=== PATIENT | female | born 1940 | race Caucasian/White ===

== ENCOUNTER 2022-04-18 04:24 | Inpatient (IN) | payer MEDICARE, SELFPAY ==
[2022-04-18] VITALS (8 sets, daily range): BP systolic 121–171; BP diastolic 78–117; PULSE 99–150; RESP 16–40; TEMP 36.8–37.1; O2SAT 91–98; BMI 26.2
--- NOTE | ~2022-04-18 | XR_ITS ---
EXAMINATION: XR CHEST CLINICAL INFORMATION: Cough COMPARISON: None TECHNIQUE: Frontal view of the chest was obtained. FINDINGS: Cardiac leads overlie the chest. Bronchial wall thickening. Small left pleural effusion with basilar opacity. No pneumothorax. The cardiomediastinal silhouette is normal in size, with a calcified aorta. Degenerative changes at the glenohumeral joints. XR/XR chest 1V IMPRESSION: Small left pleural effusion. Bronchial wall thickening could be associated with a small airways process or fluid overload.
--- NOTE | ~2022-04-18 | XR_ITS ---
EXAMINATION: XR CHEST CLINICAL INFORMATION: Shortness of breath COMPARISON: 04/22/2022 TECHNIQUE: Frontal view of the chest was obtained. FINDINGS: Lung volumes are symmetric. Redemonstrated small left pleural effusion with adjacent basilar opacity favored to at least partially be due to atelectasis. Redemonstrated trace right pleural effusion. Upper lungs are well-aerated. No evidence of pneumothorax or overt pulmonary edema. Cardiac silhouette is mildly enlarged for technique. There is atherosclerotic calcification along the aorta. No acute osseous findings are seen. XR/XR chest 1V IMPRESSION: Small left pleural effusion with adjacent basilar opacity favored to at least partially be due to atelectasis. Trace right pleural effusion.
--- NOTE | ~2022-04-18 | XR_ITS ---
EXAMINATION: XR PELVIS CLINICAL INFORMATION: Fall. COMPARISON: None TECHNIQUE: AP view of the pelvis. FINDINGS: No fracture of pelvis or hips. There is joint narrowing marginal bone spurs of degenerative joint disease of hips bilateral. The sacroiliac joints and symphysis pubis are normal. XR/XR pelvis 1-2V IMPRESSION: No acute abnormality.
--- NOTE | ~2022-04-18 | CT_ITS ---
EXAMINATION: CT CHEST WITHOUT CONTRAST CLINICAL INFORMATION: Hypoxia. History of Covid infection. COMPARISON: Previous chest x-ray 04/18/2022 TECHNIQUE: Multidetector volumetric CT imaging of the chest was done. Axial MIP volume rendering provided. Sagittal and coronal reformatted images were obtained. This CT examination was performed using dose optimization techniques as appropriate, variously including the following: *Automated exposure control *Adjustment of mA and/or kV according to patient size (this includes techniques or standardized protocols for targeted exams where dose is matched to indication/reason for exam; i.e. extremities or head) *Use of iterative reconstruction technique DLP: 195 mGy-cm FINDINGS: LUNGS: There are patchy bilateral infiltrates, greatest at the left lung base in the lingula and left lower lobe. No definite evidence of pulmonary edema is seen. MEDIASTINUM: The heart is very enlarged. There is coronary artery calcification. There is a very small pericardial effusion. There are no enlarged hilar or mediastinal lymph nodes. The thoracic aorta is upper normal in size. There is a 1.5 x 2.8 cm left thyroid nodule. PLEURA: There are large left and small right pleural effusions. AXILLA: No lymphadenopathy. No chest wall mass. Diffuse subcutaneous edema. UPPER ABDOMEN: 3 cm cyst in the left kidney. OSSEOUS STRUCTURES: Question old versus compression fracture and the left superior endplate of the L1 vertebral body. CT/CT chest wo con IMPRESSION: Very enlarged heart. Large left and small right pleural effusions. Bilateral infiltrates greatest at the left lung base in the lingula and left lower lobe. No evidence of pulmonary edema. Left thyroid nodule. Follow-up thyroid ultrasound recommended. Fleischner guidelines were followed.
--- NOTE | ~2022-04-18 | CT_ITS ---
EXAMINATION: CT ANGIOGRAM OF THE CHEST WITH AND WITHOUT CONTRAST (CT PULMONARY ANGIOGRAM FOR PE) CLINICAL INFORMATION: Reason for Exam to eval for PE COMPARISON: None TECHNIQUE: Prior to contrast administration, noncontrast localization images were obtained. Subsequently, multidetector volumetric imaging was performed from the thoracic inlet to below the diaphragms following the administration of 80 mL Omnipaque 350 intravenous contrast. No contrast reaction reported Sagittal, coronal, and MIP oblique sagittal reformatted images were obtained on the CT workstation, uploaded to PACS, and reviewed. This CT examination was performed using dose optimization techniques as appropriate, variously including the following: *Automated exposure control *Adjustment of mA and/or kV according to patient size (this includes techniques or standardized protocols for targeted exams where dose is matched to indication/reason for exam; i.e. extremities or head) *Use of iterative reconstruction technique Total exam dose-length product 133 mGy-cm FINDINGS: QUALITY OF STUDY/CONTRAST BOLUS: Satisfactory. PULMONARY ARTERIES: No central or segmental pulmonary emboli. THORACIC AORTA: There is no evidence of aneurysm. LUNG: There is compressive atelectasis left lung base. PLEURA: There is a small to moderate left pleural effusion with mild loculated fluid in the left major fissure. There is a small right pleural effusion seen. MEDIASTINUM: The heart size enlarged. There is no pericardial effusion. Central trachea and the bronchi widely patent. The thyroid lobes are symmetrical and normal. No evidence of septal bowing or right heart strain. CHEST WALL/AXILLA: No axillary or internal mammary lymphadenopathy. OSSEOUS STRUCTURES: No lytic or sclerotic process seen. UPPER ABDOMEN: Visualized liver, spleen appears unremarkable. No reflux of contrast into the hepatic veins to suggest elevated right heart pressures. CT/CT angio chest PE protocol IMPRESSION: No evidence of PE. No evidence of aortic dissection. Small to moderate left and small right pleural effusion with dependent bibasilar compressive atelectasis. VTE: negative
--- NOTE | ~2022-04-18 | CT_ITS ---
EXAMINATION: NONCONTRAST HEAD CT NONCONTRAST CERVICAL SPINE CT INDICATION INFORMATION: Fall COMPARISON: None TECHNIQUE: Separate noncontrast CT examinations of the head and cervical spine were performed. Coronal and sagittal images were created for each examination at the technologist workstation. This CT examination was performed using dose optimization techniques as appropriate, variously including the following: *Automated exposure control *Adjustment of mA and/or kV according to patient size (this includes techniques or standardized protocols for targeted exams where dose is matched to indication/reason for exam; i.e. extremities or head) *Use of iterative reconstruction technique DLP: 1118 mGy-cm FINDINGS: Head: There is no evidence of acute intracranial hemorrhage or territorial infarction. No abnormal mass effect or midline shift is seen. Boothe to white matter differentiation is well preserved. No extra-axial fluid collections are identified. No hydrocephalus. Proportional prominence of the ventricles and sulcal spaces is consistent with moderate volume loss. Confluent periventricular and deep white matter hypoattenuation is consistent with severe small vessel ischemic changes. No acute osseous or soft tissue abnormality. The mastoid air cells and visualized portions of the paranasal sinuses are well aerated. Cervical spine: There is anatomic alignment of the vertebral bodies and posterior elements. The atlantoaxial and atlantooccipital articulations are intact. Vertebral body heights are maintained. There is multilevel intervertebral disc space narrowing with endplate osteophyte formation and facet arthropathy. No evidence of acute fracture. No prevertebral soft tissue swelling. Visualized portions of the lung apices are unremarkable. The left lobe of the thyroid gland is enlarged. CT/CT cervical spine wo con IMPRESSION: 1. No acute intracranial finding. 2. No acute fracture or malalignment of the cervical spine. Mild degenerative change.
--- NOTE | ~2022-04-18 | CT_ITS ---
EXAMINATION: CT HEAD WITHOUT CONTRAST CLINICAL INFORMATION: Unwitnessed fall, on Eliquis, rule out intracranial abnormality. COMPARISON: 04/18/[address] scan[address] TECHNIQUE: Contiguous axial imaging was performed from the skull base to vertex without intravenous administration of contrast. Coronal and sagittal reformatted images were obtained. This CT examination was performed using dose optimization techniques as appropriate, variously including the following: *Automated exposure control *Adjustment of mA and/or kV according to patient size (this includes techniques or standardized protocols for targeted exams where dose is matched to indication/reason for exam; i.e. extremities or head) *Use of iterative reconstruction technique DLP: 666 mGy-cm FINDINGS: There is no evidence of acute intracranial hemorrhage or territorial infarction. Mild to moderate periventricular microvascular changes are seen. Left basal ganglia lacunar infarct versus perivascular space without significant change. No abnormal mass effect or midline shift is seen. Boothe to white matter differentiation is well preserved. No extra-axial fluid collections are identified. The ventricles are normal in size. There is no abnormal attenuation within the brain parenchyma. The osseous structures and soft tissues are normal. The mastoid air cells and visualized portions of the paranasal sinuses are well aerated. CT/CT head/brain wo con IMPRESSION: No acute intracranial pathology.
--- NOTE | 2022-04-18 04:28 | ECG_ITS ---
Test Reason : fall,weakness Blood Pressure : / mmHG Vent. Rate : 141 BPM Atrial Rate : 000 BPM P-R Int : 000 ms QRS Dur : 154 ms QT Int : 356 ms P-R-T Axes : 000 042 -28 degrees QTc Int : 545 ms Atrial fibrillation with rapid ventricular response Right bundle branch block Abnormal ECG No previous ECGs available Referred By: Gayle Delvalle Electronically Signed By:Manny Mitchell
--- NOTE | 2022-04-18 04:39 | ED.GENADULT ---
HPI - General Adult General Chief complaint: Dyspnea Stated complaint: heart palp,sob,on ground for hours s/p fall,no inj Time Seen by Provider: 04/18/22 04:27 Source: patient Mode of arrival: EMS History of Present Illness HPI narrative: 81-year-old female with possible COVID exposure, has not been to a physician since she gave to her daughter. She is not on any prescription medications but reports she has been having shortness of breath with lower extremity swelling as well as a racing heart for approximately 1 month. She reports that she fell and states that she went backwards striking her head. In addition, patient reports that she has the suspected COVID-19 exposure. Related Data Home Medications Medication Instructions Recorded Confirmed No Known Home Meds 04/18/22 04/18/22 Allergies Allergy/AdvReac Type Severity Reaction Status Date / Time No Known Allergies Allergy Verified 04/18/22 06:55 Review of Systems Review of Systems: Pertinent positives and negatives as stated in HPI 10 point review of systems is otherwise negative. [facility] Past Medical History Source: nursing notes reviewed Social History Social History Smoked in Last 30 Days: No Use of substances other than those prescribed or required for medical reasons: No Advance Directives: No Physical Exam ED Vital Signs: Vital Signs - 24 hr 04/18/22 04:27 04/18/22 06:07 Temperature 98.7 F Pulse Rate 145 H 130 H Respiratory Rate 40 H 30 H Blood Pressure 171/117 H 159/113 H Pulse Oximetry 91 L 94 Oxygen Delivery Method Nasal Cannula Nasal Cannula Oxygen Flow Rate 3 BMI result Body Mass Index 26.2 VITAL SIGNS: Reviewed. GENERAL: Well developed, well nourished, in no acute distress. HEAD: Normocephalic/atraumatic, EYES: PERRLA, EOMI EARS: Ext canals without abnormality NOSE: Nares patent bilateral OROPHARYNX: no oral lesions noted, posterior pharynx clear and non-erythematous without noted tonsillar enlargement/erythema/exudates NECK: C-collar is in place, no adenopathy, no midline cervical spine tenderness LUNGS: Normal breath sounds, no obvious wheeze/rhonchi/rales, but tachypnea is present. SpO2 <91> on 3 L nasal cannula CARDIOVASCULAR: Regular rate and rhythm without noted murmurs, no JVD bilateral 2+ pitting edema ABDOMEN: Soft, non-tender, non-distended with bowel sounds. MUSCULOSKELETAL: No tenderness, deformities, or effusions noted on gross inspection. EXTREMITIES: No cyanosis, clubbing or edema. SKIN: Inspection of the skin reveals no rashes NEUROLOGIC: Alert and oriented x 4. Strength and sensation to light touch were grossly intact x 4. Course Course Course Narrative: 81-year-old female with history and clinical presentation most consistent with atrial fibrillation/RVR with CHF exacerbation and associated hypoxia and suspect possibility of COVID-19. On review of all investigations findings consistent with CHF exacerbation likely secondary to atrial fibrillation with RVR and subsequent hypoxia that may be associated with patient's positive COVID-19 results. Patient did receive a total of 10 mg of Lopressor as well as 40 mg of Lasix (she is naive). Patient's elevated heart rate and hypoxia and not secondary to bacterial infection. I discussed the case with Dr. Wayne who accepts admission and understands we will repeat the troponin although initial elevation is felt to be demand in nature. Reevaluation(s) Reevaluation #1: Troponin-225.2, however this in the context no reported chest pain as well as tachycardia. Time: 05:36 Medical Decision Making Lab Data Result diagrams: 04/18/22 05:05 04/18/22 05:05 Labs: Lab Results 04/18/22 04/18/22 04/18/22 Range/Units 05:05 05:05 05:05 WBC 12.7 H (4.8-10.8) X10*3/uL RBC 5.44 (4.20-5.50) X10*6/uL Hgb 15.2 (12.0-16.0) g/dl Hct 46.7 (37.0-47.0) % MCV 85.8 (80.0-98.0) fL MCH 27.9 (27.0-33.0) pg MCHC 32.5 (31.0-35.0) g/dl RDW 17.1 H (11.0-16.0) % Plt Count 200 (160-400) X10*3/uL MPV 10.9 (9.4-12.3) fL Immature Gran % (Auto) 0.4 (0.0-0.4) % Neut % (Auto) 84.9 H (45-73) % Lymph % (Auto) 2.9 L (20-40) % [place] % (Auto) 11.6 H (2-11) % Eos % (Auto) 0.0 (0-4) % Baso % (Auto) 0.2 (0-2) % Lymph # (Auto) 0.4 L (1.2-4.9) X10*3/uL [place] # (Auto) 1.5 H (0.1-1.2) X10*3/uL Eos # (Auto) 0.0 (0.0-0.4) X10*3/uL Baso # (Auto) 0.0 (0.0-0.2) X10*3/uL Abs Immat Gran (auto) 0.05 H (0.00-0.03) X10*3/uL Absolute Neuts (auto) 10.8 H (2.0-8.3) x10*3/uL Absolute Nucleated RBC 0.000 (0.0-0.012) X10*3/uL Nucleated RBC % (auto) 0.0 (0.0-0.2) /100WBC PT 14.8 H (10.0-13.1) SEC INR 1.3 H (0.9-1.1) Sodium 139 (135-145) mmol/L Potassium 4.3 (3.3-5.1) mmol/L Chloride 107 (96-108) mmol/L Carbon Dioxide 19 L (22-29) mmol/L Anion Gap 17 (12-20) BUN 16 (9-16) mg/dL Creatinine 1.21 (0.5-1.4) mg/dL Estim Creat Clear Calc 36.1 Estimated GFR 42 Random Glucose 135 H (60-115) mg/dL Calcium 8.5 (8.4-10.2) mg/dL Total Bilirubin 1.1 H (0.0-1.0) mg/dL AST 22 (5-31) U/L ALT 11 (0-31) U/L Alkaline Phosphatase 77 (39-117) U/L Total Creatine Kinase 150 H (26-140) U/L Troponin I High Sens (<3.5-17.0) ng/L B-Natriuretic Peptide (<100) pg/mL Total Protein 5.5 L (6.5-8.0) g/dL Albumin 3.3 L (3.5-5.0) g/dL Urine Color Urine Appearance Urine pH (5.0-8.0) Ur Specific [place] (1.005-1.025) Urine Protein (NEG-TRACE) MG/DL Urine Glucose (UA) (NEG) MG/DL Urine Ketones (NEG) MG/DL Urine Blood (NEG) Urine Nitrite (NEG) Ur Leukocyte Esterase (NEG) Urine RBC (0) /HPF Urine WBC (0-4) /HPF Ur Squamous Epith Cells /LPF Urine Bacteria /LPF Urine Mucus /LPF COVID-19 ([facility]) (Negative) COVID-19 Clin Com 04/18/22 04/18/22 04/18/22 Range/Units 05:05 05:05 05:18 WBC (4.8-10.8) X10*3/uL RBC (4.20-5.50) X10*6/uL Hgb (12.0-16.0) g/dl Hct (37.0-47.0) % MCV (80.0-98.0) fL MCH (27.0-33.0) pg MCHC (31.0-35.0) g/dl RDW (11.0-16.0) % Plt Count (160-400) X10*3/uL MPV (9.4-12.3) fL Immature Gran % (Auto) (0.0-0.4) % Neut % (Auto) (45-73) % Lymph % (Auto) (20-40) % [place] % (Auto) (2-11) % Eos % (Auto) (0-4) % Baso % (Auto) (0-2) % Lymph # (Auto) (1.2-4.9) X10*3/uL [place] # (Auto) (0.1-1.2) X10*3/uL Eos # (Auto) (0.0-0.4) X10*3/uL Baso # (Auto) (0.0-0.2) X10*3/uL Abs Immat Gran (auto) (0.00-0.03) X10*3/uL Absolute Neuts (auto) (2.0-8.3) x10*3/uL Absolute Nucleated RBC (0.0-0.012) X10*3/uL Nucleated RBC % (auto) (0.0-0.2) /100WBC PT (10.0-13.1) SEC INR (0.9-1.1) Sodium (135-145) mmol/L Potassium (3.3-5.1) mmol/L Chloride (96-108) mmol/L Carbon Dioxide (22-29) mmol/L Anion Gap (12-20) BUN (9-16) mg/dL Creatinine (0.5-1.4) mg/dL Estim Creat Clear Calc Estimated GFR Random Glucose (60-115) mg/dL Calcium (8.4-10.2) mg/dL Total Bilirubin (0.0-1.0) mg/dL AST (5-31) U/L ALT (0-31) U/L Alkaline Phosphatase (39-117) U/L Total Creatine Kinase (26-140) U/L Troponin I High Sens 225.2 H* (<3.5-17.0) ng/L B-Natriuretic Peptide 1417 H (<100) pg/mL Total Protein (6.5-8.0) g/dL Albumin (3.5-5.0) g/dL Urine Color DK YELLOW Urine Appearance HAZY Urine pH 6.0 (5.0-8.0) Ur Specific [place] >= 1.030 H (1.005-1.025) Urine Protein 2+ H (NEG-TRACE) MG/DL Urine Glucose (UA) NEG (NEG) MG/DL Urine Ketones 15 (NEG) MG/DL Urine Blood 2+ H (NEG) Urine Nitrite POS H (NEG) Ur Leukocyte Esterase NEG (NEG) Urine RBC 1-4 (0) /HPF Urine WBC 5-9 H (0-4) /HPF Ur Squamous Epith Cells TRACE /LPF Urine Bacteria 1+ /LPF Urine Mucus 1+ /LPF COVID-19 ([facility]) Positive A (Negative) COVID-19 Clin Com See Note ECG Data Attestation: I personally reviewed and interpreted this ECG as follows: Prior ECG tracings: not available for review Interpretation: Atrial fibrillation with RVR, right bundle branch block, no EKG for comparison, no STEMI, HR-141. Critical Care Time Critical Care Time Critical Care Time: Yes Total Critical Care Time: 30 Attestation: I personally attest to this time spent taking care of the patient. Discharge Plan Discharge Clinical Impression: Atrial fibrillation with RVR, CHF exacerbation, Hypoxia, Lab test positive for detection of COVID-19 virus Patient Disposition: Admitted As Inpatient
[2022-04-18] MEDS: Furosemide 40 MG/4 ML VIAL IVPUSH ×2 (04:40→18:07)
[2022-04-18] MEDS: Metoprolol Tartrate 5 MG/5 ML VIAL IVPUSH ×3 (04:40→07:20)
[2022-04-18 05:09] LABS: MANUAL DIFF FLAG NO
[2022-04-18 05:10] LABS: Basophils Percent Auto 0.2 % (0-2); Hematocrit 46.7 % (37.0-47.0); Hemoglobin 15.2 g/dl (12.0-16.0); Imm Gran Abs Auto 0.05 X10*3/uL (0.00-0.03); Imm Gran Pct Auto 0.4 % (0.0-0.4); Lymphocytes Absolute Auto 0.4 X10*3/uL (1.2-4.9); Lymphocytes Percent Auto 2.9 % (20-40); Mean Corpuscular HGB Conc 32.5 g/dl (31.0-35.0); Mean Corpuscular Hemoglobin 27.9 pg (27.0-33.0); Mean Corpuscular Volume 85.8 fL (80.0-98.0); Mean Platelet Volume 10.9 fL (9.4-12.3); Monocytes Absolute Auto 1.5 X10*3/uL (0.1-1.2); Monocytes Percent Auto 11.6 % (2-11); Neutrophils Absolute Auto 10.8 x10*3/uL (2.0-8.3); Neutrophils Percent Auto 84.9 % (45-73); Platelet Count 200 X10*3/uL (160-400); Red Blood Count 5.44 X10*6/uL (4.20-5.50); Red Cell Distribution Width 17.1 % (11.0-16.0); White Blood Count 12.7 X10*3/uL (4.8-10.8)
[2022-04-18 05:11] LABS: Appearance Urine HAZY; Color Urine DK YELLOW; Glucose Urine UA NEG (NEG); Leukocyte Esterase Urine NEG (NEG); Nitrite Urine POS (NEG); Specific Gravity - Urine >= 1.030 (1.005-1.025); UACC Culture Trigger YES; Urine Blood 2+ (NEG); Urine Ketones 15 MG/DL (NEG); Urine Protein 2+ MG/DL (NEG-TRACE)
[2022-04-18 05:16] LABS: INTERNATIONAL NORM RATIO 1.3 (0.9-1.1); Prothrombin Time 14.8 SEC (10.0-13.1)
[2022-04-18 05:18] LABS: Bacteria Urine 1+ /LPF; Mucus Urine 1+ /LPF; Squamous Epithelial Cell Urine TRACE /LPF
[2022-04-18 05:29] LABS: Alanine Aminotransferase 11 U/L (0-31); Albumin Level 3.3 g/dL (3.5-5.0); Alkaline Phosphatase 77 U/L (39-117); Anion Gap 17 (12-20); Aspartate Amino Transferase 22 U/L (5-31); Bilirubin Total 1.1 mg/dL (0.0-1.0); Blood Urea Nitrogen 16 mg/dL (9-16); Calcium 8.5 mg/dL (8.4-10.2); Carbon Dioxide 19 mmol/L (22-29); Chloride 107 mmol/L (96-108); Creatinine Clr Calc Pharmacy 36.1; Estimated Glomerular Filt Rate 42; Glucose Random 135 mg/dL (60-115); Potassium 4.3 mmol/L (3.3-5.1); Sodium 139 mmol/L (135-145); Total Protein 5.5 g/dL (6.5-8.0)
[2022-04-18 05:30] LABS: COVID-19 Test Positive (Negative)
[2022-04-18 05:34] LABS: B Type Natriuretic Peptide 1417 pg/mL (<100); Troponin-I High Sensitivity 225.2 ng/L (<3.5-17.0)
[2022-04-18 08:03] LABS: Troponin-I High Sensitivity 251.7 ng/L (<3.5-17.0)
[2022-04-18 08:42] LABS: D Dimer High Sensitivity 561 NG/ML
--- NOTE | 2022-04-18 08:47 | PHA.MEDREC ---
Pharmacy Consult ? Medication Reconciliation Pharmacy has completed the medication reconciliation. Pt states she only takes OTC medications.
[2022-04-18 08:48] LABS: C Reactive Protein 4.46 mg/dL (< or = 0.50); Lactate Dehydrogenase 243 U/L (122-220)
--- NOTE | 2022-04-18 09:05 | PM.IMHP ---
History of Present Illness Date of Service: 04/18/22 Chief Complaint: Fall This is an 81 year old female who denies any significant PMH (although she has not seen a medical provider in > 45 years) who presents to [facility] after sustained a mechanical fall. The patient reports she was ambulating when her socks which are loose caused her slip and fall. She denies any loss of consciousness. She denies any current injury or pain. Upon further questioning about her cardic status, she reports the issues started about 1 month ago. She reports palpitations with exertion began first. SHe reports that slowly over the next weeks, she began feeling short of breath and fatigued with less and less exertion. She reports she noted LE edema as well. She is unsure if she has gained weight. She reports that she felt chills the last few days and on the day prior to admission, a non-productive cough started. She is unaware of any sick contacts. She denies recent travel. She reports she lives alone in a 1 story house. Upon arrival to the ED, the patient was noted to be in rapid a. fib. She has signs and symptoms of fluid overload. Her BNP is elevated and CXR showing pleural effusions. She is also found to be covid positive. She has 3 doses of IV metoprolol, IV lasix. Her HR has improved, but still in the 110s. She has put out 1.3L of urine after lasix but still remains tachypenic with low normal saturations on 3L (90-92). Her covid testing is positive. The patient is unsure if she has received the COVID-19 vaccine. She will now be admitted for further work up and treatment. Review of Systems Review of Systems: negative except HPI PMFSH Cognitive capacity: Denies any known prior medical history Pertinent family history: Heart disease and breast Ca in her mother Surgical History (Updated 04/18/22 @ 09:12 by Lion Quintanilla MD) No pertinent past surgical history Social History (Updated 04/18/22 @ 09:12 by Lion Quintanilla MD) Alcohol intake: never Patient Tobacco Use Status: Never used Tobacco Smoked in Last 30 Days: No Use of substances other than those prescribed or required for medical reasons: No Advance Directives: No Meds Allergies Allergy/AdvReac Type Severity Reaction Status Date / Time No Known Allergies Allergy Verified 04/18/22 06:55 Active Medications: Current Medications Acetaminophen (Acetaminophen 325 Mg Tablet) 650 mg PO Q6H PRN PRN Reason: Pain, Mild (Pain Scale 1-3) Dexamethasone Sodium Phosphate (Dexamethasone Sod Phosphate 4 Mg/Ml Vial) 6 mg IVPUSH DAILY [facility] Stop: 04/27/22 09:01 Furosemide (Furosemide 40 Mg/4 Ml Vial) 40 mg IVPUSH BID@0900,1800 [facility]; Protocol Metoprolol Tartrate (Metoprolol Tartrate 25 Mg Tablet) 25 mg PO Q6H [facility]; Protocol Ondansetron HCl (Ondansetron Hcl 4 Mg/2 Ml Vial) 4 mg IVPUSH Q8H PRN PRN Reason: Nausea and Vomiting Pharmacy Consult (Consult Rx Perform Med Rec) 1 each MISCELLANE ONCE PRN PRN Reason: Consult order Sodium Chloride (0.9 % Sodium Chloride Flush 3 Ml Syringe) 3 ml IVFLUSH QSHIFT [facility] Home Medications Medication Instructions Recorded Confirmed Last Taken Type aspirin 81 mg tablet,delayed 81 mg PO DAILY 04/18/22 04/18/22 Unknown History release vitamin A-vitamin C-vit E-min 1 tab PO DAILY 04/18/22 04/18/22 Unknown History tablet Physical Exam Vital Signs and Narrative: Vital Signs: Last Vital Signs Temp 98.6 F 04/18/22 07:12 Pulse 106 H 04/18/22 07:54 Resp 35 H 04/18/22 07:54 BP 147/94 H 04/18/22 07:54 Pulse Ox 95 04/18/22 07:54 O2 Del Method 04/18/22 07:54 O2 Flow Rate 3 04/18/22 07:54 Oxygen Flow Rate 2 04/18/22 04:27 BMI result Body Mass Index 26.2 Const: Other: Constitutional - Awake and Alert, in mild respiratory distress with rates in the mid to upper 20s Eyes - PERRLA, EOMI Cardiovascular - S1S2, IRR (rates in the 110s on tele); +JVD; 2+ b/l pitting edema in the LE Respiratory - Diminised sounds as the bases Gastrointestinal - NT / ND; +BS; No rebound or guarding - No CVA tenderness Extremities - no calf tenderness bilaterally, Musculoskeletal - Normal inspection, normal ROM Skin - Warm/Dry Neurological - Alert & oriented x3, No focal deficit Psychological - Appropriate affect Results Labs CBC and Chem 7: 0708/22 05:05 04/18/22 05:05 Labs: Laboratory Results - last 24 hr 04/18/22 04/18/22 04/18/22 05:05 05:05 05:05 MCV 85.8 MCH 27.9 MCHC 32.5 RDW 17.1 H Plt Count 200 MPV 10.9 Immature Gran % (Auto) 0.4 Neut % (Auto) 84.9 H Lymph % (Auto) 2.9 L [place] % (Auto) 11.6 H Eos % (Auto) 0.0 Baso % (Auto) 0.2 Lymph # (Auto) 0.4 L [place] # (Auto) 1.5 H Eos # (Auto) 0.0 Baso # (Auto) 0.0 Abs Immat Gran (auto) 0.05 H Absolute Neuts (auto) 10.8 H Absolute Nucleated RBC 0.000 Nucleated RBC % (auto) 0.0 PT 14.8 H INR 1.3 H D-Dimer High Sensitivty Anion Gap 17 Estim Creat Clear Calc 36.1 Estimated GFR 42 Random Glucose 135 H Calcium 8.5 Total Bilirubin 1.1 H AST 22 ALT 11 Alkaline Phosphatase 77 Lactate Dehydrogenase 243 H Total Creatine Kinase 150 H Troponin I High Sens C-Reactive Protein 4.46 H B-Natriuretic Peptide Total Protein 5.5 L Albumin 3.3 L Urine Color Urine Appearance Urine pH Ur Specific [place] Urine Protein Urine Glucose (UA) Urine Ketones Urine Blood Urine Nitrite Ur Leukocyte Esterase Urine RBC Urine WBC Ur Squamous Epith Cells Urine Bacteria Urine Mucus COVID-19 ([facility]) COVID-19 Clin Com 04/18/22 04/18/22 04/18/22 05:05 05:05 05:05 MCV MCH MCHC RDW Plt Count MPV Immature Gran % (Auto) Neut % (Auto) Lymph % (Auto) [place] % (Auto) Eos % (Auto) Baso % (Auto) Lymph # (Auto) [place] # (Auto) Eos # (Auto) Baso # (Auto) Abs Immat Gran (auto) Absolute Neuts (auto) Absolute Nucleated RBC Nucleated RBC % (auto) PT INR D-Dimer High Sensitivty 561 Anion Gap Estim Creat Clear Calc Estimated GFR Random Glucose Calcium Total Bilirubin AST ALT Alkaline Phosphatase Lactate Dehydrogenase Total Creatine Kinase Troponin I High Sens 225.2 H* C-Reactive Protein B-Natriuretic Peptide 1417 H Total Protein Albumin Urine Color DK YELLOW Urine Appearance HAZY Urine pH 6.0 Ur Specific [place] >= 1.030 H Urine Protein 2+ H Urine Glucose (UA) NEG Urine Ketones 15 Urine Blood 2+ H Urine Nitrite POS H Ur Leukocyte Esterase NEG Urine RBC 1-4 Urine WBC 5-9 H Ur Squamous Epith Cells TRACE Urine Bacteria 1+ Urine Mucus 1+ COVID-19 ([facility]) COVID-19 Clin Com 04/18/22 04/18/22 05:18 07:31 MCV MCH MCHC RDW Plt Count MPV Immature Gran % (Auto) Neut % (Auto) Lymph % (Auto) [place] % (Auto) Eos % (Auto) Baso % (Auto) Lymph # (Auto) [place] # (Auto) Eos # (Auto) Baso # (Auto) Abs Immat Gran (auto) Absolute Neuts (auto) Absolute Nucleated RBC Nucleated RBC % (auto) PT INR D-Dimer High Sensitivty Anion Gap Estim Creat Clear Calc Estimated GFR Random Glucose Calcium Total Bilirubin AST ALT Alkaline Phosphatase Lactate Dehydrogenase Total Creatine Kinase Troponin I High Sens 251.7 H* C-Reactive Protein B-Natriuretic Peptide Total Protein Albumin Urine Color Urine Appearance Urine pH Ur Specific [place] Urine Protein Urine Glucose (UA) Urine Ketones Urine Blood Urine Nitrite Ur Leukocyte Esterase Urine RBC Urine WBC Ur Squamous Epith Cells Urine Bacteria Urine Mucus COVID-19 ([facility]) Positive A COVID-19 Clin Com See Note Imaging Radiologist's Impressions: Impressions Cervical Spine CT 04/18/22 05:45 IMPRESSION: 1. No acute intracranial finding. 2. No acute fracture or malalignment of the cervical spine. Mild degenerative change. Head CT 04/18/22 05:45 IMPRESSION: 1. No acute intracranial finding. 2. No acute fracture or malalignment of the cervical spine. Mild degenerative change. Chest X-Ray 04/18/22 06:45 IMPRESSION: Small left pleural effusion. Bronchial wall thickening could be associated with a small airways process or fluid overload. Assessment and Plan (1) CHF exacerbation: Status: Acute Plan This is an 81 year old female who has not seen a medical provider for >45 years who presented to [facility] after a mechanical fall. She is found to be in acute CHF with rapid a. fib rvr + COVID19 positive. She will be admitted for further work up. 1. Acute (new-onset) CHF 1a. Acute respiratory failure with hypoxia Patient is clinically in CHF. Hher BNP, CXR are also consistent with the same. Patient has increased WOB and tahcypnea with 3L O2 required to keep saturation above 90% Has put on 1.3L with IV lasix 40mg; start 40mg BID (next dose to be started later today). 2d Echo and cardiology consult 2. A. Fib with RVR (new-onset) pt endorses symptoms x 1 month rates did improve with IV push metoprolol; will try to avoid cardizem if possible (until echo done); use PO metoprolol 25mg q6 hours for now CHADSVASC score at least 5 (Age, Sex, CHF, HTN); HAS-BLED score 2 (Age, HTN); Discussed risk vs benefits of OAC and patient is agreeable on starting Eliquis. 3. COVID-19 Check inflammatory biomakers IV decadron isoloation per procotol 4. Elevated HS trop-I Flat and likely from demand ischemia (A. fib/CHF/COVID) Full COde DVT pptx -- to start Eliquis Endorses her daughter, Tammie, as health care proxy. In light of the patients new onset a. fib with rvr, acute chf and covid19+, I anticipate a medically necessary, inpatient hospitalization, which is likely to span at least 2 midnights for treatment and monitoring of the above mentioned conditions. This cannot be completed in a less acute setting. Quality Stroke Does the patient have a stroke diagnosis?: No VTE Prior VTE?: No VTE Risk Level:: Medical - moderate - high VTE Device Contraindication: Treatment Not Indicated VTE Drug Contraindication: N/A - Med Ordered
[2022-04-18 09:10] LABS: Ferritin 134 ng/mL (10-250)
--- NOTE | 2022-04-18 10:34 | PM.CNCAR ---
History of Present Illness History of Present Illness Date of Service: 04/18/22 Requesting physician: Lion Quintanilla Chief complaint: A fib, CHF, COVID Narrative: [age] year female presenting for shortness of breath and palpitations and diagnosed with COVID-19 infection. She has been experiencing palpitations and shortness of breath for few months. She said when she ambulates her heart starts racing. She was noted to be in AFib on admission and started on Eliquis and metoprolol 25 mg q.6. She has lower extremity edema as well as shortness of breath ongoing for 1-2 months. Denying any chest pain. Being treated for COVID-19 infection. [facility] Surgical History Surgical History (Updated 04/18/22 @ 09:12 by Lion Quintanilla MD) No pertinent past surgical history Social History Social History (Updated 04/18/22 @ 09:12 by Lion Quintanilla MD) Alcohol intake: never Patient Tobacco Use Status: Never used Tobacco Smoked in Last 30 Days: No Use of substances other than those prescribed or required for medical reasons: No Advance Directives: No Meds Allergies Allergy/AdvReac Type Severity Reaction Status Date / Time No Known Allergies Allergy Verified 04/18/22 06:55 Active Medications: Current Medications Acetaminophen (Acetaminophen 325 Mg Tablet) 650 mg PO Q6H PRN PRN Reason: Pain, Mild (Pain Scale 1-3) Apixaban (Apixaban 5 Mg Tablet) 5 mg PO BID [facility] Dexamethasone Sodium Phosphate (Dexamethasone Sod Phosphate 4 Mg/Ml Vial) 6 mg IVPUSH DAILY [facility] Stop: 04/27/22 09:01 Furosemide (Furosemide 40 Mg/4 Ml Vial) 40 mg IVPUSH BID@0900,1800 [facility]; Protocol Metoprolol Tartrate (Metoprolol Tartrate 25 Mg Tablet) 25 mg PO Q6H [facility]; Protocol Ondansetron HCl (Ondansetron Hcl 4 Mg/2 Ml Vial) 4 mg IVPUSH Q8H PRN PRN Reason: Nausea and Vomiting Pharmacy Consult (Consult Rx Perform Med Rec) 1 each MISCELLANE ONCE PRN PRN Reason: Consult order Sodium Chloride (0.9 % Sodium Chloride Flush 3 Ml Syringe) 3 ml IVFLUSH QSHIFT [facility] Home Medications Medication Instructions Recorded Confirmed Last Taken Type aspirin 81 mg tablet,delayed 81 mg PO DAILY 04/18/22 04/18/22 Unknown History release vitamin A-vitamin C-vit E-min 1 tab PO DAILY 04/18/22 04/18/22 Unknown History tablet Physical Exam Vital Signs: Vital Signs: Last Vital Signs Temp 98.6 F 04/18/22 07:12 Pulse 106 H 04/18/22 07:54 Resp 35 H 04/18/22 07:54 BP 147/94 H 04/18/22 07:54 Pulse Ox 95 04/18/22 07:54 O2 Del Method 04/18/22 07:54 O2 Flow Rate 3 04/18/22 07:54 Oxygen Flow Rate 2 04/18/22 04:27 BMI result Body Mass Index 26.2 GENERAL APPEARANCE: in no acute distress, pleasant. NECK: no carotid bruit, mild jugular venous distention. SKIN: no suspicious lesions, warm and dry. HEART: no murmurs, irregularly irregular rhythm LUNGS: clear to auscultation bilaterally. ABDOMEN: soft, nontender. EXTREMITIES: 2 to 3+ edema to the knees. PERIPHERAL PULSES: equal. NEUROLOGIC: No gross deficits, AAO X 3 Objective Labs and Meds Result diagrams: 04/18/22 05:05 04/18/22 05:05 Lab results: Laboratory Results - last 24 hr 04/18/22 04/18/22 04/18/22 05:05 05:05 05:05 WBC 12.7 H RBC 5.44 Hgb 15.2 Hct 46.7 MCV 85.8 MCH 27.9 MCHC 32.5 RDW 17.1 H Plt Count 200 MPV 10.9 Immature Gran % (Auto) 0.4 Neut % (Auto) 84.9 H Lymph % (Auto) 2.9 L Sutton % (Auto) 11.6 H Eos % (Auto) 0.0 Baso % (Auto) 0.2 Lymph # (Auto) 0.4 L Sutton # (Auto) 1.5 H Eos # (Auto) 0.0 Baso # (Auto) 0.0 Abs Immat Gran (auto) 0.05 H Absolute Neuts (auto) 10.8 H Absolute Nucleated RBC 0.000 Nucleated RBC % (auto) 0.0 PT 14.8 H INR 1.3 H D-Dimer High Sensitivty Sodium 139 Potassium 4.3 Chloride 107 Carbon Dioxide 19 L Anion Gap 17 BUN 16 Creatinine 1.21 Estim Creat Clear Calc 36.1 Estimated GFR 42 Random Glucose 135 H Calcium 8.5 Ferritin 134 Total Bilirubin 1.1 H AST 22 ALT 11 Alkaline Phosphatase 77 Lactate Dehydrogenase 243 H Total Creatine Kinase 150 H Troponin I High Sens C-Reactive Protein 4.46 H B-Natriuretic Peptide Total Protein 5.5 L Albumin 3.3 L Procalcitonin Urine Color Urine Appearance Urine pH Ur Specific [place] Urine Protein Urine Glucose (UA) Urine Ketones Urine Blood Urine Nitrite Ur Leukocyte Esterase Urine RBC Urine WBC Ur Squamous Epith Cells Urine Bacteria Urine Mucus COVID-19 ([facility]) COVID-19 Clin Com 04/18/22 04/18/22 04/18/22 05:05 05:05 05:05 WBC RBC Hgb Hct MCV MCH MCHC RDW Plt Count MPV Immature Gran % (Auto) Neut % (Auto) Lymph % (Auto) Sutton % (Auto) Eos % (Auto) Baso % (Auto) Lymph # (Auto) Sutton # (Auto) Eos # (Auto) Baso # (Auto) Abs Immat Gran (auto) Absolute Neuts (auto) Absolute Nucleated RBC Nucleated RBC % (auto) PT INR D-Dimer High Sensitivty 561 Sodium Potassium Chloride Carbon Dioxide Anion Gap BUN Creatinine Estim Creat Clear Calc Estimated GFR Random Glucose Calcium Ferritin Total Bilirubin AST ALT Alkaline Phosphatase Lactate Dehydrogenase Total Creatine Kinase Troponin I High Sens 225.2 H* C-Reactive Protein B-Natriuretic Peptide 1417 H Total Protein Albumin Procalcitonin Urine Color DK YELLOW Urine Appearance HAZY Urine pH 6.0 Ur Specific [place] >= 1.030 H Urine Protein 2+ H Urine Glucose (UA) NEG Urine Ketones 15 Urine Blood 2+ H Urine Nitrite POS H Ur Leukocyte Esterase NEG Urine RBC 1-4 Urine WBC 5-9 H Ur Squamous Epith Cells TRACE Urine Bacteria 1+ Urine Mucus 1+ COVID-19 ([facility]) COVID-19 Clin Com 04/18/22 04/18/22 04/18/22 05:05 05:18 07:31 WBC RBC Hgb Hct MCV MCH MCHC RDW Plt Count MPV Immature Gran % (Auto) Neut % (Auto) Lymph % (Auto) Sutton % (Auto) Eos % (Auto) Baso % (Auto) Lymph # (Auto) Sutton # (Auto) Eos # (Auto) Baso # (Auto) Abs Immat Gran (auto) Absolute Neuts (auto) Absolute Nucleated RBC Nucleated RBC % (auto) PT INR D-Dimer High Sensitivty Sodium Potassium Chloride Carbon Dioxide Anion Gap BUN Creatinine Estim Creat Clear Calc Estimated GFR Random Glucose Calcium Ferritin Total Bilirubin AST ALT Alkaline Phosphatase Lactate Dehydrogenase Total Creatine Kinase Troponin I High Sens 251.7 H* C-Reactive Protein B-Natriuretic Peptide Total Protein Albumin Procalcitonin 0.30 Urine Color Urine Appearance Urine pH Ur Specific [place] Urine Protein Urine Glucose (UA) Urine Ketones Urine Blood Urine Nitrite Ur Leukocyte Esterase Urine RBC Urine WBC Ur Squamous Epith Cells Urine Bacteria Urine Mucus COVID-19 ([facility]) Positive A COVID-19 Clin Com See Note Imaging Radiologist's impression: Impressions Cervical Spine CT 04/18/22 05:45 IMPRESSION: 1. No acute intracranial finding. 2. No acute fracture or malalignment of the cervical spine. Mild degenerative change. Head CT 04/18/22 05:45 IMPRESSION: 1. No acute intracranial finding. 2. No acute fracture or malalignment of the cervical spine. Mild degenerative change. Chest X-Ray 04/18/22 06:45 IMPRESSION: Small left pleural effusion. Bronchial wall thickening could be associated with a small airways process or fluid overload. Assessment and Plan (1) Atrial fibrillation with RVR: Status: Acute (2) CHF exacerbation: Status: Acute Plan Pleasant 81-year-old female who is presenting for COVID-19 infection. She has AFib with RVR and evidence of congestive heart failure. Agree with IV diuretics. Agree with Eliquis and metoprolol for now. If heart rate is not controlled with metoprolol then I will consider digoxin loading. Recommend echocardiogram to assess for any LV dysfunction or RV strain. If any RV dysfunction is noted then she will require CT pulmonary angiogram to rule out PE. We will follow along with you. Thank you for allowing me to participate in the care of your patient. Please feel free to contact me if you have any questions. Procedures Date of Service Date of Service: 04/18/22
--- NOTE | 2022-04-18 11:00 | CA_ITS ---
Transthoracic Echocardiogram Patient (Last, First, Middle): Shanti Shipley, Gender: Female Date of : 1940 Age: 81 Procedure Date: 04/18/2022 Procedure Type: Transthoracic Echocardiogram Location: [facility] [place] Height: 167.64 cm Weight: 75.75 kg BSA: 1.85 m2 Heart Rate: 104 bpm BP: 147 / 94 mmHg Dehydrogenation Supervisor: SB Referring MD: Lion Quintanilla MD Production Supervisor Off Shift: Manny Mitchell MD Symptoms: new onset a. fib and chf Study Quality: Adequate ECG Rhythm: Afib w RVR Conclusions: - There is mildly increased left ventricular wall thickness. The left ventricular systolic function is severely decreased. The visually estimated ejection fraction is between 10-15%. - Normal right ventricular cavity size. There is severely decreased right ventricular systolic function. - The left atrium is moderately dilated. RA is dilated. - There is mild to moderate tricuspid valve regurgitation. Significantly elevated right atrial pressure. Mild pulmonary hypertension is present. - There is mild dilatation of the ascending aorta measuring 3.50 cm. - There is a moderate pleural effusion. Findings Left Ventricle There is mildly increased left ventricular wall thickness. The left ventricular systolic function is severely decreased. The visually estimated ejection fraction is between 10-15%. There is severe global hypokinesis. Diastolic function is indeterminate on the basis of available data. Left ventricle is dilated. Right Ventricle Normal right ventricular cavity size. There is severely decreased right ventricular systolic function. Atria The left atrium is moderately dilated. RA is dilated. Aortic Valve There is a normal trileaflet aortic valve. There is mild calcification of the aortic valve. There is no aortic valve stenosis. There is trace (trivial) aortic valve regurgitation. Mitral Valve There is severe mitral annular calcification. There is trace mitral valve regurgitation. There is no mitral valve stenosis. Pulmonic Valve Normal pulmonic valve structure and function. There is trace pulmonic valve regurgitation. Tricuspid Valve Normal tricuspid valve structure and function. There is mild to moderate tricuspid valve regurgitation. Significantly elevated right atrial pressure. Mild pulmonary hypertension is present. Great Vessels There is mild dilatation of the ascending aorta measuring 3.50 cm. The visualized portions of the pulmonary artery and branches are normal. Venous The inferior vena cava is dilated and collapses less than 50% with inspiration. Pericardium/Pleural There is no evidence of pericardial effusion. There is a moderate pleural effusion. Prior Study Comparison No prior study available for comparison. Measurements 2D Linear Measurements IVSd: 1.11 0.6-0.9/0.6-1.0 cm LVIDd: 6.01 3.9-5.3/4.2-5.9 cm LVIDd Index: 3.25 2.4-3.2/2.2-3.1 cm/m2 LVIDs: 5.59 2.0-3.6 cm LVPWd: 0.90 0.7-1.1 cm LA Diam: 3.90 2.7-3.8/3.0-4.0 cm LAIDs Index: 2.11 1.5-2.3 cm/m2 LV Mass: 311.52 67-162/88-224 g LV Mass Index: 168.39 43-95/49-115 g/m2 LVOT Diam: 2.20 3.0+(-)1.3 cm 2D Systolic Function EF 4C: 28.70 >55% EF 2C: 10.70 >55% EF BiP: 18.20 >55% Aortic Valve AoV Pk Stepan: 1.08 AoV Mn Stepan: 0.80 AoV VTI: 0.14 AoV Pk Grad: 5.00 Aov Mn Grad: 3.00 MARLENE Cont.VTI: 2.25 LVOT LVOT Pk Stepan: 0.60 LVOT Mn Stepan: 0.42 LVOT VTI: 0.08 LVOT Pk Grad: 1.00 LVOT Mn Grad: 1.00 LVOT Diam: 2.20 LVOT Area: 3.80 Right Ventricle TAPSE (mm): 7.70 TVS' Stepan: 6.60 Tricuspid Valve TR Pk Stepan: 2.51 TR Pk Grad: 25.00 RA Press: 15.00 RVSP: 40.00 Great Vessels Aorta Sinus of Valsalva: 3.10 2.0-3.5 cm Ao Asc: 3.50 2.1-3.4 cm Pulmonary Valve PV Pk Stepan: 0.55 Peak PV Grad: 1.00 Updated in Other Vendor System with Status of Final Manny Mitchell MD electronically signed on 04/19/2022 9:41:47 AM with status of Final
[2022-04-18] MEDS: Apixaban 5 MG TABLET PO ×2 (11:46→20:36)
[2022-04-18] MEDS: dexAMETHasone sod phosphate 4 MG/ML VIAL 6 MG IVPUSH (11:46)
[2022-04-18] MEDS: Metoprolol Tartrate 25 MG TABLET PO ×3 (11:49→20:32)
--- NOTE | 2022-04-18 15:30 | PC.NURSE ---
THIS NEEDLE SETTER ASSUMED CARE OF THIS PT AT 1400. PT A+O, NO C/O PAIN, VSS. PT IN PRIVATE ROOM D/T + COVID.
[2022-04-18] MEDS: 0.9 % Sodium Chloride Flush 3 ML SYRINGE IVFLUSH (16:32)
--- NOTE | 2022-04-18 16:38 | PC.NURSE ---
CARE GIVEN AND PATIENT REPOSITION ,PATIENT NOW WATCHING TELEVISION .
[2022-04-19] MEDS: 0.9 % Sodium Chloride Flush 3 ML SYRINGE IVFLUSH (00:43)
--- NOTE | 2022-04-19 02:46 | PC.NURSE ---
RESTING COMF.MONITOR AFIB,HR 90'S.NO SOB.LUNGS CLEAR/DIM.O2 ON 3L.DENIES PAIN.EDEMA/REDNESS TO LOWER EXT.
[2022-04-19 04:15] VITALS: BP 124/84; PULSE 100; RESP 17; TEMP 36.8; O2SAT 94
[2022-04-19] MEDS: Metoprolol Tartrate 25 MG TABLET PO (05:38)
[2022-04-19 07:30] LABS: Hematocrit 47.4 % (37.0-47.0); Hemoglobin 15.5 g/dl (12.0-16.0); Mean Corpuscular HGB Conc 32.7 g/dl (31.0-35.0); Mean Corpuscular Hemoglobin 28.2 pg (27.0-33.0); Mean Corpuscular Volume 86.3 fL (80.0-98.0); Mean Platelet Volume 11.8 fL (9.4-12.3); Platelet Count 203 X10*3/uL (160-400); Red Blood Count 5.49 X10*6/uL (4.20-5.50); Red Cell Distribution Width 16.9 % (11.0-16.0); White Blood Count 9.6 X10*3/uL (4.8-10.8)
[2022-04-19 07:37] LABS: Anion Gap 14 (12-20); Blood Urea Nitrogen 20 mg/dL (9-16); Calcium 8.1 mg/dL (8.4-10.2); Carbon Dioxide 25 mmol/L (22-29); Chloride 103 mmol/L (96-108); Creatinine Clr Calc Pharmacy 37.1; Estimated Glomerular Filt Rate 44; Glucose Random 118 mg/dL (60-115); Potassium 4.3 mmol/L (3.3-5.1); Sodium 138 mmol/L (135-145)
[2022-04-19 08:22] VITALS: BP 124/82; PULSE 97; RESP 20; O2SAT 94
--- NOTE | 2022-04-19 10:50 | P.PNIM_ITS ---
Subjective Subjective Date of Service: 04/19/22 Interval History: seen and examined this AM feels sob still denies chest pain Review of Systems negative except HPI Physical Exam Vital Signs: Vital Signs: Last Vital Signs Temp 98.3 F 04/19/22 04:15 Pulse 97 04/19/22 08:22 Resp 20 04/19/22 08:22 BP 124/82 04/19/22 08:22 Pulse Ox 94 04/19/22 08:22 O2 Del Method 04/19/22 08:22 O2 Flow Rate 2 04/19/22 04:15 Oxygen Flow Rate 2 04/18/22 04:27 BMI result Body Mass Index 26.2 Const: Other: Constitutional - Awake and Alert, in mild respiratory distress with rates in the mid to upper 20s Eyes -? PERRLA, EOMI Cardiovascular -? S1S2, IRR (rates in the 110s on tele); +JVD; 2+ b/l pitting edema in the LE Respiratory - Diminised sounds as the bases Gastrointestinal -? NT / ND; +BS; No rebound or guarding - No CVA tenderness Extremities - no calf tenderness bilaterally, Musculoskeletal - Normal inspection, normal ROM Skin - Warm/Dry Neurological -? Alert & oriented x3, No focal deficit Psychological - Appropriate affect Objective Data Active Medications Acetaminophen (Acetaminophen 325 Mg Tablet) 650 mg PO Q6H PRN PRN Reason: Pain, Mild (Pain Scale 1-3) Apixaban (Apixaban 5 Mg Tablet) 5 mg PO BID [facility] Last Admin: 04/18/22 20:36 Dose: 5 mg Documented By: ISABEL Dexamethasone Sodium Phosphate (Dexamethasone Sod Phosphate 4 Mg/Ml Vial) 6 mg IVPUSH DAILY [facility] Stop: 04/27/22 09:01 Last Admin: 04/18/22 11:46 Dose: 6 mg Documented By: PABLITOOPEB Digoxin (Digoxin 0.5 Mg/2 Ml Ampul) 0.25 mg IVPUSH Q6H [facility] Stop: 04/19/22 15:46 Digoxin (Digoxin 0.125 Mg Tablet) 0.125 mg PO Q2D [facility] Furosemide (Furosemide 40 Mg/4 Ml Vial) 40 mg IVPUSH BID@0900,1800 [facility]; Protocol Last Admin: 04/18/22 18:07 Dose: 40 mg Documented By: MILA Ondansetron HCl (Ondansetron Hcl 4 Mg/2 Ml Vial) 4 mg IVPUSH Q8H PRN PRN Reason: Nausea and Vomiting Pharmacy Consult (Consult Rx Perform Med Rec) 1 each MISCELLANE ONCE PRN PRN Reason: Consult order Sacubitril/Valsartan (Sacubitril/Valsartan 1 Tab Tablet) 1 tab PO BID [facility]; Protocol Sodium Chloride (0.9 % Sodium Chloride Flush 3 Ml Syringe) 3 ml IVFLUSH QSHIFT [facility] Last Admin: 04/19/22 08:02 Dose: Not Given Documented By: JONATHAN Non-Admin Reason: assessed Labs CBC & Chem 7: 04/19/22 05:54 04/19/22 05:54 Labs: Laboratory Results - last 24 hr 04/19/22 04/19/22 05:54 05:54 MCV 86.3 MCH 28.2 MCHC 32.7 RDW 16.9 H Plt Count 203 MPV 11.8 Absolute Nucleated RBC 0.000 Nucleated RBC % (auto) 0.0 Anion Gap 14 Estim Creat Clear Calc 37.1 Estimated GFR 44 Random Glucose 118 H Calcium 8.1 L Assessment and Plan (1) CHF exacerbation: Status: Acute (2) Atrial fibrillation with RVR: Status: Acute Plan This is an 81 year old female who has not seen a medical provider for >45 years who presented to [facility] [place] after a mechanical fall. She is found to be in acute CHF with rapid a. fib rvr + COVID19 positive. She will be admitted for further work up. 1. Acute (new-onset) HFrEF (both RV and LV systolic function) 1a. Acute respiratory failure with hypoxia Continue IV lasix; i/o; daily weights; low Na diet cardiology on board wean O2 as tolerated possibly tachcardia mediated 2. A. Fib with RVR (new-onset) metoprolol discontinued (per cardiology) digoxin / dig loading 3. COVID-19 decadron oxygen trend biomakers intermittently -- not terribly elevated upon admission 4. Elevated HS trop-I Flat and likely from demand ischemia (A. fib/CHF/COVID) Full COde DVT pptx -- to start Hyun Endorses her daughter, Tammie, as health care proxy. Requires continued hospitalization secondary to on going CHF/respiratory failure requiring IV diuretics / continuous oxygen. Quality Stroke Does the patient have a stroke diagnosis?: No VTE Prior VTE?: No VTE Risk Level:: Medical - moderate - high VTE Device Contraindication: Treatment Not Indicated VTE Drug Contraindication: N/A - Med Ordered
[2022-04-19] MEDS: dexAMETHasone sod phosphate 4 MG/ML VIAL 6 MG IVPUSH (11:42)
[2022-04-19] MEDS: Apixaban 5 MG TABLET PO ×2 (11:43→21:14)
[2022-04-19] MEDS: Sacubitril/Valsartan 24/26 1 TAB TABLET PO ×2 (11:43→21:14)
[2022-04-19] MEDS: Furosemide 40 MG/4 ML VIAL IVPUSH ×2 (11:43→18:46)
--- NOTE | 2022-04-19 12:05 | P.PNCA_ITS ---
Subjective Subjective Date of Service: 04/19/22 Interval history: Still short of breath. Edema little better but still quite edematous. Echocardiography reviewed which showed severe biventricular dysfunction. Physical Exam Vital Signs: Last Vital Signs Temp 98.3 F 04/19/22 04:15 Pulse 97 04/19/22 08:22 Resp 20 04/19/22 08:22 BP 124/82 04/19/22 08:22 Pulse Ox 94 04/19/22 08:22 O2 Del Method 04/19/22 08:22 O2 Flow Rate 2 04/19/22 04:15 Oxygen Flow Rate 2 04/18/22 04:27 BMI result Body Mass Index 26.2 GENERAL APPEARANCE: in no acute distress, pleasant. NECK: no carotid bruit, mild jugular venous distention. SKIN: no suspicious lesions, warm and dry. HEART: no murmurs, irregularly irregular rhythm LUNGS: clear to auscultation bilaterally. ABDOMEN: soft, nontender. EXTREMITIES: 2 to 3+ edema to the knees. PERIPHERAL PULSES: equal. NEUROLOGIC: No gross deficits, AAO X 3 Objective Labs and Meds Result diagrams: 04/19/22 05:54 04/19/22 05:54 Lab results: Laboratory Results - last 24 hr 04/19/22 04/19/22 05:54 05:54 WBC 9.6 RBC 5.49 Hgb 15.5 Hct 47.4 H MCV 86.3 MCH 28.2 MCHC 32.7 RDW 16.9 H Plt Count 203 MPV 11.8 Absolute Nucleated RBC 0.000 Nucleated RBC % (auto) 0.0 Sodium 138 Potassium 4.3 Chloride 103 Carbon Dioxide 25 Anion Gap 14 BUN 20 H Creatinine 1.18 Estim Creat Clear Calc 37.1 Estimated GFR 44 Random Glucose 118 H Calcium 8.1 L Progress Note: A&P Assessment and plan (1) Atrial fibrillation with RVR: Status: Acute (2) CHF exacerbation: Status: Acute Plan 81-year-old female with new diagnosis of atrial fibrillation and cardiomyopathy with EF 10-15% and severe RV dysfunction. She also has COVID-19 infection is being treated for that. High sensitive troponin level is 225 in 251. With sign ificant degree of LV dysfunction I do not think that this is myocarditis due to COVID-19 because I would have expected significantly elevated troponin levels in that situation. Stop the beta-graciela. Would start a digoxin load. Continue IV diuretics. Adding Entresto. Once euvolemic then will add beta-graciela. As she improves she will need a SHANAE cardioversion because the likely etiology for cardiomyopathy is atrial fibrillation. Monitor electrolytes closely. Thank you for allowing me to participate in the care of your patient. Please feel free to contact me if you have any questions. Time Spent With Patient Time: Total time spent is greater than 50% in coordination of care (as documented) at patient's floor/unit and/or counseling patient: Progress Note: Quality Stroke Does the patient have a stroke diagnosis?: No Procedures Date of Service Date of Service: 04/19/22
[2022-04-19] MEDS: Digoxin 0.5 MG/2 ML AMPUL 0.25 MG IVPUSH ×2 (12:36→16:00)
[2022-04-19 13:35] VITALS: BP 126/85; PULSE 96; RESP 16; O2SAT 96
--- NOTE | 2022-04-19 18:10 | PC.NURSE ---
covid precautions maintained. pt's daughter updated throughout the day, informed MD to update pt, per md will call pt's daughter tomorrow. pt requested cough drops, md informed, cough syrup ordered. call goyal within reach, safety and fall precautions maintianed. pt able to repo self. arriaga in place. pt bathed this shift.
[2022-04-19 18:24] VITALS: BP 115/68; PULSE 101; RESP 17; TEMP 36.5; O2SAT 91
[2022-04-19 21:15] VITALS: BP 130/83; PULSE 89; RESP 23; O2SAT 95
[2022-04-20] VITALS (7 sets, daily range): BP systolic 119–140; BP diastolic 73–85; PULSE 73–91; RESP 17–25; TEMP 36.1–37.1; O2SAT 93–95
--- NOTE | 2022-04-20 02:15 | PC.NURSE ---
Patient had 3 beats of non-sustained v tach on tele monitor. Patient awake and alert, no pain noted. Vitals rechecked and stable. Dr Greenfield notified. Will monitor closely.
--- NOTE | 2022-04-20 07:26 | PC.NURSE ---
Assumed care of this pt. at 0700. Report from Megan Galan RN
[2022-04-20 08:44] LABS: Hematocrit 47.5 % (37.0-47.0); Hemoglobin 15.7 g/dl (12.0-16.0); Mean Corpuscular HGB Conc 33.1 g/dl (31.0-35.0); Mean Corpuscular Hemoglobin 28.2 pg (27.0-33.0); Mean Corpuscular Volume 85.4 fL (80.0-98.0); Mean Platelet Volume 11.1 fL (9.4-12.3); Platelet Count 202 X10*3/uL (160-400); Red Blood Count 5.56 X10*6/uL (4.20-5.50); Red Cell Distribution Width 15.9 % (11.0-16.0); White Blood Count 8.1 X10*3/uL (4.8-10.8)
[2022-04-20 09:21] LABS: Procalcitonin 0.36 ng/mL
[2022-04-20 09:22] LABS: Anion Gap 10 (12-20); Blood Urea Nitrogen 24 mg/dL (9-16); C Reactive Protein 3.51 mg/dL (< or = 0.50); Calcium 7.6 mg/dL (8.4-10.2); Carbon Dioxide 33 mmol/L (22-29); Chloride 101 mmol/L (96-108); Creatinine Clr Calc Pharmacy 35.3; Estimated Glomerular Filt Rate 41; Glucose Random 103 mg/dL (60-115); Lactate Dehydrogenase 196 U/L (122-220); Potassium 4.1 mmol/L (3.3-5.1); Sodium 140 mmol/L (135-145)
[2022-04-20 09:23] LABS: Ferritin 128 ng/mL (10-250)
[2022-04-20] MEDS: dexAMETHasone sod phosphate 4 MG/ML VIAL 6 MG IVPUSH (09:32)
[2022-04-20] MEDS: Furosemide 40 MG/4 ML VIAL IVPUSH ×2 (09:32→17:38)
[2022-04-20] MEDS: Sacubitril/Valsartan 24/26 1 TAB TABLET PO ×2 (09:32→22:17)
[2022-04-20] MEDS: 0.9 % Sodium Chloride Flush 3 ML SYRINGE IVFLUSH ×3 (09:32→22:17)
[2022-04-20] MEDS: Apixaban 5 MG TABLET PO ×2 (09:32→22:17)
--- NOTE | 2022-04-20 09:38 | PC.NURSE ---
Pt weaned from 4- 3L O2. tolerating well at this time. O2 sats 95%.
--- NOTE | 2022-04-20 10:16 | HO.PM.IMPN ---
Subjective Subjective Date of Service: 04/20/22 Interval History: seen and examined this AM breathing unchanged denies cp or palp Review of Systems negative except HPI Physical Exam Vital Signs: Vital Signs: Last Vital Signs Temp 97.7 F 04/19/22 18:24 Pulse 86 04/20/22 09:31 Resp 22 H 04/20/22 09:31 BP 131/76 04/20/22 09:31 Pulse Ox 94 04/20/22 09:31 O2 Del Method 04/20/22 09:31 O2 Flow Rate 3 04/20/22 09:31 Oxygen Flow Rate 2 04/18/22 04:27 BMI result Body Mass Index 26.2 Const: Other: Constitutional - Awake and Alert, in mild respiratory distress with rates in the mid to upper 20s Eyes -? PERRLA, EOMI Cardiovascular -? S1S2, IRR (rates in the 110s on tele); +JVD; 2+ b/l pitting edema in the LE Respiratory - Diminised sounds as the bases Gastrointestinal -? NT / ND; +BS; No rebound or guarding - No CVA tenderness Extremities - no calf tenderness bilaterally, Musculoskeletal - Normal inspection, normal ROM Skin - Warm/Dry Neurological -? Alert & oriented x3, No focal deficit Psychological - Appropriate affect Objective Data Active Medications Acetaminophen (Acetaminophen 325 Mg Tablet) 650 mg PO Q6H PRN PRN Reason: Pain, Mild (Pain Scale 1-3) Apixaban (Apixaban 5 Mg Tablet) 5 mg PO BID [facility] Last Admin: 04/20/22 09:32 Dose: 5 mg Documented By: BRODIE Dexamethasone Sodium Phosphate (Dexamethasone Sod Phosphate 4 Mg/Ml Vial) 6 mg IVPUSH DAILY [facility] Stop: 04/27/22 09:01 Last Admin: 04/20/22 09:32 Dose: 6 mg Documented By: BRODIE Digoxin (Digoxin 0.125 Mg Tablet) 0.125 mg PO Q2D [facility] Furosemide (Furosemide 40 Mg/4 Ml Vial) 40 mg IVPUSH BID@0900,1800 [facility]; Protocol Last Admin: 04/20/22 09:32 Dose: 40 mg Documented By: BRODIE Guaifenesin (Guaifenesin 100 Mg/5 Ml Liquid) 5 ml PO Q6H PRN PRN Reason: Cough Ondansetron HCl (Ondansetron Hcl 4 Mg/2 Ml Vial) 4 mg IVPUSH Q8H PRN PRN Reason: Nausea and Vomiting Pharmacy Consult (Consult Rx Perform Med Rec) 1 each MISCELLANE ONCE PRN PRN Reason: Consult order Sacubitril/Valsartan (Sacubitril/Valsartan 1 Tab Tablet) 1 tab PO BID [facility]; Protocol Last Admin: 04/20/22 09:32 Dose: 1 tab Documented By: BRODIE Sodium Chloride (0.9 % Sodium Chloride Flush 3 Ml Syringe) 3 ml IVFLUSH QSHIFT [facility] Last Admin: 04/20/22 09:32 Dose: 3 ml Documented By: BRODIE Labs CBC & Chem 7: 04/20/22 08:27 04/20/22 08:27 Labs: Laboratory Results - last 24 hr 04/20/22 04/20/22 04/20/22 08:27 08:27 08:27 MCV 85.4 MCH 28.2 MCHC 33.1 RDW 15.9 Plt Count 202 MPV 11.1 Absolute Nucleated RBC 0.000 Nucleated RBC % (auto) 0.0 Anion Gap 10 L Estim Creat Clear Calc 35.3 Estimated GFR 41 Random Glucose 103 Calcium 7.6 L D Ferritin 128 Lactate Dehydrogenase 196 C-Reactive Protein 3.51 H Procalcitonin 04/20/22 08:27 MCV MCH MCHC RDW Plt Count MPV Absolute Nucleated RBC Nucleated RBC % (auto) Anion Gap Estim Creat Clear Calc Estimated GFR Random Glucose Calcium Ferritin Lactate Dehydrogenase C-Reactive Protein Procalcitonin 0.36 Microbiology Microbiology Results: Microbiology 04/18/22 00:00 Urine Culture - Preliminary Urine Catheterized - Francisco Catheter Culture in progress. Assessment and Plan (1) Atrial fibrillation with RVR: Status: Acute Plan This is an 81 year old female who has not seen a medical provider for >45 years who presented to [facility] [place] after a mechanical fall. She is found to be in acute CHF with rapid a. fib rvr + COVID19 positive. She will be admitted for further work up. 1. Acute (new-onset) HFrEF (both RV and LV systolic function) 1a. Acute respiratory failure with hypoxia still requiring 3L neg 5.6L balance but still significantly fluid overloaded Continue IV lasix; i/o; daily weights; low Na diet cardiology on board wean O2 as tolerated possibly tachcardia mediated - may need SHANAE cardioversion 2. A. Fib with RVR (new-onset) rates better controlled metoprolol discontinued (per cardiology) dig q2d 3. COVID-19 decadron oxygen trend biomakers intermittently -- not terribly elevated upon admission 4. Elevated HS trop-I Flat and likely from demand ischemia (A. fib/CHF/COVID) Full COde DVT pptx -- to start Hyun Endorses her daughter, Tammie, as health care proxy. D/W daughter Tammie @ Requires continued hospitalization secondary to on going CHF/respiratory failure requiring IV diuretics / continuous oxygen. Quality Stroke Does the patient have a stroke diagnosis?: No VTE Prior VTE?: No VTE Risk Level:: Medical - moderate - high VTE Device Contraindication: Treatment Not Indicated VTE Drug Contraindication: N/A - Med Ordered
[2022-04-20] MEDS: Acetaminophen 325 MG TABLET 650 MG PO (22:19)
[2022-04-21] VITALS (7 sets, daily range): BP systolic 104–145; BP diastolic 73–83; PULSE 56–90; RESP 15–20; TEMP 36.1–37.1; O2SAT 91–94
[2022-04-21] MEDS: Furosemide 40 MG/4 ML VIAL IVPUSH ×2 (08:14→16:57)
[2022-04-21] MEDS: dexAMETHasone sod phosphate 4 MG/ML VIAL 6 MG IVPUSH (08:14)
[2022-04-21] MEDS: Sacubitril/Valsartan 24/26 1 TAB TABLET PO (08:14)
[2022-04-21] MEDS: Apixaban 5 MG TABLET PO ×2 (08:15→21:22)
[2022-04-21] MEDS: 0.9 % Sodium Chloride Flush 3 ML SYRINGE IVFLUSH ×3 (08:15→21:23)
[2022-04-21] MEDS: Acetaminophen 325 MG TABLET 650 MG PO ×2 (08:15→21:30)
[2022-04-21 08:57] LABS: Hematocrit 53.4 % (37.0-47.0); Hemoglobin 17.4 g/dl (12.0-16.0); Mean Corpuscular HGB Conc 32.6 g/dl (31.0-35.0); Mean Corpuscular Hemoglobin 27.9 pg (27.0-33.0); Mean Corpuscular Volume 85.7 fL (80.0-98.0); Mean Platelet Volume 11.4 fL (9.4-12.3); Platelet Count 240 X10*3/uL (160-400); Red Blood Count 6.23 X10*6/uL (4.20-5.50); Red Cell Distribution Width 16.9 % (11.0-16.0)
[2022-04-21 09:17] LABS: B Type Natriuretic Peptide 412 pg/mL (<100)
[2022-04-21 09:19] LABS: Anion Gap 11 (12-20); Blood Urea Nitrogen 24 mg/dL (9-16); Calcium 7.3 mg/dL (8.4-10.2); Carbon Dioxide 35 mmol/L (22-29); Chloride 95 mmol/L (96-108); Creatinine Clr Calc Pharmacy 40.9; Estimated Glomerular Filt Rate 49; Glucose Random 97 mg/dL (60-115); Potassium 3.4 mmol/L (3.3-5.1); Sodium 138 mmol/L (135-145)
--- NOTE | 2022-04-21 09:40 | MHC.CM.PN ---
IMM 04/21/22 Female 81 DX AFIB CHF Covid+ She lives alone. She is independent with ADLs and drives. No PCP, [facility] PCP list has been provided. DP Home with new PCP. vs STR. Patient states that her dtr will provide transportation home. vaxx X 2 PFIZER. a COPY OF THE PATIENTS HCP HAS BEEN REQUESTED.
--- NOTE | 2022-04-21 10:23 | PM.PNCARD ---
Subjective Subjective Date of Service: 04/21/22 Principal diagnosis: CHF, atrial fibrillation. Interval history: Patient is feeling better. Overall negative balance of 8 L. Remains in atrial fibrillation better rate control. She denies any palpitations. She says her breathing is improved. Review of Systems Constitutional: Reports no additional constitutional complaints Cardiovascular: Denies chest pain, Reports leg edema, Denies lightheadedness, Denies Loss of Consciousness and Reports dyspnea on exertion Respiratory: Reports cough and Reports dyspnea on exertion Gastrointestinal: Reports no additional gastrointestinal complaints Genitourinary: Reports no additional female genitourinary complaints Musculoskeletal: Reports no additional musculoskeletal complaints Reports system reviewed and no additional complaints, except as documented Physical Exam Vital Signs: Last Vital Signs Temp 97.4 F 04/21/22 08:57 Pulse 56 04/21/22 08:57 Resp 17 04/21/22 08:57 BP 145/83 H 04/21/22 08:57 Pulse Ox 93 04/21/22 08:57 O2 Del Method 04/21/22 08:57 O2 Flow Rate 3 04/21/22 08:57 Oxygen Flow Rate 2 04/18/22 04:27 BMI result Body Mass Index 26.2 Const General: cooperative, comfortable, no acute distress, alert and awake Nutritional Appearance: overweight Orientation/consciousness: patient oriented x3 Neck Neck: Yes trachea midline, Yes supple and Yes no JVD ( Mild AJR) Resp Effort & Inspection: normal respiratory effort Auscultation: clear to auscultation bilaterally and diminished lung sounds Cardio Rhythm: abnormal rhythm irregularly irregular Heart sounds: S1 normal heart sound present, S2 normal heart sound present, no click, no gallops and no murmurs GI Auscultation: normal bowel sounds Skin General skin exam: no rashes or lesions noted Neuro General: patient oriented x3 and no focal motor deficits Extrem General: No clubbing, No cyanosis and Yes edema Objective Labs and Meds Result diagrams: 04/21/22 08:30 04/21/22 08:30 Lab results: Laboratory Results - last 24 hr 04/21/22 04/21/22 04/21/22 08:30 08:30 08:30 WBC 8.0 RBC 6.23 H Hgb 17.4 H Hct 53.4 H MCV 85.7 MCH 27.9 MCHC 32.6 RDW 16.9 H Plt Count 240 MPV 11.4 Absolute Nucleated RBC 0.000 Nucleated RBC % (auto) 0.0 Sodium 138 Potassium 3.4 Chloride 95 L Carbon Dioxide 35 H Anion Gap 11 L BUN 24 H Creatinine 1.07 Estim Creat Clear Calc 40.9 Estimated GFR 49 Random Glucose 97 Calcium 7.3 L B-Natriuretic Peptide 412 H Progress Note: A&P Assessment and plan (1) CHF exacerbation: Status: Acute Assessment and Plan: decompensated heart failure with severely reduced ejection fraction. Clinically improving. Continue IV diuresis for 1 more day. Please add Coreg 3.125 mg b.i.d. to her regimen for both blood pressure control as well as for rate control and for neurohormonal modulation. Up titrate Entresto therapy. Add spironolactone 12.5 mg to her regimen. Strict intake and output chart needs to be pursued. Continue to follow electrolytes as well as BMP and BNP. Out of bed to chair and consider of if COVID has improved or she can be taken out from isolation physical therapy consult. Heart failure education to be provided. (2) Atrial fibrillation with RVR: Status: Acute Assessment and Plan: Atrial fibrillation with better rate control still running slightly fast heart rate. Add carvedilol as above. Continue digoxin as planned. Continue full oral anticoagulation, currently on Eliquis 5 mg b.i.d.. Continue to monitor renal function. I do not thing at this point time there is a need for acute SHANAE guided cardioversion given that the rate is better controlled. Will continue to follow with you Time Spent With Patient Time: Total time spent is greater than 50% in coordination of care (as documented) at patient's floor/unit and/or counseling patient: Progress Note: Quality Stroke Does the patient have a stroke diagnosis?: No Procedures Date of Service Date of Service: 04/21/22
--- NOTE | 2022-04-21 10:29 | HO.PM.IMPN ---
Subjective Subjective Date of Service: 04/21/22 Interval History: seen and examined this AM breathing easier and less palp feels better today for the first time Review of Systems negative except HPI Physical Exam Vital Signs: Vital Signs: Last Vital Signs Temp 97.4 F 04/21/22 08:57 Pulse 56 04/21/22 08:57 Resp 17 04/21/22 08:57 BP 145/83 H 04/21/22 08:57 Pulse Ox 93 04/21/22 08:57 O2 Del Method 04/21/22 08:57 O2 Flow Rate 3 04/21/22 08:57 Oxygen Flow Rate 2 04/18/22 04:27 BMI result Body Mass Index 26.2 Const: Other: Constitutional - Awake and Alert, in mild respiratory distress with rates in the mid to upper 20s Eyes -? PERRLA, EOMI Cardiovascular -? S1S2, IRR (rates in the 110s on tele); +JVD; 2+ b/l pitting edema in the LE Respiratory - Diminised sounds as the bases Gastrointestinal -? NT / ND; +BS; No rebound or guarding - No CVA tenderness Extremities - no calf tenderness bilaterally, Musculoskeletal - Normal inspection, normal ROM Skin - Warm/Dry Neurological -? Alert & oriented x3, No focal deficit Psychological - Appropriate affect Objective Data Active Medications Acetaminophen (Acetaminophen 325 Mg Tablet) 650 mg PO Q6H PRN PRN Reason: Pain, Mild (Pain Scale 1-3) Last Admin: 04/21/22 08:15 Dose: 650 mg Documented By: SIERRA Apixaban (Apixaban 5 Mg Tablet) 5 mg PO BID [facility] Last Admin: 04/21/22 08:15 Dose: 5 mg Documented By: SIERRA Carvedilol (Carvedilol 3.125 Mg Tablet) 3.125 mg PO BID [facility]; Protocol Dexamethasone Sodium Phosphate (Dexamethasone Sod Phosphate 4 Mg/Ml Vial) 6 mg IVPUSH DAILY [facility] Stop: 04/27/22 09:01 Last Admin: 04/21/22 08:14 Dose: 6 mg Documented By: SIERRA Digoxin (Digoxin 0.125 Mg Tablet) 0.125 mg PO Q2D [facility] Last Admin: 04/20/22 11:01 Dose: Not Given Documented By: YANCY Non-Admin Reason: Previously Administered Furosemide (Furosemide 40 Mg/4 Ml Vial) 40 mg IVPUSH BID@0900,1800 [facility]; Protocol Last Admin: 04/21/22 08:14 Dose: 40 mg Documented By: SIERRA Guaifenesin (Guaifenesin 100 Mg/5 Ml Liquid) 5 ml PO Q6H PRN PRN Reason: Cough Ondansetron HCl (Ondansetron Hcl 4 Mg/2 Ml Vial) 4 mg IVPUSH Q8H PRN PRN Reason: Nausea and Vomiting Pharmacy Consult (Consult Rx Perform Med Rec) 1 each MISCELLANE ONCE PRN PRN Reason: Consult order Sacubitril/Valsartan (Sacubitril/Valsartan 49/51 1 Tab Tablet) 1 tab PO BID [facility]; Protocol Sodium Chloride (0.9 % Sodium Chloride Flush 3 Ml Syringe) 3 ml IVFLUSH QSHIFT [facility] Last Admin: 04/21/22 08:15 Dose: 3 ml Documented By: SIERRA Spironolactone (Spironolactone 25 Mg Tablet) 12.5 mg PO DAILY [facility]; Protocol Labs CBC & Chem 7: 04/21/22 08:30 04/21/22 08:30 Labs: Laboratory Results - last 24 hr 04/21/22 04/21/22 04/21/22 08:30 08:30 08:30 MCV 85.7 MCH 27.9 MCHC 32.6 RDW 16.9 H Plt Count 240 MPV 11.4 Absolute Nucleated RBC 0.000 Nucleated RBC % (auto) 0.0 Anion Gap 11 L Estim Creat Clear Calc 40.9 Estimated GFR 49 Random Glucose 97 Calcium 7.3 L B-Natriuretic Peptide 412 H Microbiology Microbiology Results: Microbiology 04/18/22 00:00 Urine Culture - Final Urine Catheterized - Francisco Catheter Escherichia coli Assessment and Plan (1) Atrial fibrillation with RVR: Status: Acute (2) CHF exacerbation: Status: Acute Plan This is an 81 year old female who has not seen a medical provider for >45 years who presented to [facility] [place] after a mechanical fall. She is found to be in acute CHF with rapid a. fib rvr + COVID19 positive. She will be admitted for further work up. 1. Acute (new-onset) HFrEF (both RV and LV systolic function) 1a. Acute respiratory failure with hypoxia still requiring 3L neg 8.7L balance but still significantly fluid overloaded Continue IV lasix; i/o; daily weights; low Na diet neurohormonals added/changed per cardiology recs 2. A. Fib with RVR (new-onset) rates improved continue dig, add coreg 3. COVID-19 decadron oxygen trend biomakers intermittently -- not terribly elevated upon admission 4. Elevated HS trop-I Flat and likely from demand ischemia (A. fib/CHF/COVID) 5. Weakness PT eval Full COde DVT pptx -- to start Hyun Endorses her daughter, Tammie, as health care proxy. Requires continued hospitalization secondary to on going CHF/respiratory failure requiring IV diuretics / continuous oxygen. Dispo: home with services vs STR - await PT eval Quality Stroke Does the patient have a stroke diagnosis?: No VTE Prior VTE?: No VTE Risk Level:: Medical - moderate - high VTE Device Contraindication: Treatment Not Indicated VTE Drug Contraindication: N/A - Med Ordered
[2022-04-21] MEDS: guaiFENesin 100 MG/5 ML LIQUID PO ×2 (11:45→21:30)
[2022-04-21] MEDS: Spironolactone 25 MG TABLET 12.5 MG PO (11:46)
[2022-04-21] MEDS: carvediloL 3.125 MG TABLET PO ×2 (11:46→21:22)
[2022-04-21] MEDS: Sacubitril/Valsartan 49/51 1 TAB TABLET PO (21:22)
[2022-04-22] VITALS (7 sets, daily range): BP systolic 114–144; BP diastolic 73–90; PULSE 74–83; RESP 16–20; TEMP 36.3–37.1; O2SAT 90–92
[2022-04-22 07:06] LABS: Hematocrit 51.7 % (37.0-47.0); Hemoglobin 17.2 g/dl (12.0-16.0); Mean Corpuscular HGB Conc 33.3 g/dl (31.0-35.0); Mean Corpuscular Hemoglobin 27.9 pg (27.0-33.0); Mean Corpuscular Volume 83.9 fL (80.0-98.0); Mean Platelet Volume 11.5 fL (9.4-12.3); Platelet Count 219 X10*3/uL (160-400); Red Blood Count 6.16 X10*6/uL (4.20-5.50); Red Cell Distribution Width 15.9 % (11.0-16.0); White Blood Count 6.6 X10*3/uL (4.8-10.8)
[2022-04-22 07:39] LABS: Anion Gap 11 (12-20); Blood Urea Nitrogen 24 mg/dL (9-16); Calcium 7.2 mg/dL (8.4-10.2); Carbon Dioxide 34 mmol/L (22-29); Chloride 96 mmol/L (96-108); Creatinine Clr Calc Pharmacy 48.6; Estimated Glomerular Filt Rate 60; Glucose Random 114 mg/dL (60-115); Potassium 3.2 mmol/L (3.3-5.1); Sodium 138 mmol/L (135-145)
[2022-04-22] MEDS: dexAMETHasone sod phosphate 4 MG/ML VIAL 6 MG IVPUSH (09:05)
[2022-04-22] MEDS: Spironolactone 25 MG TABLET 12.5 MG PO (09:06)
[2022-04-22] MEDS: 0.9 % Sodium Chloride Flush 3 ML SYRINGE IVFLUSH ×2 (09:06→16:41)
[2022-04-22] MEDS: Potassium Chloride ER 20 MEQ TAB.ER.PRT 60 MEQ PO (09:06)
[2022-04-22] MEDS: Apixaban 5 MG TABLET PO ×2 (09:07→20:19)
[2022-04-22] MEDS: Sacubitril/Valsartan 49/51 1 TAB TABLET PO ×2 (09:07→20:20)
[2022-04-22] MEDS: Furosemide 40 MG/4 ML VIAL IVPUSH (09:07)
[2022-04-22] MEDS: carvediloL 3.125 MG TABLET PO (09:07)
[2022-04-22] MEDS: Digoxin 0.125 MG TABLET PO (09:09)
[2022-04-22 09:27] LABS: Procalcitonin 0.14 ng/mL
[2022-04-22 10:07] LABS: C Reactive Protein 1.34 mg/dL (< or = 0.50); Lactate Dehydrogenase 210 U/L (122-220)
[2022-04-22 10:28] LABS: Ferritin 161 ng/mL (10-250)
--- NOTE | 2022-04-22 12:23 | PM.PNCARD ---
Subjective Subjective Date of Service: 04/22/22 Principal diagnosis: CHF, atrial fibrillation. Interval history: Shanti has diuresed overall L since hospitalization. Does not appear to be significantly fluid overloaded and BNP down trended nicely. However she remains hypoxic requiring high levels of oxygen still. Tolerating her medications well. No significant arrhythmia, remains in atrial fibrillation with control rate. Review of Systems Constitutional: Reports weakness Eyes: Reports no additional eye complaints Cardiovascular: Denies chest pain, Denies lightheadedness, Denies Loss of Consciousness, Denies palpitations and Reports dyspnea Respiratory: Reports dyspnea Gastrointestinal: Reports no additional gastrointestinal complaints Genitourinary: Reports no additional female genitourinary complaints Musculoskeletal: Reports no additional musculoskeletal complaints Reports system reviewed and no additional complaints, except as documented and Reports weakness Psychiatric: Reports no additional psychiatric complaints Endocrine: Reports no additional endocrine complaints and Denies palpitations Physical Exam Vital Signs: Last Vital Signs Temp 97.8 F 04/22/22 11:44 Pulse 82 04/22/22 11:44 Resp 16 04/22/22 11:44 BP 114/82 04/22/22 11:44 Pulse Ox 90 L 04/22/22 11:44 O2 Del Method 04/22/22 11:44 O2 Flow Rate 3 04/22/22 11:44 Oxygen Flow Rate 2 04/18/22 04:27 BMI result Body Mass Index 26.2 Const General: cooperative, comfortable, alert and awake Nutritional Appearance: overweight Orientation/consciousness: patient oriented x3 Neck Neck: Yes trachea midline, Yes supple and Yes no JVD Resp Effort & Inspection: normal respiratory effort Auscultation: no crackles, no rales and diminished lung sounds Cardio Jugular venous distension: no JVD Rhythm: abnormal rhythm irregularly irregular Heart sounds: S1 normal heart sound present, S2 normal heart sound present, no click and no gallops GI Auscultation: normal bowel sounds Neuro General: patient oriented x3 and no focal motor deficits Objective Labs and Meds Result diagrams: 04/22/22 06:26 04/22/22 06:26 Lab results: Laboratory Results - last 24 hr 04/22/22 04/22/22 04/22/22 06:26 06:26 06:26 WBC 6.6 RBC 6.16 H Hgb 17.2 H Hct 51.7 H MCV 83.9 MCH 27.9 MCHC 33.3 RDW 15.9 Plt Count 219 MPV 11.5 Absolute Nucleated RBC 0.000 Nucleated RBC % (auto) 0.0 Sodium 138 Potassium 3.2 L Chloride 96 Carbon Dioxide 34 H Anion Gap 11 L BUN 24 H Creatinine 0.90 Estim Creat Clear Calc 48.6 Estimated GFR 60 Random Glucose 114 Calcium 7.2 L Ferritin 161 Lactate Dehydrogenase 210 C-Reactive Protein 1.34 H Procalcitonin 0.14 Progress Note: A&P Assessment and plan (1) CHF exacerbation: Status: Acute Assessment and Plan: Admitted with heart failure with reduced ejection fraction excess ablation. Doing well and has negative balance at 10 L. Despite that appears to be hypoxic. Alternative etiology needs to be evaluated. Planning for radiographic investigation with either chest x-ray and noncontrast CT to evaluate for whether she has interstitial involvement with COVID. If she appears to have persistent fluid overload will continue IV diuresis. Please consult us at that point time. Continue heart failure management with increase Coreg to 6.25 mg b.i.d.. Continue Entresto and spironolactone. If no evidence of significant fluid overload by imaging switch to p.o. Lasix. Heart failure education needs to be provided. When Perlita will need ischemic workup. (2) Atrial fibrillation with RVR: Status: Acute Assessment and Plan: Atrial fibrillation better rate control on current digoxin and carvedilol therapy. Continue the same. Continue rate control strategy at this point time. Discussed with the daughter that given that the rate is adequately control at this point time do not need SHANAE guided cardioversion. Will continue rate control and oral anticoagulation. Will follow-up as outpatient. Will sign of the case unless there is evidence of significant fluid overload still present. Please let us know Time Spent With Patient Time: Total time spent is greater than 50% in coordination of care (as documented) at patient's floor/unit and/or counseling patient: Progress Note: Quality Stroke Does the patient have a stroke diagnosis?: No Procedures Date of Service Date of Service: 04/22/22
--- NOTE | 2022-04-22 14:10 | P.PNIM_ITS ---
Subjective Subjective Date of Service: 04/22/22 Interval History: seen and examined this AM feels better in regards to cardiopulm but still remains with o2 requirements Review of Systems negative except HPI Physical Exam Vital Signs: Vital Signs: Last Vital Signs Temp 97.8 F 04/22/22 11:44 Pulse 82 04/22/22 11:44 Resp 16 04/22/22 11:44 BP 114/82 04/22/22 11:44 Pulse Ox 90 L 04/22/22 11:44 O2 Del Method 04/22/22 11:44 O2 Flow Rate 3 04/22/22 11:44 Oxygen Flow Rate 2 04/18/22 04:27 BMI result Body Mass Index 26.2 Const: Other: Constitutional - Awake and Alert, in mild respiratory distress with rates in the mid to upper 20s Eyes -? PERRLA, EOMI Cardiovascular -? S1S2, IRR (rates in the 110s on tele); +JVD; 1+ b/l pitting edema in the LE Respiratory - Diminised sounds as the bases Gastrointestinal -? NT / ND; +BS; No rebound or guarding - No CVA tenderness Extremities - no calf tenderness bilaterally, Musculoskeletal - Normal inspection, normal ROM Skin - Warm/Dry Neurological -? Alert & oriented x3, No focal deficit Psychological - Appropriate affect Objective Data Active Medications Acetaminophen (Acetaminophen 325 Mg Tablet) 650 mg PO Q6H PRN PRN Reason: Pain, Mild (Pain Scale 1-3) Last Admin: 04/21/22 21:30 Dose: 650 mg Documented By: TIM Apixaban (Apixaban 5 Mg Tablet) 5 mg PO BID [facility] Last Admin: 04/22/22 09:07 Dose: 5 mg Documented By: PAT Carvedilol (Carvedilol 3.125 Mg Tablet) 6.25 mg PO BID [facility]; Protocol Dexamethasone Sodium Phosphate (Dexamethasone Sod Phosphate 4 Mg/Ml Vial) 6 mg IVPUSH DAILY [facility] Stop: 04/27/22 09:01 Last Admin: 04/22/22 09:05 Dose: 6 mg Documented By: PAT Digoxin (Digoxin 0.125 Mg Tablet) 0.125 mg PO Q2D [facility] Last Admin: 04/22/22 09:09 Dose: 0.125 mg Documented By: PAT Furosemide (Furosemide 40 Mg Tablet) 40 mg PO BID@0900,1800 [facility]; Protocol Guaifenesin (Guaifenesin 100 Mg/5 Ml Liquid) 5 ml PO Q6H PRN PRN Reason: Cough Last Admin: 04/21/22 21:30 Dose: 5 ml Documented By: TIM Ondansetron HCl (Ondansetron Hcl 4 Mg/2 Ml Vial) 4 mg IVPUSH Q8H PRN PRN Reason: Nausea and Vomiting Pharmacy Consult (Consult Rx Perform Med Rec) 1 each MISCELLANE ONCE PRN PRN Reason: Consult order Sacubitril/Valsartan (Sacubitril/Valsartan 49/51 1 Tab Tablet) 1 tab PO BID [facility]; Protocol Last Admin: 04/22/22 09:07 Dose: 1 tab Documented By: PAT Sodium Chloride (0.9 % Sodium Chloride Flush 3 Ml Syringe) 3 ml IVFLUSH QSHIFT [facility] Last Admin: 04/22/22 09:06 Dose: 3 ml Documented By: PAT Spironolactone (Spironolactone 25 Mg Tablet) 12.5 mg PO DAILY [facility]; Protocol Last Admin: 04/22/22 09:06 Dose: 12.5 mg Documented By: PAT Labs CBC & Chem 7: 04/22/22 06:26 04/22/22 06:26 Labs: Laboratory Results - last 24 hr 04/22/22 04/22/22 04/22/22 06:26 06:26 06:26 MCV 83.9 MCH 27.9 MCHC 33.3 RDW 15.9 Plt Count 219 MPV 11.5 Absolute Nucleated RBC 0.000 Nucleated RBC % (auto) 0.0 Anion Gap 11 L Estim Creat Clear Calc 48.6 Estimated GFR 60 Random Glucose 114 Calcium 7.2 L Ferritin 161 Lactate Dehydrogenase 210 C-Reactive Protein 1.34 H Procalcitonin 0.14 Assessment and Plan (1) Atrial fibrillation with RVR: Status: Acute (2) CHF exacerbation: Status: Acute Plan This is an 81 year old female who has not seen a medical provider for >45 years who presented to [facility] after a mechanical fall. She is found to be in acute CHF with rapid a. fib rvr + COVID19 positive. She will be admitted for further work up. 1. Acute (new-onset) HFrEF (both RV and LV systolic function) 1a. Acute respiratory failure with hypoxia continues to require O2 despite >10L of IVF plan to check CT chest to evaluate for edema vs secondary to COVID changed to oral lasix, but if imaging still shows fluid, will restart IV lasix cardiology input appreciated 2. A. Fib with RVR (new-onset) rates improved continue dig and coreg 3. COVID-19 decadron oxygen trend bio-makers intermittently -- not terribly elevated upon admission and generally down-trending 4. Elevated HS trop-I Flat and likely from demand ischemia (A. fib/CHF/COVID) 5. Weakness PT eval Full COde DVT pptx -- to start Hyun Endorses her daughter, Tammie, as health care proxy. Requires continued hospitalization secondary to on going CHF/respiratory failure requiring IV diuretics / continuous oxygen. Dispo: home with services vs STR - Quality Stroke Does the patient have a stroke diagnosis?: No VTE Prior VTE?: No VTE Risk Level:: Medical - moderate - high VTE Device Contraindication: Treatment Not Indicated VTE Drug Contraindication: N/A - Med Ordered
--- NOTE | 2022-04-22 15:08 | MHC.CM.PN ---
Per Rounds discussion, MD recommends STR. CM attempted to call pt on her cell (COVID +) but she was unavailable. CM spoke with pt's daughter, Tammie, @ [phone] and discussed MD recommendation. Tammie agrees to a SNF search with the goal for finding a [facility] SNF. Referrals have been made and CM will continue to follow.
[2022-04-22] MEDS: Furosemide 40 MG TABLET PO (18:10)
[2022-04-22] MEDS: carvediloL 3.125 MG TABLET 6.25 MG PO (20:20)
[2022-04-23] MEDS: 0.9 % Sodium Chloride Flush 3 ML SYRINGE IVFLUSH ×3 (00:29→17:02)
[2022-04-23 07:44] VITALS: BP 133/91; PULSE 83; RESP 18; TEMP 36.4; O2SAT 93
[2022-04-23] MEDS: dexAMETHasone sod phosphate 4 MG/ML VIAL 6 MG IVPUSH (09:39)
[2022-04-23] MEDS: carvediloL 3.125 MG TABLET 6.25 MG PO ×2 (09:39→20:39)
[2022-04-23] MEDS: Spironolactone 25 MG TABLET 12.5 MG PO (09:39)
[2022-04-23] MEDS: Sacubitril/Valsartan 49/51 1 TAB TABLET PO ×2 (09:39→20:40)
[2022-04-23] MEDS: Furosemide 40 MG TABLET PO ×2 (09:39→17:02)
[2022-04-23 10:34] LABS: Hematocrit 51.7 % (37.0-47.0); Mean Corpuscular HGB Conc 32.9 g/dl (31.0-35.0); Mean Corpuscular Hemoglobin 27.6 pg (27.0-33.0); Mean Corpuscular Volume 83.8 fL (80.0-98.0); Mean Platelet Volume 11.6 fL (9.4-12.3); Platelet Count 221 X10*3/uL (160-400); Red Blood Count 6.17 X10*6/uL (4.20-5.50); Red Cell Distribution Width 15.9 % (11.0-16.0); White Blood Count 9.6 X10*3/uL (4.8-10.8)
[2022-04-23] MEDS: guaiFENesin 100 MG/5 ML LIQUID PO (10:49)
[2022-04-23 10:50] LABS: Anion Gap 12 (12-20); Blood Urea Nitrogen 25 mg/dL (9-16); Calcium 6.8 mg/dL (8.4-10.2); Carbon Dioxide 32 mmol/L (22-29); Chloride 96 mmol/L (96-108); Creatinine Clr Calc Pharmacy 46.1; Estimated Glomerular Filt Rate 56; Glucose Random 135 mg/dL (60-115); Potassium 3.5 mmol/L (3.3-5.1); Sodium 136 mmol/L (135-145)
[2022-04-23 11:01] VITALS: BP 133/91; PULSE 83; O2SAT 93
[2022-04-23 11:08] LABS: Ferritin 205 ng/mL (10-250); TSH reflex Free T4 1.16 uIU/mL (0.32-4.0)
[2022-04-23 11:24] VITALS: BP 124/86; PULSE 79; RESP 20; TEMP 36.7; O2SAT 95
--- NOTE | 2022-04-23 11:46 | MHC.CM.PN ---
Female 81 Covid+ Per MD rounds patient is not ready for discharge. She has developed a pleural effusion. The plan is to hold Eliquis x 2 days. She will have a thorocentesis on Thursday. She will be covid recovered 04/28/22 . DP STR via BLS.
--- NOTE | 2022-04-23 15:16 | HO.PM.IMPN ---
Subjective Subjective Date of Service: 04/23/22 Interval History: seen and examined this AM feels the same -- slowly better, but no significant improvement Review of Systems negative except HPI Physical Exam Vital Signs: Vital Signs: Last Vital Signs Temp 98.1 F 04/23/22 11:24 Pulse 79 04/23/22 11:24 Resp 20 04/23/22 11:24 BP 124/86 04/23/22 11:24 Pulse Ox 95 04/23/22 11:24 O2 Del Method 04/23/22 11:24 O2 Flow Rate 5 04/23/22 11:24 Oxygen Flow Rate 2 04/18/22 04:27 BMI result Body Mass Index 26.2 Const: Other: Constitutional - Awake and Alert, in mild respiratory distress with rates in the mid to upper 20s Eyes -? PERRLA, EOMI Cardiovascular -? S1S2, IRR but controlled; pitting edema b/l Respiratory - Diminised sounds as the bases L >R Gastrointestinal -? NT / ND; +BS; No rebound or guarding - No CVA tenderness Extremities - no calf tenderness bilaterally, Musculoskeletal - Normal inspection, normal ROM Skin - Warm/Dry Neurological -? Alert & oriented x3, No focal deficit Psychological - Appropriate affect Objective Data Active Medications Acetaminophen (Acetaminophen 325 Mg Tablet) 650 mg PO Q6H PRN PRN Reason: Pain, Mild (Pain Scale 1-3) Last Admin: 04/21/22 21:30 Dose: 650 mg Documented By: TIM Apixaban (Apixaban 5 Mg Tablet) 5 mg PO BID [facility] Last Admin: 04/22/22 20:19 Dose: 5 mg Documented By: RADHA Carvedilol (Carvedilol 3.125 Mg Tablet) 6.25 mg PO BID [facility]; Protocol Last Admin: 04/23/22 09:39 Dose: 6.25 mg Documented By: PAT Dexamethasone Sodium Phosphate (Dexamethasone Sod Phosphate 4 Mg/Ml Vial) 6 mg IVPUSH DAILY [facility] Stop: 04/27/22 09:01 Last Admin: 04/23/22 09:39 Dose: 6 mg Documented By: PAT Digoxin (Digoxin 0.125 Mg Tablet) 0.125 mg PO Q2D [facility] Last Admin: 04/22/22 09:09 Dose: 0.125 mg Documented By: PAT Furosemide (Furosemide 40 Mg Tablet) 40 mg PO BID@0900,1800 [facility]; Protocol Last Admin: 04/23/22 09:39 Dose: 40 mg Documented By: PAT Guaifenesin (Guaifenesin 100 Mg/5 Ml Liquid) 5 ml PO Q6H PRN PRN Reason: Cough Last Admin: 04/23/22 10:49 Dose: 5 ml Documented By: PAT Ondansetron HCl (Ondansetron Hcl 4 Mg/2 Ml Vial) 4 mg IVPUSH Q8H PRN PRN Reason: Nausea and Vomiting Pharmacy Consult (Consult Rx Perform Med Rec) 1 each MISCELLANE ONCE PRN PRN Reason: Consult order Sacubitril/Valsartan (Sacubitril/Valsartan 1 Tab Tablet) 1 tab PO BID [facility]; Protocol Last Admin: 04/23/22 09:39 Dose: 1 tab Documented By: PAT Sodium Chloride (0.9 % Sodium Chloride Flush 3 Ml Syringe) 3 ml IVFLUSH QSHIFT [facility] Last Admin: 04/23/22 09:38 Dose: 3 ml Documented By: PAT Spironolactone (Spironolactone 25 Mg Tablet) 12.5 mg PO DAILY [facility]; Protocol Last Admin: 04/23/22 09:39 Dose: 12.5 mg Documented By: PAT Labs CBC & Chem 7: 04/23/22 10:26 04/23/22 10:26 Labs: Laboratory Results - last 24 hr 04/23/22 04/23/22 10:26 10:26 MCV 83.8 MCH 27.6 MCHC 32.9 RDW 15.9 Plt Count 221 MPV 11.6 Absolute Nucleated RBC 0.000 Nucleated RBC % (auto) 0.0 Anion Gap 12 Estim Creat Clear Calc 46.1 Estimated GFR 56 Random Glucose 135 H Calcium 6.8 L Ferritin 205 TSH 1.16 Assessment and Plan (1) CHF exacerbation: Status: Acute Plan This is an 81 year old female who has not seen a medical provider for >45 years who presented to [facility] after a mechanical fall. She is found to be in acute CHF with rapid a. fib rvr + COVID19 positive. She will be admitted for further work up. 1. Acute (new-onset) HFrEF (both RV and LV systolic function) 1a. Acute respiratory failure with hypoxia > neg 10L fluid balance since admission CT chest with large L effusion. Lung parenchyma does not have the typical covid pneumonia infiltrates. Will proceed with therapeutic tap of the large left effusion. d/w this with the patient and her daughter and in agreement to proceed with thoracentesis. Last Eliquis evening of 04/22; per IR RN -- plan for thora tomorrow afternoon cardiology input appreciated 2. A. Fib with RVR (new-onset) rates improved continue dig and coreg 3. COVID-19 decadron oxygen trend bio-makers intermittently -- not terribly elevated upon admission and generally down-trending 4. Elevated HS trop-I Flat and likely from demand ischemia (A. fib/CHF/COVID) 5. Weakness PT eval Full COde DVT pptx -- to start Eliquis Endorses her daughter, Tammie, as health care proxy. Requires continued hospitalization due to persistant hypoxia requiring therapeutic thoracentesis Dispo: home with services vs [facility] - Quality Stroke Does the patient have a stroke diagnosis?: No VTE Prior VTE?: No VTE Risk Level:: Medical - moderate - high VTE Device Contraindication: Treatment Not Indicated VTE Drug Contraindication: N/A - Med Ordered
[2022-04-23 15:49] VITALS: BP 122/79; PULSE 81; RESP 14; TEMP 36.6; O2SAT 95
[2022-04-23 19:03] VITALS: BP 135/81; PULSE 99; RESP 14; TEMP 36.5; O2SAT 90
[2022-04-24] MEDS: 0.9 % Sodium Chloride Flush 3 ML SYRINGE IVFLUSH ×4 (00:43→21:57)
[2022-04-24 03:23] VITALS: BP 163/71; PULSE 69; RESP 16; TEMP 36.3; O2SAT 90
[2022-04-24 07:14] LABS: C Reactive Protein 1.02 mg/dL (< or = 0.50)
[2022-04-24 08:00] VITALS: BP 127/82; PULSE 78; RESP 17; TEMP 36.2; O2SAT 92
--- NOTE | 2022-04-24 09:51 | HO.PM.IMPN ---
Subjective Subjective Date of Service: 04/24/22 Interval History: seen and examined this AM slowly improving no has short of breath with movement Review of Systems negative except HPI Physical Exam Vital Signs: Vital Signs: Last Vital Signs Temp 97.1 F 04/24/22 08:00 Pulse 78 04/24/22 08:00 Resp 17 04/24/22 08:00 BP 127/82 04/24/22 08:00 Pulse Ox 92 04/24/22 08:00 O2 Del Method 04/24/22 08:00 O2 Flow Rate 5 04/24/22 08:00 Oxygen Flow Rate 2 04/18/22 04:27 BMI result Body Mass Index 26.2 Const: Other: Constitutional - Awake and Alert, in mild respiratory distress with rates in the mid to upper 20s Eyes -? PERRLA, EOMI Cardiovascular -? S1S2, IRR but controlled; pitting edema b/l Respiratory - Diminised sounds as the bases L >R Gastrointestinal -? NT / ND; +BS; No rebound or guarding - No CVA tenderness Extremities - no calf tenderness bilaterally, Musculoskeletal - Normal inspection, normal ROM Skin - Warm/Dry Neurological -? Alert & oriented x3, No focal deficit Psychological - Appropriate affect Objective Data Active Medications Acetaminophen (Acetaminophen 325 Mg Tablet) 650 mg PO Q6H PRN PRN Reason: Pain, Mild (Pain Scale 1-3) Last Admin: 04/21/22 21:30 Dose: 650 mg Documented By: TIM Apixaban (Apixaban 5 Mg Tablet) 5 mg PO BID [facility] Last Admin: 04/22/22 20:19 Dose: 5 mg Documented By: RADHA Carvedilol (Carvedilol 3.125 Mg Tablet) 6.25 mg PO BID [facility]; Protocol Last Admin: 04/23/22 20:39 Dose: 6.25 mg Documented By: REECE Dexamethasone Sodium Phosphate (Dexamethasone Sod Phosphate 4 Mg/Ml Vial) 6 mg IVPUSH DAILY [facility] Stop: 04/27/22 09:01 Last Admin: 04/23/22 09:39 Dose: 6 mg Documented By: PAT Digoxin (Digoxin 0.125 Mg Tablet) 0.125 mg PO Q2D [facility] Last Admin: 04/22/22 09:09 Dose: 0.125 mg Documented By: PAT Furosemide (Furosemide 40 Mg Tablet) 40 mg PO BID@0900,1800 [facility]; Protocol Last Admin: 04/23/22 17:02 Dose: 40 mg Documented By: PAT Guaifenesin (Guaifenesin 100 Mg/5 Ml Liquid) 5 ml PO Q6H PRN PRN Reason: Cough Last Admin: 04/23/22 10:49 Dose: 5 ml Documented By: PAT Ondansetron HCl (Ondansetron Hcl 4 Mg/2 Ml Vial) 4 mg IVPUSH Q8H PRN PRN Reason: Nausea and Vomiting Pharmacy Consult (Consult Rx Perform Med Rec) 1 each MISCELLANE ONCE PRN PRN Reason: Consult order Sacubitril/Valsartan (Sacubitril/Valsartan 1 Tab Tablet) 1 tab PO BID [facility]; Protocol Last Admin: 04/23/22 20:40 Dose: 1 tab Documented By: REECE Sodium Chloride (0.9 % Sodium Chloride Flush 3 Ml Syringe) [facility] Last Admin: 04/24/22 00:43 Dose: 3 ml Documented By: YOLANDA Spironolactone (Spironolactone 25 Mg Tablet) 12.5 mg PO DAILY [facility]; Protocol Last Admin: 04/23/22 09:39 Dose: 12.5 mg Documented By: PAT Labs CBC & Chem 7: 04/23/22 10:26 04/23/22 10:26 Labs: Laboratory Results - last 24 hr 04/23/22 04/23/22 04/24/22 10:26 10:26 06:16 MCV 83.8 MCH 27.6 MCHC 32.9 RDW 15.9 Plt Count 221 MPV 11.6 Absolute Nucleated RBC 0.000 Nucleated RBC % (auto) 0.0 Anion Gap 12 Estim Creat Clear Calc 46.1 Estimated GFR 56 Random Glucose 135 H Calcium 6.8 L Ferritin 205 C-Reactive Protein 1.02 H TSH 1.16 Assessment and Plan (1) CHF exacerbation: Status: Acute Plan This is an 81 year old female who has not seen a medical provider for >45 years who presented to [facility] after a mechanical fall. She is found to be in acute CHF with rapid a. fib rvr + COVID19 positive. She will be admitted for further work up. 1. Acute (new-onset) HFrEF (both RV and LV systolic function) 1a. Acute respiratory failure with hypoxia 1b. Large L pleural effusion > neg 10L fluid balance since admission on IV diuretics, now transtioned to PO lasix 40mg BID Plan for therapeutic tap today -- hopefully O2 requirements improve after that 2. A. Fib with RVR (new-onset) rates improved continue dig and coreg 3. COVID-19 decadron oxygen trend bio-makers intermittently -- not terribly elevated upon admission and generally down-trending 4. Elevated HS trop-I Flat and likely from demand ischemia (A. fib/CHF/COVID) 5. Weakness PT eval Full COde DVT pptx -- to start Hyun Endorses her daughter, Tammie, as health care proxy. Requires continued hospitalization due to persistant hypoxia requiring therapeutic thoracentesis Dispo: home with services vs STR d/w daughter Tammie over the phone Quality Stroke Does the patient have a stroke diagnosis?: No VTE Prior VTE?: No VTE Risk Level:: Medical - moderate - high VTE Device Contraindication: Treatment Not Indicated VTE Drug Contraindication: N/A - Med Ordered
[2022-04-24] MEDS: Furosemide 40 MG TABLET PO ×2 (10:03→17:04)
[2022-04-24] MEDS: dexAMETHasone sod phosphate 4 MG/ML VIAL 6 MG IVPUSH (10:03)
[2022-04-24] MEDS: Spironolactone 25 MG TABLET 12.5 MG PO (10:03)
[2022-04-24] MEDS: Sacubitril/Valsartan 49/51 1 TAB TABLET PO ×2 (10:03→21:55)
[2022-04-24] MEDS: carvediloL 3.125 MG TABLET 6.25 MG PO ×2 (10:03→21:55)
[2022-04-24] MEDS: Digoxin 0.125 MG TABLET PO (10:06)
[2022-04-24] MEDS: Acetaminophen 325 MG TABLET 650 MG PO ×2 (10:12→21:55)
[2022-04-24 12:00] VITALS: BP 129/74; PULSE 72; RESP 17; TEMP 36.6; O2SAT 92
[2022-04-24 16:00] VITALS: BP 129/80; PULSE 68; RESP 17; TEMP 36.8; O2SAT 92
[2022-04-24 20:00] VITALS: BP 121/80; PULSE 71; RESP 18; TEMP 36.9; O2SAT 94
[2022-04-24] MEDS: guaiFENesin 100 MG/5 ML LIQUID PO (21:56)
[2022-04-24 22:01] VITALS: BP 157/80; PULSE 77
[2022-04-25] VITALS (9 sets, daily range): BP systolic 131–141; BP diastolic 79–87; PULSE 73–90; RESP 16–19; TEMP 36.1–36.7; O2SAT 90–96
--- NOTE | 2022-04-25 02:09 | PM.EVENT ---
Event Note Date of Service: 04/25/22 Event Note: Patient has increased O2 requirement. Will obtain chest x-ray, BNP, on will give 1 dose of IV Lasix Patient currently NPO pending thoracocentesis
[2022-04-25] MEDS: Furosemide 40 MG/4 ML VIAL IVPUSH (02:53)
[2022-04-25 02:56] LABS: B Type Natriuretic Peptide 454 pg/mL (<100)
[2022-04-25 06:58] LABS: Hematocrit 48.6 % (37.0-47.0); Hemoglobin 16.7 g/dl (12.0-16.0); Mean Corpuscular HGB Conc 34.4 g/dl (31.0-35.0); Mean Corpuscular Hemoglobin 28.4 pg (27.0-33.0); Mean Corpuscular Volume 82.5 fL (80.0-98.0); Mean Platelet Volume 11.2 fL (9.4-12.3); Platelet Count 206 X10*3/uL (160-400); Red Blood Count 5.89 X10*6/uL (4.20-5.50); Red Cell Distribution Width 15.3 % (11.0-16.0); White Blood Count 9.7 X10*3/uL (4.8-10.8)
[2022-04-25 07:26] LABS: Anion Gap 15 (12-20); Blood Urea Nitrogen 31 mg/dL (9-16); Calcium 6.9 mg/dL (8.4-10.2); Carbon Dioxide 31 mmol/L (22-29); Chloride 94 mmol/L (96-108); Creatinine Clr Calc Pharmacy 48.6; Estimated Glomerular Filt Rate 60; Glucose Random 106 mg/dL (60-115); Potassium 3.4 mmol/L (3.3-5.1); Sodium 137 mmol/L (135-145)
[2022-04-25] MEDS: carvediloL 3.125 MG TABLET 6.25 MG PO ×2 (09:49→20:55)
[2022-04-25] MEDS: Spironolactone 25 MG TABLET 12.5 MG PO (09:49)
[2022-04-25] MEDS: Furosemide 40 MG TABLET PO ×2 (09:49→17:14)
[2022-04-25] MEDS: 0.9 % Sodium Chloride Flush 3 ML SYRINGE IVFLUSH ×3 (09:49→20:56)
[2022-04-25] MEDS: dexAMETHasone sod phosphate 4 MG/ML VIAL 6 MG IVPUSH (09:50)
--- NOTE | 2022-04-25 12:04 | P.PNIM_ITS ---
Subjective Subjective Date of Service: 04/25/22 Interval History: seen and examined this AM continues to improve but her O2 requirements continue to worsen Review of Systems negative except HPI Physical Exam Vital Signs: Vital Signs: Last Vital Signs Temp 97.9 F 04/25/22 11:50 Pulse 90 04/25/22 11:50 Resp 19 04/25/22 11:50 BP 133/81 04/25/22 11:50 Pulse Ox 93 04/25/22 11:50 O2 Del Method 04/25/22 11:50 O2 Flow Rate 11 04/25/22 11:50 Oxygen Flow Rate 2 04/18/22 04:27 BMI result Body Mass Index 26.2 Const: Other: Constitutional - Awake and Alert, in mild respiratory distress with rates in the mid to upper 20s Eyes -? PERRLA, EOMI Cardiovascular -? S1S2, IRR but controlled; pitting edema b/l Respiratory - diminished Gastrointestinal -? NT / ND; +BS; No rebound or guarding - No CVA tenderness Extremities - no calf tenderness bilaterally, Musculoskeletal - Normal inspection, normal ROM Skin - Warm/Dry Neurological -? Alert & oriented x3, No focal deficit Psychological - Appropriate affect Objective Data Active Medications Acetaminophen (Acetaminophen 325 Mg Tablet) 650 mg PO Q6H PRN PRN Reason: Pain, Mild (Pain Scale 1-3) Last Admin: 04/24/22 21:55 Dose: 650 mg Documented By: WILLIS Apixaban (Apixaban 5 Mg Tablet) 5 mg PO BID [facility] Last Admin: 04/22/22 20:19 Dose: 5 mg Documented By: RADHA Baricitinib (Baricitinib 2 Mg Tablet) 4 mg PO Q24H [facility] Stop: 05/08/22 10:01 Carvedilol (Carvedilol 3.125 Mg Tablet) 6.25 mg PO BID [facility]; Protocol Last Admin: 04/25/22 09:49 Dose: 6.25 mg Documented By: ENZO Dexamethasone Sodium Phosphate (Dexamethasone Sod Phosphate 4 Mg/Ml Vial) 6 mg IVPUSH DAILY [facility] Stop: 04/27/22 09:01 Last Admin: 04/25/22 09:50 Dose: 6 mg Documented By: ENZO Digoxin (Digoxin 0.125 Mg Tablet) 0.125 mg PO Q2D [facility] Last Admin: 04/24/22 10:06 Dose: 0.125 mg Documented By: BOBO Furosemide (Furosemide 40 Mg Tablet) 40 mg PO BID@0900,1800 [facility]; Protocol Last Admin: 04/25/22 09:49 Dose: 40 mg Documented By: ENZO Guaifenesin (Guaifenesin 100 Mg/5 Ml Liquid) 5 ml PO Q6H PRN PRN Reason: Cough Last Admin: 04/24/22 21:56 Dose: 5 ml Documented By: WILLIS Ondansetron HCl (Ondansetron Hcl 4 Mg/2 Ml Vial) 4 mg IVPUSH Q8H PRN PRN Reason: Nausea and Vomiting Pharmacy Consult (Consult Rx Perform Med Rec) 1 each MISCELLANE ONCE PRN PRN Reason: Consult order Sacubitril/Valsartan (Sacubitril/Valsartan 1 Tab Tablet) 1 tab PO BID [facility]; Protocol Last Admin: 04/24/22 21:55 Dose: 1 tab Documented By: WILLIS Sodium Chloride (0.9 % Sodium Chloride Flush 3 Ml Syringe) 3 ml IVFLUSH QSHIFT [facility] Last Admin: 04/25/22 09:49 Dose: 3 ml Documented By: ENZO Spironolactone (Spironolactone 25 Mg Tablet) 12.5 mg PO DAILY [facility]; Protocol Last Admin: 04/25/22 09:49 Dose: 12.5 mg Documented By: ENZO Labs CBC & Chem 7: 04/25/22 05:50 04/25/22 05:50 Labs: Laboratory Results - last 24 hr 04/25/22 04/25/22 04/25/22 02:25 05:50 05:50 MCV 82.5 MCH 28.4 MCHC 34.4 RDW 15.3 Plt Count 206 MPV 11.2 Absolute Nucleated RBC 0.000 Nucleated RBC % (auto) 0.0 Anion Gap 15 Estim Creat Clear Calc 48.6 Estimated GFR 60 Random Glucose 106 Calcium 6.9 L B-Natriuretic Peptide 454 H Assessment and Plan (1) Atrial fibrillation with RVR: Status: Acute (2) CHF exacerbation: Status: Acute Plan This is an 81 year old female who has not seen a medical provider for >45 years who presented to [facility] [place] after a mechanical fall. She is found to be in acute CHF with rapid a. fib rvr + COVID19 positive. She will be admitted for further work up. 1. Acute respiratory failure with hypoxia Due to multiple issues as below Was tolerating 2-3 L initially, however the last 2 days requirements have increased from 3 L to 5 L and now 11 L this morning. 2. COVID-19 Patient reports that she has received 2 doses of mRNA vaccine but not any boosters. despite her inflammatory biomarkers down trending, her oxygen requirements continued to worsen. Initially her hypoxia was more secondary to fluid overload from CHF but she has diuresed over 10 L indeed there was no evidence of pulmonary edema on imaging. Furthermore her effusions which were read as large on CT imaging several days ago are now minimal. Will check a CTA to rule out PE, although less likely given that she has been on Eliquis. Will start treatment with baricitinib and consult Infectious Disease. 3. Acute (new-onset) HFrEF (both RV and LV systolic function) > neg 10L fluid balance since admission on IV diuretics, now transtioned to PO lasix 40mg BID Plan for therapeutic tap today -- hopefully O2 requirements improve after that 4. A. Fib with RVR (new-onset) rates improved continue dig and coreg 5. Elevated HS trop-I Flat and likely from demand ischemia (A. fib/CHF/COVID) 6. Weakness PT eval Full COde DVT pptx -- to start Eliquis Endorses her daughter, Tammie, as health care proxy. Patient requires continued hospitalization as her oxygen requirements continue to climb. Updated daughter. Quality Stroke Does the patient have a stroke diagnosis?: No VTE Prior VTE?: No VTE Risk Level:: Medical - moderate - high VTE Device Contraindication: Treatment Not Indicated VTE Drug Contraindication: N/A - Med Ordered
[2022-04-25] MEDS: Sacubitril/Valsartan 49/51 1 TAB TABLET PO ×2 (12:17→20:55)
[2022-04-25] MEDS: oxyCODONE HCl Immed Release 5 MG TABLET PO (13:24)
[2022-04-25] MEDS: iohexoL 350 MG/ML 100 ML INFUS..BTL IV (14:02)
--- NOTE | 2022-04-25 14:06 | MHC.CM.PN ---
Female 81 dx Covid+ No dc today. Patient is being monitored for Pleural effussion. DP STR via BLS. Henry is [facility] is following for discharge.
--- NOTE | 2022-04-25 15:38 | W.PM.IDCN ---
History of Present Illness Data of Consult Service Date: 04/25/22 Requesting physician: Lion Quintanilla Primary Care Provider: None Physician HPI Reason for consult: worsening hypoxia She presents with shortness of breath and weakness on 04/18 She also has had COVID exposure and was found to be COVID positive. She received two COVID shots last year but did not get booster. She has atrial fibrillation/CHF and improving pleural effusions. She has oxygen requirements up to 11liters. She has no productive cough or leg pain. Review of Systems Review of Systems: Yes all other systems are reviewed and are negative [facility] Family History Family history: reviewed and not pertinent Surgical History Surgical History No pertinent past surgical history Social History Social History Household Members: None Housing: House Do you presently have visiting nurse or other home services: No Alcohol intake: never Patient Tobacco Use Status: Never used Tobacco e-Cigarette/Vaping Use: Former Use Second Hand Smoke Exposure: No service: No Current occupational status: retired [employer] Allergies Allergy/AdvReac Type Severity Reaction Status Date / Time No Known Allergies Allergy Verified 04/18/22 06:55 Active Medications: Current Medications Acetaminophen (Acetaminophen 325 Mg Tablet) 650 mg PO Q6H PRN PRN Reason: Pain, Mild (Pain Scale 1-3) Last Admin: 04/24/22 21:55 Dose: 650 mg Apixaban (Apixaban 5 Mg Tablet) 5 mg PO BID [facility] Last Admin: 04/22/22 20:19 Dose: 5 mg Baricitinib (Baricitinib 2 Mg Tablet) 4 mg PO Q24H [facility] Stop: 05/08/22 10:01 Last Admin: 04/25/22 12:17 Dose: 4 mg Carvedilol (Carvedilol 3.125 Mg Tablet) 6.25 mg PO BID [facility]; Protocol Last Admin: 04/25/22 09:49 Dose: 6.25 mg Dexamethasone Sodium Phosphate (Dexamethasone Sod Phosphate 4 Mg/Ml Vial) 6 mg IVPUSH DAILY [facility] Stop: 04/27/22 09:01 Last Admin: 04/25/22 09:50 Dose: 6 mg Digoxin (Digoxin 0.125 Mg Tablet) 0.125 mg PO Q2D [facility] Last Admin: 04/24/22 10:06 Dose: 0.125 mg Furosemide (Furosemide 40 Mg Tablet) 40 mg PO BID@0900,1800 [facility]; Protocol Last Admin: 04/25/22 09:49 Dose: 40 mg Guaifenesin (Guaifenesin 100 Mg/5 Ml Liquid) 5 ml PO Q6H PRN PRN Reason: Cough Last Admin: 04/24/22 21:56 Dose: 5 ml Ondansetron HCl (Ondansetron Hcl 4 Mg/2 Ml Vial) 4 mg IVPUSH Q8H PRN PRN Reason: Nausea and Vomiting Oxycodone HCl (Oxycodone Hcl Immed Release 5 Mg Tablet) 5 mg PO Q6H PRN PRN Reason: Pain, Severe (Pain Scale 7-10) Last Admin: 04/25/22 13:24 Dose: 5 mg Pharmacy Consult (Consult Rx Perform Med Rec) 1 each MISCELLANE ONCE PRN PRN Reason: Consult order Sacubitril/Valsartan (Sacubitril/Valsartan 49/51 1 Tab Tablet) 1 tab PO BID [facility]; Protocol Last Admin: 04/25/22 12:17 Dose: 1 tab Sodium Chloride (0.9 % Sodium Chloride Flush 3 Ml Syringe) 3 ml IVFLUSH QSHIFT [facility] Last Admin: 04/25/22 09:49 Dose: 3 ml Spironolactone (Spironolactone 25 Mg Tablet) 12.5 mg PO DAILY [facility]; Protocol Last Admin: 04/25/22 09:49 Dose: 12.5 mg Home Medications Medication Instructions Recorded Confirmed Last Taken Type aspirin 81 mg tablet,delayed 81 mg PO DAILY 04/18/22 04/18/22 Unknown History release vitamin A-vitamin C-vit E-min 1 tab PO DAILY 04/18/22 04/18/22 Unknown History tablet Physical Exam Vital Signs: Vital Signs: Last Vital Signs Temp 97.9 F 04/25/22 12:05 Pulse 90 04/25/22 12:05 Resp 19 04/25/22 12:05 BP 133/81 04/25/22 12:05 Pulse Ox 93 04/25/22 12:05 O2 Del Method 04/25/22 12:05 O2 Flow Rate 11 04/25/22 12:05 Oxygen Flow Rate 2 04/18/22 04:27 BMI result Body Mass Index 26.2 Results Labs CBC & Chem 7: 04/25/22 05:50 04/25/22 05:50 Labs: Short CBC 04/25/22 Range/Units 05:50 WBC 9.7 (4.8-10.8) X10*3/uL Hgb 16.7 H (12.0-16.0) g/dl Hct 48.6 H (37.0-47.0) % Plt Count 206 (160-400) X10*3/uL BMP 04/25/22 05:50 Sodium 137 Potassium 3.4 Chloride 94 L Carbon Dioxide 31 H BUN 31 H Creatinine 0.90 Calcium 6.9 L Microbiology Microbiology Results: Microbiology 04/18/22 00:00 Urine Catheterized - Francisco Catheter Urine Culture - Final Escherichia coli Assessment and Plan (1) Atrial fibrillation with RVR: Status: Acute (2) CHF exacerbation: Status: Acute (3) Hypoxia: Status: Acute (4) Lab test positive for detection of COVID-19 virus: Status: Acute COVID has some reponsibility for worsening hypoxia. Also there is CHF long standing and shortness of breath. She has some elevation inflammatory markers such as CRP but ferritin is unremarkable She is at least day 8,too late for remdesivir to be useful. Also paxlovid not common hospital drug. Plan Would continue steroids for 10 days. Can use baricitinib since within 14 d and inflammatory markers such as CRP are elevated. Oxygen as needed. No antibiotics at this time;
--- NOTE | 2022-04-25 18:03 | P.EN_ITS ---
Event Note Date of Service: 04/26/22
--- NOTE | 2022-04-25 18:03 | PM.EVENT ---
Event Note Date of Service: 04/26/22
[2022-04-25] MEDS: Apixaban 5 MG TABLET PO (20:56)
[2022-04-26 03:44] VITALS: BP 118/68; PULSE 63; RESP 18; TEMP 36.3; O2SAT 99
[2022-04-26 08:00] VITALS: BP 123/68; PULSE 73; RESP 20; TEMP 35.7; O2SAT 90
[2022-04-26] MEDS: 0.9 % Sodium Chloride Flush 3 ML SYRINGE IVFLUSH ×3 (09:06→21:32)
[2022-04-26] MEDS: Sacubitril/Valsartan 49/51 1 TAB TABLET PO ×2 (09:07→21:32)
[2022-04-26] MEDS: Spironolactone 25 MG TABLET 12.5 MG PO (09:07)
[2022-04-26] MEDS: Furosemide 40 MG TABLET PO ×2 (09:07→17:26)
[2022-04-26] MEDS: carvediloL 3.125 MG TABLET 6.25 MG PO ×2 (09:07→21:32)
[2022-04-26] MEDS: Apixaban 5 MG TABLET PO ×2 (09:07→21:32)
[2022-04-26] MEDS: dexAMETHasone sod phosphate 4 MG/ML VIAL 6 MG IVPUSH (09:09)
[2022-04-26] MEDS: Digoxin 0.125 MG TABLET PO (09:10)
[2022-04-26 11:46] VITALS: BP 97/53; PULSE 64; RESP 18; TEMP 36.4; O2SAT 94
--- NOTE | 2022-04-26 14:32 | HO.PM.IMPN ---
Subjective Subjective Date of Service: 04/26/22 Interval History: seen and examined this AM feels the same, no worse breathing status no pain daughter bedside, updates given Review of Systems negative except HPI Physical Exam Vital Signs: Vital Signs: Last Vital Signs Temp 97.6 F 04/26/22 11:46 Pulse 64 04/26/22 11:46 Resp 18 04/26/22 11:46 BP 97/53 L 04/26/22 11:46 Pulse Ox 94 04/26/22 11:46 O2 Del Method 04/26/22 11:46 O2 Flow Rate 12 04/26/22 11:46 Oxygen Flow Rate 2 04/18/22 04:27 BMI result Body Mass Index 26.2 Const: Other: General - no acute distress, appears comfortable Cardiovascular - IRR Lungs - comfortable with no distress, o2 sats low 90s on 11L Abdomen - soft, nontender, no rebound or guarding Extremities - no edema bilaterally Neuro - awake and alert, no focal deficits Objective Data Active Medications Acetaminophen (Acetaminophen 325 Mg Tablet) 650 mg PO Q6H PRN PRN Reason: Pain, Mild (Pain Scale 1-3) Last Admin: 04/24/22 21:55 Dose: 650 mg Documented By: WILLIS Apixaban (Apixaban 5 Mg Tablet) 5 mg PO BID [facility] Last Admin: 04/26/22 09:07 Dose: 5 mg Documented By: PAT Baricitinib (Baricitinib 2 Mg Tablet) 4 mg PO Q24H [facility] Stop: 05/08/22 10:01 Last Admin: 04/26/22 09:06 Dose: 4 mg Documented By: PAT Carvedilol (Carvedilol 3.125 Mg Tablet) 6.25 mg PO BID [facility]; Protocol Last Admin: 04/26/22 09:07 Dose: 6.25 mg Documented By: PAT Dexamethasone Sodium Phosphate (Dexamethasone Sod Phosphate 4 Mg/Ml Vial) 6 mg IVPUSH DAILY [facility] Stop: 04/27/22 09:01 Last Admin: 04/26/22 09:09 Dose: 6 mg Documented By: PAT Digoxin (Digoxin 0.125 Mg Tablet) 0.125 mg PO Q2D [facility] Last Admin: 04/26/22 09:10 Dose: 0.125 mg Documented By: PAT Furosemide (Furosemide 40 Mg Tablet) 40 mg PO BID@0900,1800 [facility]; Protocol Last Admin: 04/26/22 09:07 Dose: 40 mg Documented By: PAT Guaifenesin (Guaifenesin 100 Mg/5 Ml Liquid) 5 ml PO Q6H PRN PRN Reason: Cough Last Admin: 04/24/22 21:56 Dose: 5 ml Documented By: WILLIS Ondansetron HCl (Ondansetron Hcl 4 Mg/2 Ml Vial) 4 mg IVPUSH Q8H PRN PRN Reason: Nausea and Vomiting Oxycodone HCl (Oxycodone Hcl Immed Release 5 Mg Tablet) 5 mg PO Q6H PRN PRN Reason: Pain, Severe (Pain Scale 7-10) Last Admin: 04/25/22 13:24 Dose: 5 mg Documented By: ENZO Pharmacy Consult (Consult Rx Perform Med Rec) 1 each MISCELLANE ONCE PRN PRN Reason: Consult order Sacubitril/Valsartan (Sacubitril/Valsartan 49/51 1 Tab Tablet) 1 tab PO BID [facility]; Protocol Last Admin: 04/26/22 09:07 Dose: 1 tab Documented By: PAT Sodium Chloride (0.9 % Sodium Chloride Flush 3 Ml Syringe) 3 ml IVFLUSH QSHIFT [facility] Last Admin: 04/26/22 09:06 Dose: 3 ml Documented By: PAT Spironolactone (Spironolactone 25 Mg Tablet) 12.5 mg PO DAILY [facility]; Protocol Last Admin: 04/26/22 09:07 Dose: 12.5 mg Documented By: PAT Labs CBC & Chem 7: 04/25/22 05:50 04/25/22 05:50 Assessment and Plan (1) Hypoxia: Status: Acute Plan This is an 81 year old female who has not seen a medical provider for >45 years who presented to [facility] [place] after a mechanical fall. She is found to be in acute CHF with rapid a. fib rvr + COVID19 positive. She will be admitted for further work up. 1. Acute respiratory failure with hypoxia Due to multiple issues as below stable on 11L 2. COVID-19 continue steroids and baricitinib continue O2, wean as tolearted ID input appreciated worsening O2 requirements is concerning. Will check inflammatory biomakers tomorrow. 3. Acute (new-onset) HFrEF (both RV and LV systolic function) > neg 10L fluid balance since admission on IV diuretics, now transtioned to PO lasix 40mg BID continue PO lasix 4. A. Fib with RVR (new-onset) rates improved continue dig and coreg 5. Elevated HS trop-I Flat and likely from demand ischemia (A. fib/CHF/COVID) 6. Weakness PT eval Full COde DVT pptx -- to start Eliquis Endorses her daughter, Tammie, as health care proxy. Patient requires continued hospitalization as her oxygen requirements continue to climb. Updated daughter. Quality Stroke Does the patient have a stroke diagnosis?: No VTE Prior VTE?: No VTE Risk Level:: Medical - moderate - high VTE Device Contraindication: Treatment Not Indicated VTE Drug Contraindication: N/A - Med Ordered
[2022-04-26 15:54] VITALS: BP 116/66; PULSE 64; RESP 18; TEMP 36.4; O2SAT 97
[2022-04-26 20:00] VITALS: BP 121/76; PULSE 74; RESP 18; TEMP 37.1; O2SAT 92
[2022-04-26 23:42] VITALS: BP 114/80; PULSE 63; RESP 18; TEMP 36.6; O2SAT 91
[2022-04-27 04:00] VITALS: BP 143/78; PULSE 76; RESP 20; TEMP 36.8; O2SAT 94
--- NOTE | 2022-04-27 05:44 | PC.NURSE ---
bart d/c'd per completion order at 0500
[2022-04-27 08:00] VITALS: BP 133/68; PULSE 69; RESP 21; TEMP 36.6; O2SAT 93
[2022-04-27 08:25] LABS: Hematocrit 46.2 % (37.0-47.0); Hemoglobin 15.3 g/dl (12.0-16.0); Mean Corpuscular HGB Conc 33.1 g/dl (31.0-35.0); Mean Corpuscular Hemoglobin 27.8 pg (27.0-33.0); Mean Corpuscular Volume 83.8 fL (80.0-98.0); Mean Platelet Volume 11.1 fL (9.4-12.3); Platelet Count 227 X10*3/uL (160-400); Red Blood Count 5.51 X10*6/uL (4.20-5.50); Red Cell Distribution Width 15.1 % (11.0-16.0); White Blood Count 13.8 X10*3/uL (4.8-10.8)
[2022-04-27] MEDS: Apixaban 5 MG TABLET PO ×2 (08:38→21:45)
[2022-04-27] MEDS: 0.9 % Sodium Chloride Flush 3 ML SYRINGE IVFLUSH ×3 (08:38→21:47)
[2022-04-27 08:39] LABS: C Reactive Protein 0.51 mg/dL (< or = 0.50)
[2022-04-27] MEDS: Sacubitril/Valsartan 49/51 1 TAB TABLET PO ×2 (08:39→21:49)
[2022-04-27] MEDS: carvediloL 3.125 MG TABLET 6.25 MG PO (08:39)
[2022-04-27] MEDS: Furosemide 40 MG TABLET PO ×2 (08:40→17:20)
[2022-04-27] MEDS: Spironolactone 25 MG TABLET 12.5 MG PO (08:40)
[2022-04-27] MEDS: dexAMETHasone sod phosphate 4 MG/ML VIAL 6 MG IVPUSH (08:44)
[2022-04-27 08:52] LABS: Anion Gap 12 (12-20); Blood Urea Nitrogen 36 mg/dL (9-16); Calcium 7.5 mg/dL (8.4-10.2); Carbon Dioxide 34 mmol/L (22-29); Chloride 95 mmol/L (96-108); Creatinine Clr Calc Pharmacy 46.1; Estimated Glomerular Filt Rate 56; Glucose Random 93 mg/dL (60-115); Potassium 3.4 mmol/L (3.3-5.1); Sodium 138 mmol/L (135-145)
[2022-04-27 08:59] LABS: Procalcitonin 0.16 ng/mL
--- NOTE | 2022-04-27 09:00 | HO.PM.IMPN ---
Subjective Subjective Date of Service: 04/27/22 Interval History: seen and examined this AM tells me she feels better daily breathing easier no pain Review of Systems negative except HPI Physical Exam Vital Signs: Vital Signs: Last Vital Signs Temp 98.2 F 04/27/22 04:00 Pulse 76 04/27/22 04:00 Resp 20 04/27/22 04:00 BP 143/78 H 04/27/22 04:00 Pulse Ox 94 04/27/22 04:00 O2 Del Method 04/27/22 04:00 O2 Flow Rate 12 04/27/22 04:00 Oxygen Flow Rate 2 04/18/22 04:27 BMI result Body Mass Index 26.2 Const: Other: General - no acute distress, appears comfortable Cardiovascular - IRR Lungs - comfortable with no distress, o2 sats low 90s on 11L Abdomen - soft, nontender, no rebound or guarding Extremities - no edema bilaterally Neuro - awake and alert, no focal deficits Objective Data Active Medications Acetaminophen (Acetaminophen 325 Mg Tablet) 650 mg PO Q6H PRN PRN Reason: Pain, Mild (Pain Scale 1-3) Last Admin: 04/24/22 21:55 Dose: 650 mg Documented By: WILLIS Apixaban (Apixaban 5 Mg Tablet) 5 mg PO BID [facility] Last Admin: 04/27/22 08:38 Dose: 5 mg Documented By: PAT Baricitinib (Baricitinib 2 Mg Tablet) 4 mg PO Q24H [facility] Stop: 05/08/22 10:01 Last Admin: 04/27/22 08:39 Dose: 4 mg Documented By: PAT Carvedilol (Carvedilol 3.125 Mg Tablet) 6.25 mg PO BID [facility]; Protocol Last Admin: 04/27/22 08:39 Dose: 6.25 mg Documented By: PAT Dexamethasone Sodium Phosphate (Dexamethasone Sod Phosphate 4 Mg/Ml Vial) 6 mg IVPUSH DAILY [facility] Stop: 04/27/22 09:01 Last Admin: 04/27/22 08:44 Dose: 6 mg Documented By: PAT Digoxin (Digoxin 0.125 Mg Tablet) 0.125 mg PO Q2D [facility] Last Admin: 04/26/22 09:10 Dose: 0.125 mg Documented By: PAT Furosemide (Furosemide 40 Mg Tablet) 40 mg PO BID@0900,1800 [facility]; Protocol Last Admin: 04/27/22 08:40 Dose: 40 mg Documented By: PAT Guaifenesin (Guaifenesin 100 Mg/5 Ml Liquid) 5 ml PO Q6H PRN PRN Reason: Cough Last Admin: 04/24/22 21:56 Dose: 5 ml Documented By: WILLIS Ondansetron HCl (Ondansetron Hcl 4 Mg/2 Ml Vial) 4 mg IVPUSH Q8H PRN PRN Reason: Nausea and Vomiting Oxycodone HCl (Oxycodone Hcl Immed Release 5 Mg Tablet) 5 mg PO Q6H PRN PRN Reason: Pain, Severe (Pain Scale 7-10) Last Admin: 04/25/22 13:24 Dose: 5 mg Documented By: ENZO Pharmacy Consult (Consult Rx Perform Med Rec) 1 each MISCELLANE ONCE PRN PRN Reason: Consult order Sacubitril/Valsartan (Sacubitril/Valsartan 49/51 1 Tab Tablet) 1 tab PO BID [facility]; Protocol Last Admin: 04/27/22 08:39 Dose: 1 tab Documented By: PAT Sodium Chloride (0.9 % Sodium Chloride Flush 3 Ml Syringe) [facility] Last Admin: 04/27/22 08:38 Dose: 3 ml Documented By: PAT Spironolactone (Spironolactone 25 Mg Tablet) 12.5 mg PO DAILY [facility]; Protocol Last Admin: 04/27/22 08:40 Dose: 12.5 mg Documented By: PAT Labs CBC & Chem 7: 04/27/22 08:14 04/27/22 08:14 Labs: Laboratory Results - last 24 hr 04/27/22 04/27/22 04/27/22 08:14 08:14 08:14 MCV 83.8 MCH 27.8 MCHC 33.1 RDW 15.1 Plt Count 227 MPV 11.1 Absolute Nucleated RBC 0.000 Nucleated RBC % (auto) 0.0 Anion Gap 12 Estim Creat Clear Calc 46.1 Estimated GFR 56 Random Glucose 93 Calcium 7.5 L D C-Reactive Protein 0.51 H Assessment and Plan (1) Hypoxia: Status: Acute Plan This is an 81 year old female who has not seen a medical provider for >45 years who [place] [facility] [place]. She is found to be in acute CHF with rapid a. fib rvr + COVID19 positive. She will be admitted for further work up. 1. Acute respiratory failure with hypoxia Due to multiple issues as below stable on 11-12L 2. COVID-19 continue steroids and baricitinib per protocol continue O2, wean as tolerated ID input appreciated CRP down trending 3. Acute (new-onset) HFrEF (both RV and LV systolic function) > neg 14L fluid balance since admission on IV diuretics, now transtioned to PO lasix 40mg BID continue PO lasix 4. A. Fib with RVR (new-onset) rates improved continue dig and coreg 5. Elevated HS trop-I Flat and likely from demand ischemia (A. fib/CHF/COVID) 6. Weakness PT eval Full COde DVT pptx -- to start Hyun Endorses her daughter, Tammie, as health care proxy. Patient requires continued hospitalization as her oxygen requirements continue to climb. Quality Stroke Does the patient have a stroke diagnosis?: No VTE Prior VTE?: No VTE Risk Level:: Medical - moderate - high VTE Device Contraindication: Treatment Not Indicated VTE Drug Contraindication: N/A - Med Ordered
[2022-04-27 12:00] VITALS: BP 109/68; PULSE 62; RESP 19; TEMP 36.5; O2SAT 91
[2022-04-27 16:00] VITALS: BP 110/65; PULSE 71; RESP 18; TEMP 36.6; O2SAT 92
[2022-04-27 20:00] VITALS: BP 128/69; PULSE 61; RESP 18; TEMP 37.2; O2SAT 95
[2022-04-27 23:41] VITALS: BP 123/69; PULSE 53; RESP 16; O2SAT 95
[2022-04-28 04:00] VITALS: BP 124/62; PULSE 113; RESP 16; TEMP 36.3; O2SAT 96
[2022-04-28 08:00] VITALS: BP 138/71; PULSE 55; RESP 16; TEMP 36.6; O2SAT 95
[2022-04-28] MEDS: 0.9 % Sodium Chloride Flush 3 ML SYRINGE IVFLUSH ×3 (09:33→20:11)
[2022-04-28] MEDS: Apixaban 5 MG TABLET PO ×2 (09:34→20:11)
[2022-04-28] MEDS: Spironolactone 25 MG TABLET 12.5 MG PO (09:34)
[2022-04-28] MEDS: Sacubitril/Valsartan 49/51 1 TAB TABLET PO ×2 (09:34→20:10)
[2022-04-28] MEDS: Furosemide 40 MG TABLET PO ×2 (09:34→18:14)
--- NOTE | 2022-04-28 11:17 | HO.PM.IMPN ---
Subjective Subjective Date of Service: 04/28/22 Interval History: seen and examined this AM tells me she feels better daily tell me she slipped and fell on her knees in the bathroom yesterday -- denies any head trauma, knee pain, hip pain Review of Systems negative except HPI Physical Exam Vital Signs: Vital Signs: Last Vital Signs Temp 97.9 F 04/28/22 08:00 Pulse 55 04/28/22 08:00 Resp 16 04/28/22 08:00 BP 138/71 04/28/22 08:00 Pulse Ox 95 04/28/22 08:00 O2 Del Method 04/28/22 08:00 O2 Flow Rate 12 04/28/22 08:00 Oxygen Flow Rate 2 04/18/22 04:27 BMI result Body Mass Index 26.2 Const: Other: General - no acute distress, appears comfortable Cardiovascular - IRR Lungs - comfortable with no distress, o2 sats low 90s on 11L Abdomen - soft, nontender, no rebound or guarding Extremities - ROM b/l knee/hips wnl; no effusions appreciated, no signs of traumatic injury Neuro - awake and alert, no focal deficits Objective Data Active Medications Acetaminophen (Acetaminophen 325 Mg Tablet) 650 mg PO Q6H PRN PRN Reason: Pain, Mild (Pain Scale 1-3) Last Admin: 04/24/22 21:55 Dose: 650 mg Documented By: WILLIS Apixaban (Apixaban 5 Mg Tablet) 5 mg PO BID [facility] Last Admin: 04/28/22 09:34 Dose: 5 mg Documented By: ENZO Baricitinib (Baricitinib 2 Mg Tablet) 4 mg PO Q24H [facility] Stop: 05/08/22 10:01 Last Admin: 04/28/22 09:34 Dose: 4 mg Documented By: ENZO Carvedilol (Carvedilol 3.125 Mg Tablet) 6.25 mg PO BID [facility]; Protocol Last Admin: 04/28/22 09:45 Dose: Not Given Documented By: ENZO Non-Admin Reason: Decreased Heart Rate Digoxin (Digoxin 0.125 Mg Tablet) 0.125 mg PO Q2D [facility] Last Admin: 04/28/22 10:15 Dose: Not Given Documented By: ENZO Non-Admin Reason: Decreased Heart Rate Furosemide (Furosemide 40 Mg Tablet) 40 mg PO BID@0900,1800 [facility]; Protocol Last Admin: 04/28/22 09:34 Dose: 40 mg Documented By: ENZO Guaifenesin (Guaifenesin 100 Mg/5 Ml Liquid) 5 ml PO Q6H PRN PRN Reason: Cough Last Admin: 04/24/22 21:56 Dose: 5 ml Documented By: WILLIS Ondansetron HCl (Ondansetron Hcl 4 Mg/2 Ml Vial) 4 mg IVPUSH Q8H PRN PRN Reason: Nausea and Vomiting Oxycodone HCl (Oxycodone Hcl Immed Release 5 Mg Tablet) 5 mg PO Q6H PRN PRN Reason: Pain, Severe (Pain Scale 7-10) Last Admin: 04/25/22 13:24 Dose: 5 mg Documented By: ENZO Pharmacy Consult (Consult Rx Perform Med Rec) 1 each MISCELLANE ONCE PRN PRN Reason: Consult order Sacubitril/Valsartan (Sacubitril/Valsartan 49/51 1 Tab Tablet) 1 tab PO BID [facility]; Protocol Last Admin: 04/28/22 09:34 Dose: 1 tab Documented By: ENZO Sodium Chloride (0.9 % Sodium Chloride Flush 3 Ml Syringe) [facility] Last Admin: 04/28/22 09:33 Dose: 3 ml Documented By: ENZO Spironolactone (Spironolactone 25 Mg Tablet) 12.5 mg PO DAILY [facility]; Protocol Last Admin: 04/28/22 09:34 Dose: 12.5 mg Documented By: ENZO Labs CBC & Chem 7: 04/27/22 08:14 04/27/22 08:14 Assessment and Plan (1) Hypoxia: Status: Acute Plan This is an 81 year old female who has not seen a medical provider for >45 years who [place] [facility] [place]. She is found to be in acute CHF with rapid a. fib rvr + COVID19 positive. She will be admitted for further work up. 1. Acute respiratory failure with hypoxia Due to multiple issues as below wean to 10L this AM and see how she does 2. COVID-19 continue steroids and baricitinib per protocol continue O2, wean as tolerated ID input appreciated CRP down trending check labs q48 hours or sooner if clinically indicated leukocytosis likely due to steroids 3. Acute (new-onset) HFrEF (both RV and LV systolic function) > neg 14L fluid balance since admission on IV diuretics, now transtioned to PO lasix 40mg BID continue PO lasix 4. A. Fib with RVR (new-onset) rates improved tele shows a few episodes of sinus pauses (less than 3 secs each time and typically during sleep) continue dig and coreg -- held this AM, but okay to resume at next scheduled dose with current holding parameters 5. Elevated HS trop-I Flat and likely from demand ischemia (A. fib/CHF/COVID) 6. Weakness 6a. Hospital Fall PT eval no physical evidence of injury from the fall, monitor closely Full COde DVT pptx -- to start Hyun Endorses her daughter, Tammie, as health care proxy. Patient requires continued hospitalization as her oxygen requirements continue to remain significantly elevated. Quality Stroke Does the patient have a stroke diagnosis?: No VTE Prior VTE?: No VTE Risk Level:: Medical - moderate - high VTE Device Contraindication: Treatment Not Indicated VTE Drug Contraindication: N/A - Med Ordered
[2022-04-28 11:55] VITALS: BP 130/68; PULSE 64; RESP 20; TEMP 36.5; O2SAT 93
[2022-04-28 12:39] VITALS: BP 130/68; PULSE 64; O2SAT 93
[2022-04-28 16:00] VITALS: BP 119/58; PULSE 58; RESP 16; TEMP 36.2; O2SAT 92
[2022-04-28 20:00] VITALS: BP 138/73; PULSE 54; RESP 18; TEMP 36.5; O2SAT 92
[2022-04-29] VITALS (7 sets, daily range): BP systolic 112–137; BP diastolic 57–86; PULSE 60–71; RESP 16–19; TEMP 36.1–36.8; O2SAT 93–99
[2022-04-29] MEDS: Apixaban 5 MG TABLET PO ×2 (08:56→21:53)
[2022-04-29] MEDS: Sacubitril/Valsartan 49/51 1 TAB TABLET PO ×2 (08:56→21:53)
[2022-04-29] MEDS: Furosemide 40 MG TABLET PO (08:56)
[2022-04-29] MEDS: Spironolactone 25 MG TABLET 12.5 MG PO (08:56)
[2022-04-29 09:00] LABS: Hematocrit 47.8 % (37.0-47.0); Hemoglobin 15.5 g/dl (12.0-16.0); Mean Corpuscular HGB Conc 32.4 g/dl (31.0-35.0); Mean Corpuscular Hemoglobin 27.8 pg (27.0-33.0); Mean Corpuscular Volume 85.8 fL (80.0-98.0); Mean Platelet Volume 11.1 fL (9.4-12.3); Platelet Count 286 X10*3/uL (160-400); Red Blood Count 5.57 X10*6/uL (4.20-5.50); Red Cell Distribution Width 15.3 % (11.0-16.0); White Blood Count 16.1 X10*3/uL (4.8-10.8)
[2022-04-29 09:17] LABS: C Reactive Protein 0.69 mg/dL (< or = 0.50)
[2022-04-29 09:18] LABS: Anion Gap 11 (12-20); Blood Urea Nitrogen 38 mg/dL (9-16); Calcium 7.6 mg/dL (8.4-10.2); Carbon Dioxide 37 mmol/L (22-29); Chloride 94 mmol/L (96-108); Creatinine Clr Calc Pharmacy 38.7; Estimated Glomerular Filt Rate 46; Glucose Random 72 mg/dL (60-115); Potassium 3.6 mmol/L (3.3-5.1); Sodium 138 mmol/L (135-145)
[2022-04-29] MEDS: 0.9 % Sodium Chloride Flush 3 ML SYRINGE IVFLUSH ×3 (09:20→21:53)
--- NOTE | 2022-04-29 10:03 | HO.PM.IMPN ---
Subjective Subjective Date of Service: 04/29/22 Interval History: seen and examined this AM tells me she feels better daily tell me she slipped and fell on her knees in the bathroom yesterday -- denies any head trauma, knee pain, hip pain Review of Systems negative except HPI Physical Exam Vital Signs: Vital Signs: Last Vital Signs Temp 96.9 F 04/29/22 07:34 Pulse 71 04/29/22 07:34 Resp 18 04/29/22 07:34 BP 115/68 04/29/22 07:34 Pulse Ox 94 04/29/22 07:34 O2 Del Method 04/29/22 07:34 O2 Flow Rate 10 04/29/22 07:34 Oxygen Flow Rate 2 04/18/22 04:27 BMI result Body Mass Index 26.2 Const: Other: General - no acute distress, appears comfortable Cardiovascular - IRR Lungs - no distress, saturations in the mid 90s on 8L today Abdomen - soft, nontender, no rebound or guarding Extremities - edema singificaintly improved Neuro - awake and alert, no focal deficits Objective Data Active Medications Acetaminophen (Acetaminophen 325 Mg Tablet) 650 mg PO Q6H PRN PRN Reason: Pain, Mild (Pain Scale 1-3) Last Admin: 04/24/22 21:55 Dose: 650 mg Documented By: WILLIS Apixaban (Apixaban 5 Mg Tablet) 5 mg PO BID [facility] Last Admin: 04/29/22 08:56 Dose: 5 mg Documented By: ENZO Baricitinib (Baricitinib 2 Mg Tablet) 4 mg PO Q24H [facility] Stop: 05/08/22 10:01 Last Admin: 04/29/22 08:57 Dose: 4 mg Documented By: ENZO Carvedilol (Carvedilol 3.125 Mg Tablet) 6.25 mg PO BID [facility]; Protocol Last Admin: 04/29/22 08:57 Dose: Not Given Documented By: ENZO Non-Admin Reason: Decreased Heart Rate Digoxin (Digoxin 0.125 Mg Tablet) 0.125 mg PO Q2D [facility] Last Admin: 04/28/22 10:15 Dose: Not Given Documented By: ENZO Non-Admin Reason: Decreased Heart Rate Furosemide (Furosemide 40 Mg Tablet) 40 mg PO BID@0900,1800 [facility]; Protocol Last Admin: 04/29/22 08:56 Dose: 40 mg Documented By: ENZO Guaifenesin (Guaifenesin 100 Mg/5 Ml Liquid) 5 ml PO Q6H PRN PRN Reason: Cough Last Admin: 04/24/22 21:56 Dose: 5 ml Documented By: WILLIS Ondansetron HCl (Ondansetron Hcl 4 Mg/2 Ml Vial) 4 mg IVPUSH Q8H PRN PRN Reason: Nausea and Vomiting Oxycodone HCl (Oxycodone Hcl Immed Release 5 Mg Tablet) 5 mg PO Q6H PRN PRN Reason: Pain, Severe (Pain Scale 7-10) Last Admin: 04/25/22 13:24 Dose: 5 mg Documented By: ENZO Pharmacy Consult (Consult Rx Perform Med Rec) 1 each MISCELLANE ONCE PRN PRN Reason: Consult order Sacubitril/Valsartan (Sacubitril/Valsartan 49/51 1 Tab Tablet) 1 tab PO BID [facility]; Protocol Last Admin: 04/29/22 08:56 Dose: 1 tab Documented By: ENZO Sodium Chloride (0.9 % Sodium Chloride Flush 3 Ml Syringe) 3 ml IVFLUSH QSHIFT [facility] Last Admin: 04/29/22 09:20 Dose: 3 ml Documented By: DOMENICO Spironolactone (Spironolactone 25 Mg Tablet) 12.5 mg PO DAILY [facility]; Protocol Last Admin: 04/29/22 08:56 Dose: 12.5 mg Documented By: ENZO Comments: Labs CBC & Chem 7: 04/29/22 08:23 04/29/22 08:23 Labs: Laboratory Results - last 24 hr 04/29/22 04/29/22 04/29/22 08:23 08:23 08:23 MCV 85.8 MCH 27.8 MCHC 32.4 RDW 15.3 Plt Count 286 D MPV 11.1 Absolute Nucleated RBC 0.000 Nucleated RBC % (auto) 0.0 Anion Gap 11 L Estim Creat Clear Calc 38.7 Estimated GFR 46 Random Glucose 72 Calcium 7.6 L C-Reactive Protein 0.69 H Assessment and Plan (1) Hypoxia: Status: Acute Plan This is an 81 year old female who has not seen a medical provider for >45 years who presented [place] [facility] [place]. She is found to be in acute CHF with rapid a. fib rvr + COVID19 positive. She will be admitted for further work up. 1. Acute respiratory failure with hypoxia Due to multiple issues as below weaned to 8L this AM 2. COVID-19 continue steroids and baricitinib per protocol continue O2, wean as tolerated ID input appreciated CRP down trending check labs q48 hours or sooner if clinically indicated leukocytosis likely due to steroids 3. Acute (new-onset) HFrEF (both RV and LV systolic function) > neg 14L fluid balance since admission on IV diuretics, now transtioned to PO lasix 40mg BID SCr slightly increased today and bicarb up as well -- will give a day or two diuretic holiday 4. A. Fib with RVR (new-onset) rates improved tele shows a few episodes of sinus pauses (less than 3 secs each time and typically during sleep) cardiology f/u today given episodes of pauses and bradycardia -- to hold coreg/dig today 5. Elevated HS trop-I Flat and likely from demand ischemia (A. fib/CHF/COVID) 6. Weakness 6a. Hospital Fall PT eval no physical evidence of injury from the fall, monitor closely (CT head/pelvis negative) Full COde DVT pptx -- to start Hyun Endorses her daughter, Tammie, as health care proxy. Patient requires continued hospitalization as her oxygen requirements continue to remain significantly elevated. Quality Stroke Does the patient have a stroke diagnosis?: No VTE Prior VTE?: No VTE Risk Level:: Medical - moderate - high VTE Device Contraindication: Treatment Not Indicated VTE Drug Contraindication: N/A - Med Ordered
--- NOTE | 2022-04-29 14:35 | PM.PNCARD ---
Subjective Subjective Date of Service: 04/29/22 Principal diagnosis: CHF, atrial fibrillation. Physical Exam Vital Signs: Last Vital Signs Temp 97.4 F 04/29/22 11:24 Pulse 60 04/29/22 11:24 Resp 18 04/29/22 11:24 BP 117/57 L 04/29/22 11:24 Pulse Ox 93 04/29/22 11:24 O2 Del Method 04/29/22 11:24 O2 Flow Rate 10 04/29/22 11:24 Oxygen Flow Rate 2 04/18/22 04:27 BMI result Body Mass Index 26.2 Objective Labs and Meds Result diagrams: 04/29/22 08:23 04/29/22 08:23 Lab results: Laboratory Results - last 24 hr 04/29/22 04/29/22 04/29/22 08:23 08:23 08:23 WBC 16.1 H RBC 5.57 H Hgb 15.5 Hct 47.8 H MCV 85.8 MCH 27.8 MCHC 32.4 RDW 15.3 Plt Count 286 D MPV 11.1 Absolute Nucleated RBC 0.000 Nucleated RBC % (auto) 0.0 Sodium 138 Potassium 3.6 Chloride 94 L Carbon Dioxide 37 H Anion Gap 11 L BUN 38 H Creatinine 1.13 Estim Creat Clear Calc 38.7 Estimated GFR 46 Random Glucose 72 Calcium 7.6 L C-Reactive Protein 0.69 H Imaging Radiologist's impression: Impressions Pelvis X-Ray 04/28/22 16:00 IMPRESSION: No acute abnormality. Head CT 04/28/22 19:56 IMPRESSION: No acute intracranial pathology. Progress Note: A&P Time Spent With Patient Time: Total time spent is greater than 50% in coordination of care (as documented) at patient's floor/unit and/or counseling patient: Progress Note: Quality Stroke Does the patient have a stroke diagnosis?: No
--- NOTE | 2022-04-29 15:38 | MHC.CM.PN ---
EMR REVIEWED, PT REMAINS ON NC AN DOCNTINUES TO RECEIVE COVID 19 DIRECTED TX WELL NEW ONSET AFIB W/RVR, NO PLAN FOR D/C TODAY, CM WILL CONT TO FOLLOW D/C NEEDS.
[2022-04-30 04:00] VITALS: BP 124/60; PULSE 69; RESP 20; TEMP 35.9; O2SAT 95
[2022-04-30 07:31] VITALS: BP 113/56; PULSE 64; RESP 64; TEMP 36.6; O2SAT 96
[2022-04-30 07:34] LABS: Anion Gap 8 (12-20); Blood Urea Nitrogen 35 mg/dL (9-16); Calcium 7.2 mg/dL (8.4-10.2); Carbon Dioxide 34 mmol/L (22-29); Chloride 99 mmol/L (96-108); Creatinine Clr Calc Pharmacy 47.5; Estimated Glomerular Filt Rate 58; Glucose Random 69 mg/dL (60-115); Potassium 3.3 mmol/L (3.3-5.1); Sodium 138 mmol/L (135-145)
[2022-04-30] MEDS: Apixaban 5 MG TABLET PO ×2 (08:27→21:12)
[2022-04-30] MEDS: carvediloL 3.125 MG TABLET 6.25 MG PO (08:27)
[2022-04-30] MEDS: Sacubitril/Valsartan 49/51 1 TAB TABLET PO ×2 (08:28→21:12)
[2022-04-30] MEDS: Spironolactone 25 MG TABLET 12.5 MG PO (08:28)
[2022-04-30] MEDS: 0.9 % Sodium Chloride Flush 3 ML SYRINGE IVFLUSH ×3 (08:29→21:12)
[2022-04-30] MEDS: Digoxin 0.125 MG TABLET PO (10:07)
[2022-04-30 12:00] VITALS: BP 116/60; PULSE 58; RESP 18; TEMP 36.4; O2SAT 97
--- NOTE | 2022-04-30 15:35 | P.PNIM_ITS ---
Subjective Subjective Date of Service: 04/30/22 Interval History: the patient was seen and evaluated this morning Laying in bed, feels improvement overall Oxygen has been weaned down over last few days Denies any fever, chills or shortness of breath No reported other overnight events. Systemic review: No fever, chills or weakness No chest pain, palpitation No shortness of breath or coughing No abdominal pain, nausea or vomiting No urinary symptoms No any rash or wounds Physical Exam Vital Signs: Vital Signs: Last Vital Signs Temp 97.6 F 04/30/22 12:00 Pulse 58 04/30/22 12:00 Resp 18 04/30/22 12:00 BP 116/60 04/30/22 12:00 Pulse Ox 97 04/30/22 12:00 O2 Del Method 04/30/22 12:00 O2 Flow Rate 6 04/30/22 12:00 Oxygen Flow Rate 2 04/18/22 04:27 BMI result Body Mass Index 26.2 Const: Other: General - no acute distress, appears comfortable Cardiovascular - IRR Lungs - no distress, saturations in the mid 90s on 6L today Abdomen - soft, nontender, no rebound or guarding Extremities - edema singificaintly improved Neuro - awake and alert, no focal deficits Objective Data Active Medications Acetaminophen (Acetaminophen 325 Mg Tablet) 650 mg PO Q6H PRN PRN Reason: Pain, Mild (Pain Scale 1-3) Last Admin: 04/24/22 21:55 Dose: 650 mg Documented By: WILLIS Apixaban (Apixaban 5 Mg Tablet) 5 mg PO BID [facility] Last Admin: 04/30/22 08:27 Dose: 5 mg Documented By: HERBERTH Baricitinib (Baricitinib 2 Mg Tablet) 4 mg PO Q24H [facility] Stop: 05/08/22 10:01 Last Admin: 04/30/22 08:28 Dose: 4 mg Documented By: HERBERTH Carvedilol (Carvedilol 3.125 Mg Tablet) 6.25 mg PO BID [facility]; Protocol Last Admin: 04/30/22 08:27 Dose: 6.25 mg Documented By: HERBERTH Digoxin (Digoxin 0.125 Mg Tablet) 0.125 mg PO Q2D [facility] Last Admin: 04/30/22 10:07 Dose: 0.125 mg Documented By: HERBERTH Guaifenesin (Guaifenesin 100 Mg/5 Ml Liquid) 5 ml PO Q6H PRN PRN Reason: Cough Last Admin: 04/24/22 21:56 Dose: 5 ml Documented By: WILLIS Ondansetron HCl (Ondansetron Hcl 4 Mg/2 Ml Vial) 4 mg IVPUSH Q8H PRN PRN Reason: Nausea and Vomiting Pharmacy Consult (Consult Rx Perform Med Rec) 1 each MISCELLANE ONCE PRN PRN Reason: Consult order Sacubitril/Valsartan (Sacubitril/Valsartan 49/51 1 Tab Tablet) 1 tab PO BID [facility]; Protocol Last Admin: 04/30/22 08:28 Dose: 1 tab Documented By: HERBERTH Sodium Chloride (0.9 % Sodium Chloride Flush 3 Ml Syringe) 3 ml IVFLUSH QSHIFT [facility] Last Admin: 04/30/22 08:29 Dose: 3 ml Documented By: HERBERTH Spironolactone (Spironolactone 25 Mg Tablet) 12.5 mg PO DAILY [facility]; Protocol Last Admin: 04/30/22 08:28 Dose: 12.5 mg Documented By: HERBERTH Labs CBC & Chem 7: 04/29/22 08:23 04/30/22 06:36 Labs: Laboratory Results - last 24 hr 04/30/22 06:36 Anion Gap 8 L Estim Creat Clear Calc 47.5 Estimated GFR 58 Random Glucose 69 Calcium 7.2 L Assessment and Plan (1) Atrial fibrillation with RVR: Status: Acute (2) CHF exacerbation: Status: Acute (3) Hypoxia: Status: Acute (4) Acute respiratory failure with hypoxia: Status: Acute Plan This is an 81 year old female who has not seen a medical provider for >45 years who presented to [facility] after a mechanical fall. She is found to be in acute CHF with rapid a. fib rvr + COVID19 positive. She will be admitted for further work up. Acute respiratory failure with hypoxia Due to multiple issues as below weaned to 6L this AM COVID-19 continue steroids and baricitinib per protocol continue O2, wean as tolerated ID input appreciated CRP down trending check labs q48 hours or sooner if clinically indicated leukocytosis likely due to steroids Acute (new-onset) HFrEF (both RV and LV systolic function) > neg 14L fluid balance since admission on IV diuretics, now transtioned to PO lasix 40mg BID SCr slightly increased today and bicarb up as well -- will give a day or two diuretic holiday A. Fib with RVR (new-onset) rates improved tele shows a few episodes of sinus pauses (less than 3 secs each time and typically during sleep) cardiology f/u today given episodes of pauses and bradycardia -- to hold coreg/dig today Elevated HS trop-I Flat and likely from demand ischemia (A. fib/CHF/COVID) Weakness Hospital Fall PT eval no physical evidence of injury from the fall, monitor closely (CT head/pelvis negative) DVT pptx Hyun Endorses her daughter, Tammie, as health care proxy. Patient requires continued hospitalization as her oxygen requirements continue to remain significantly elevated pending safe discharge plan Quality Stroke Does the patient have a stroke diagnosis?: No VTE Prior VTE?: No VTE Risk Level:: Medical - moderate - high VTE Device Contraindication: Treatment Not Indicated VTE Drug Contraindication: N/A - Med Ordered
[2022-04-30 15:46] VITALS: BP 115/59; PULSE 65; RESP 18; TEMP 36.6; O2SAT 95
[2022-04-30 18:45] VITALS: BP 97/55; PULSE 73; RESP 18; TEMP 36.9; O2SAT 96
[2022-05-01] VITALS: BP 124/68; PULSE 65; RESP 18; TEMP 36.8; O2SAT 98
[2022-05-01 03:50] VITALS: BP 112/64; PULSE 64; RESP 20; TEMP 36.8; O2SAT 98
[2022-05-01 06:55] LABS: Hematocrit 42.7 % (37.0-47.0); Mean Corpuscular HGB Conc 32.8 g/dl (31.0-35.0); Mean Corpuscular Hemoglobin 27.8 pg (27.0-33.0); Mean Corpuscular Volume 84.7 fL (80.0-98.0); Mean Platelet Volume 11.2 fL (9.4-12.3); Platelet Count 233 X10*3/uL (160-400); Red Blood Count 5.04 X10*6/uL (4.20-5.50); Red Cell Distribution Width 15.3 % (11.0-16.0); White Blood Count 9.6 X10*3/uL (4.8-10.8)
[2022-05-01 07:19] LABS: Anion Gap 8 (12-20); Blood Urea Nitrogen 30 mg/dL (9-16); Calcium 7.1 mg/dL (8.4-10.2); Carbon Dioxide 35 mmol/L (22-29); Chloride 98 mmol/L (96-108); Creatinine Clr Calc Pharmacy 50.3; Estimated Glomerular Filt Rate > 60; Glucose Random 74 mg/dL (60-115); Potassium 3.4 mmol/L (3.3-5.1); Sodium 138 mmol/L (135-145)
[2022-05-01 08:00] VITALS: BP 111/66; PULSE 70; RESP 19; TEMP 36.3; O2SAT 98
[2022-05-01] MEDS: Spironolactone 25 MG TABLET 12.5 MG PO (09:12)
[2022-05-01] MEDS: Sacubitril/Valsartan 49/51 1 TAB TABLET PO ×2 (09:12→21:55)
[2022-05-01] MEDS: Apixaban 5 MG TABLET PO ×2 (09:12→21:55)
[2022-05-01] MEDS: carvediloL 3.125 MG TABLET 6.25 MG PO (09:12)
[2022-05-01] MEDS: 0.9 % Sodium Chloride Flush 3 ML SYRINGE IVFLUSH ×3 (09:13→21:55)
[2022-05-01 11:30] VITALS: BP 106/65; PULSE 74; RESP 19; TEMP 36.2; O2SAT 99
[2022-05-01] MEDS: Furosemide 40 MG TABLET PO (12:46)
--- NOTE | 2022-05-01 14:06 | MHC.CM.PN ---
Addendum entered by Koki Juarez RN 05/01/22 14:09: PER CM DIRECTOR [facility] CAN ACCOMMODATE UPT TO 10L O2. Original Note: EMR REVIEWED, PER HOSPITALIST ANTIC PT WILL BE CLEARED FOR D/C TOMORROW 05/02/22. PLAN FOR STR AT [facility] FOR BLS TRANSPORT.
[2022-05-01 16:00] VITALS: BP 101/62; PULSE 92; RESP 18; TEMP 36.6; O2SAT 93
--- NOTE | 2022-05-01 16:07 | HO.PM.IMPN ---
Subjective Subjective Date of Service: 05/01/22 Interval History: seen and examined this morning Follow-up for COVID-19 Feeling better, breathing better Review of Systems Review of Systems: Yes all other systems are reviewed and are negative Constitutional Constitutional: Denies chills and Denies fever(s) Cardiovascular Cardiovascular: Denies chest pain, Denies palpitations and Denies dyspnea Respiratory Respiratory: Denies dyspnea Gastrointestinal Gastrointestinal: Denies abdominal pain Endocrine Endocrine: Denies palpitations Physical Exam Vital Signs: Vital Signs: Last Vital Signs Temp 97.8 F 05/01/22 16:00 Pulse 92 05/01/22 16:00 Resp 18 05/01/22 16:00 BP 101/62 05/01/22 16:00 Pulse Ox 93 05/01/22 16:00 O2 Del Method 05/01/22 16:00 O2 Flow Rate 3 05/01/22 11:30 Oxygen Flow Rate 2 04/18/22 04:27 BMI result Body Mass Index 26.2 Const: General: cooperative, comfortable, alert and awake Nutritional Appearance: average body habitus Orientation/consciousness: patient oriented x3 Resp: Other: coarse breath sounds bilaterally Effort & Inspection: normal respiratory effort and able to speak in complete sentences Cardio: Rate: regular rate Heart sounds: S1 normal heart sound present and S2 normal heart sound present GI: Palpation (GI): Soft to palpation and nontender Neuro: General: patient oriented x3 Extrem: Other: b/l leg edema Objective Data Active Medications Acetaminophen (Acetaminophen 325 Mg Tablet) 650 mg PO Q6H PRN PRN Reason: Pain, Mild (Pain Scale 1-3) Last Admin: 04/24/22 21:55 Dose: 650 mg Documented By: WILLIS Apixaban (Apixaban 5 Mg Tablet) 5 mg PO BID [facility] Last Admin: 05/01/22 09:12 Dose: 5 mg Documented By: MARTY Baricitinib (Baricitinib 2 Mg Tablet) 2 mg PO Q24H [facility] Stop: 05/08/22 10:01 Carvedilol (Carvedilol 3.125 Mg Tablet) 6.25 mg PO BID [facility]; Protocol Last Admin: 05/01/22 09:12 Dose: 6.25 mg Documented By: MARTY Digoxin (Digoxin 0.125 Mg Tablet) 0.125 mg PO Q2D [facility] Last Admin: 04/30/22 10:07 Dose: 0.125 mg Documented By: HERBERTH Furosemide (Furosemide 40 Mg Tablet) 40 mg PO DAILY [facility]; Protocol Last Admin: 05/01/22 12:46 Dose: 40 mg Documented By: MARTY Guaifenesin (Guaifenesin 100 Mg/5 Ml Liquid) 5 ml PO Q6H PRN PRN Reason: Cough Last Admin: 04/24/22 21:56 Dose: 5 ml Documented By: WILLIS Ondansetron HCl (Ondansetron Hcl 4 Mg/2 Ml Vial) 4 mg IVPUSH Q8H PRN PRN Reason: Nausea and Vomiting Pharmacy Consult (Consult Rx Perform Med Rec) 1 each MISCELLANE ONCE PRN PRN Reason: Consult order Sacubitril/Valsartan (Sacubitril/Valsartan 49/51 1 Tab Tablet) 1 tab PO BID [facility]; Protocol Last Admin: 05/01/22 09:12 Dose: 1 tab Documented By: MARTY Sodium Chloride (0.9 % Sodium Chloride Flush 3 Ml Syringe) 3 ml IVFLUSH QSHIFT [facility] Last Admin: 05/01/22 15:30 Dose: 3 ml Documented By: MARTY Spironolactone (Spironolactone 25 Mg Tablet) 12.5 mg PO DAILY [facility]; Protocol Last Admin: 05/01/22 09:12 Dose: 12.5 mg Documented By: MARTY Labs CBC & Chem 7: 05/01/22 06:30 05/01/22 06:30 Labs: Laboratory Results - last 24 hr 05/01/22 05/01/22 05/01/22 06:30 06:30 06:30 MCV 84.7 MCH 27.8 MCHC 32.8 RDW 15.3 Plt Count 233 MPV 11.2 Absolute Nucleated RBC 0.000 Nucleated RBC % (auto) 0.0 Anion Gap 8 L Estim Creat Clear Calc 50.3 Estimated GFR > 60 Random Glucose 74 Calcium 7.1 L B-Natriuretic Peptide Cancelled Assessment and Plan (1) Atrial fibrillation with RVR: Status: Acute (2) Lab test positive for detection of COVID-19 virus: Status: Acute (3) CHF exacerbation: Status: Acute (4) Acute respiratory failure with hypoxia: Status: Acute Plan This is an 81 year old female who has not seen a medical provider for >45 years who presented to [facility] [place] after a mechanical fall. She is found to be in acute CHF with rapid a. fib rvr + COVID19 positive. She will be admitted for further work up. Acute respiratory failure with hypoxia Due to multiple issues as below weaned to 3L COVID-19 continue steroids and baricitinib per protocol continue O2, wean as tolerated ID input appreciated CRP down trending check labs q48 hours or sooner if clinically indicated leukocytosis likely due to steroids Acute (new-onset) HFrEF (both RV and LV systolic function) > neg 14L fluid balance since admission on IV diuretics, now transtioned to PO lasix 40mg BID SCr slightly increased today and bicarb up as well - off diuretics for a couple of days - will resume Lasix 40 mg daily A. Fib with RVR (new-onset) rates improved tele shows a few episodes of sinus pauses (less than 3 secs each time and typically during sleep) Elevated HS trop-I Flat and likely from demand ischemia (A. fib/CHF/COVID) Weakness Hospital Fall PT eval no physical evidence of injury from the fall, monitor closely (CT head/pelvis negative) DVT pptx -Hyun Endorses her daughter, Tammie, as health care proxy. attending-Dr. Quintanilla Patient requires continued hospitalization as her oxygen requirements continue to remain significantly elevated pending safe discharge plan Quality Stroke Does the patient have a stroke diagnosis?: No VTE Prior VTE?: No VTE Risk Level:: Medical - moderate - high VTE Device Contraindication: Treatment Not Indicated VTE Drug Contraindication: N/A - Med Ordered
[2022-05-01 21:59] VITALS: BP 101/61; PULSE 61
[2022-05-02] VITALS (9 sets, daily range): BP systolic 101–120; BP diastolic 55–72; PULSE 54–70; RESP 18–20; TEMP 36.1–37.1; O2SAT 91–100
[2022-05-02] MEDS: 0.9 % Sodium Chloride Flush 3 ML SYRINGE IVFLUSH ×2 (07:58→16:25)
[2022-05-02] MEDS: Furosemide 40 MG TABLET PO (07:59)
[2022-05-02] MEDS: Apixaban 5 MG TABLET PO ×2 (07:59→21:28)
[2022-05-02] MEDS: Acetaminophen 325 MG TABLET 650 MG PO (07:59)
[2022-05-02] MEDS: Sacubitril/Valsartan 49/51 1 TAB TABLET PO ×2 (08:00→21:28)
[2022-05-02] MEDS: Spironolactone 25 MG TABLET 12.5 MG PO (08:00)
[2022-05-02] MEDS: carvediloL 3.125 MG TABLET 6.25 MG PO (08:01)
[2022-05-02] MEDS: Digoxin 0.125 MG TABLET PO (08:02)
--- NOTE | 2022-05-02 11:10 | P.DS_ITS ---
DS: Providers Provider Date of Service: 05/02/22 <DEREK Ren - Last Filed: 05/08/22 07:02> 05/03/22 <Deandra Marion NP - Last Filed: 05/03/22 09:09> Date of admission: 04/18/22 09:01 <DEREK Ren - Last Filed: 05/08/22 07:02> Primary care physician: None Physician <DEREK Ren - Last Filed: 05/08/22 07:02> Consults: 04/18/22 09:03 Consult to Cardiology Routine Consulting Provider: Manny Mitchell Reason for consultation: new onset a. fib and chf 04/25/22 09:28 Consult to Infectious Diseases Routine Consulting Provider: Leisa Muñoz Reason for consultation: COVID positive, now requiring more o2, ? baricitinib <DEREK Ren - Last Filed: 05/08/22 07:02> Attending physician on discharge: Lion Quintanilla <DEREK Ren - Last Filed: 05/08/22 07:02> Nghia Mlapah <Deandra Marion NP - Last Filed: 05/03/22 09:09> Discharging clinician: Andreina Soni <DEREK Ren - Last Filed: 05/08/22 07:02> DS: Diagnosis Discharge Diagnosis (1) Atrial fibrillation with RVR: Status: Acute <DEREK Ren - Last Filed: 05/08/22 07:02> (2) Lab test positive for detection of COVID-19 virus: Status: Acute <DEREK Ren - Last Filed: 05/08/22 07:02> (3) CHF exacerbation: Status: Acute <DEREK Ren - Last Filed: 05/08/22 07:02> (4) Acute respiratory failure with hypoxia: Status: Acute <DEREK Ren - Last Filed: 05/08/22 07:02> DS: Summary Hospital Course Hospital Course: from H&P on day of admission This is an 81 year old female who denies any significant PMH (although she has not seen a medical provider in > 45 years) who presents to [facility] [place] sustained a mechanical fall. The patient reports she was ambulating when her socks which are loose caused her slip and fall. She denies any loss of consciousness. She denies any current injury or pain. Upon further questioning about her cardiac status, she reports the issues started about 1 month ago. She reports palpitations with exertion began first. SHe reports that slowly over the next weeks, she began feeling short of breath and fatigued with less and less exertion. She reports she noted LE edema as well. She is unsure if she has gained weight. She reports that she felt chills the last few days and on the day prior to admission, a non-productive cough started. She is unaware of any sick contacts. She denies recent travel. She reports she lives alone in a 1 story house. Upon arrival to the ED, the patient was noted to be in rapid a. fib. She has signs and symptoms of fluid overload. Her BNP is elevated and CXR showing pleural effusions. She is also found to be covid positive. She has 3 doses of IV metoprolol, IV lasix. Her HR has improved, but still in the 110s. She has put out 1.3L of urine after lasix but still remains tachypenic with low normal satur ations on 3L (90-92). Her covid testing is positive. The patient is unsure if she has received the COVID-19 vaccine. She will now be admitted for further work up and treatment. Acute respiratory failure with hypoxia. multifactorial secondary to COVID-19, AFib, CHF. Has been weaned down to 2 L of supplemental oxygen. continue to wean oxygen as tolerated COVID-19. was treated with IV Decadron and completed full 10 day course during hospitalization. she completed 8 days of treatment with baricitinib. inflammatory markers overall downtrending. She has remained afebrile and oxygen requirement has significantly improved at this time. Acute (new-onset) HFrEF (both RV and LV systolic function). She was initially treated with IV lasix. ECHO was obtained and showed severely de creased LVEF of 10-15% As well as severely decreased right ventricular systolic function. There is mild to moderate tricuspid valve regurgitation, elevated right atrial pressure and mild pulmonary hypertension.. She was seen by cardiology. She is neg 15L fluid balance since admission, now transitioned to PO lasix 40mg daily. She was started on Entresto, Aldactone, Coreg. Lower extremity edema has improved significantly. She should follow low salt diet and call to schedule follow up with cardiology. she will need outpatient ischemic workup. A. Fib with RVR (new-onset). She was started on coreg and digoxin and HR have been controlled. Needs outpatient follow-up with Cardiology as above. Elevated HS trop-I. Flat and likely from demand ischemia (A. fib/CHF/COVID) leukocytosis has resolved and was likely secondary to steroid use. <DEREK Ren - Last Filed: 05/08/22 07:02> Time Spent with Patient Time attestation: Total time spent providing and/or coordinating discharge services: <DEREK Ren Last Filed: 05/08/22 07:02> Discharge coordination time: Greater than 30 minutes <DEREK Ren Last Filed: 05/08/22 07:02> Quality: Safe Use of Opioids Does Pt have an Active Cancer Diagnosis on the Problem List?: No <DEREK Ren - Last Filed: 05/08/22 07:02> Quality: Stroke Does the patient have a stroke diagnosis?: No <DEREK Ren Last Filed: 05/08/22 07:02> Physical Exam Vital Signs: Vital Signs: Last Vital Signs Temp 97.7 F 05/02/22 07:42 Pulse 70 05/02/22 07:54 Resp 20 05/02/22 07:42 BP 120/65 05/02/22 07:54 Pulse Ox 95 05/02/22 07:54 O2 Del Method 05/02/22 07:42 O2 Flow Rate 3 05/02/22 07:42 Oxygen Flow Rate 2 04/18/22 04:27 BMI result Body Mass Index 26.2 <DEREK Ren Last Filed: 05/08/22 07:02> Const: General: cooperative, comfortable, alert and awake <DEREK Ren Last Filed: 05/08/22 07:02> Nutritional Appearance: average body habitus <DEREK Ren Last Filed: 05/08/22 07:02> Resp: Effort & Inspection: normal respiratory effort and able to speak in complete sentences <DEREK Ren - Last Filed: 05/08/22 07:02> Cardio: Rate: regular rate <DEREK Ren - Last Filed: 05/08/22 07:02> Heart sounds: S1 normal heart sound present and S2 normal heart sound present <DEREK Ren - Last Filed: 05/08/22 07:02> GI: Inspection: No distended <DEREK Ren - Last Filed: 05/08/22 07:02> Palpation (GI): Soft to palpation and nontender <DEREK Ren - Last Filed: 05/08/22 07:02> Extrem: Other: b/l leg edema, improved <DEREK Ren - Last Filed: 05/08/22 07:02> Discharge Plan Discharge Anticipated Discharge Date/Time: 05/03/22 09:08 <DEREK Ren - Last Filed: 05/08/22 07:02> Patient Disposition: Xfer SNF <DEREK Ren - Last Filed: 05/08/22 07:02> Discharge Diagnosis: acute respiratory failure with hypoxia COVID-19 HFrEF AFib RVR <DEREK Ren - Last Filed: 05/08/22 07:02> acute respiratory failure with hypoxia COVID-19 HFrEF AFib RVR <Deandra Marion NP - Last Filed: 05/03/22 09:09> Referrals: [facility] [Outside] - 1 Week <DEREK Ren - Last Filed: 05/08/22 07:02> Discharge Medications: New Eliquis 5 mg Tablet 5 mg PO BID Qty: 1 0RF carvedilol 3.125 mg Tablet 6.25 mg PO BID Qty: 1 0RF Protocol: Hold for SBP/HR < HOLD for SBP < : 90 HOLD for HR < : 60 digoxin 125 mcg (0.125 mg) Tablet 125 mcg PO Q2D Qty: 1 0RF Entresto 49-51 mg Tablet 1 tab PO BID Qty: 1 0RF Protocol: Hold for SBP< HOLD for SBP < : 90 furosemide 40 mg Tablet 40 mg PO DAILY Qty: 1 0RF Protocol: Hold for SBP< HOLD for SBP < : 90 spironolactone 25 mg Tablet 12.5 mg PO DAILY Qty: 1 0RF Protocol: Hold for SBP< HOLD for SBP < : 90 Continued vitamin A-vitamin C-vit E-min Tablet 1 tab PO DAILY Discontinued aspirin [Aspir-81] 81 mg Tablet,Delayed Release (Dr/Ec) 81 mg PO DAILY <DEREK Ren - Last Filed: 05/08/22 07:02> Discharge Orders: Discharge Order (Routine); Ordered 05/03/22 Ordered By: Deandra Maroin <DEREK Ren - Last Filed: 05/08/22 07:02> Diet: Advance to usual diet <DEREK Ren - Last Filed: 05/08/22 07:02> Advance to usual diet <Deandra Marion NP - Last Filed: 05/03/22 09:09> Activity on Discharge: As tolerated <DREEK Ren - Last Filed: 05/08/22 07:02> As tolerated <Deandra Marion NP - Last Filed: 05/03/22 09:09> Stand Alone Forms: Patient Portal Discharge page <DEREK Ren - Last Filed: 05/08/22 07:02> Care Plan Goals: see below <DEREK Ren - Last Filed: 05/08/22 07:02> Health Concerns: acute respiratory failure with hypoxia COVID-19 acute HFrEF - new onset with both RV and LV decreased systolic function atrial fibrillation with rapid ventricular response - new onset <DEREK Ren - Last Filed: 05/08/22 07:02> Plan of Treatment: wean oxygen as tolerated recommend low-sodium diet for CHF, multiple new medications started including Lasix, Aldactone, Coreg, Entresto Eliquis started for anticoagulation in setting of atrial fibrillation. monitor for signs of bleeding call to schedule follow-up appointment with Cardiology. Will require ischemic workup recommend to repeat BMP early next week and periodically thereafter <DEREK Ren Last Filed: 05/08/22 07:02> Assessment: see discharge summary <DEREK Ren Last Filed: 05/08/22 07:02> Discharge Date/Time: 05/03/22 11:30 <DEREK Ren - Last Filed: 05/08/22 07:02>
--- NOTE | 2022-05-02 12:50 | MHC.CM.PN ---
Addendum entered by Koki Juarez RN 05/02/22 16:13: CM RECIEVDED MESSAGE FROM [facility] THAT THEY HAD CALL OUTS AND ARE UNABLE TO TAKE PT UNTIL TOMORROW AM, NSG/HOSPITALIST/[facility] UPDATED AND TRANSPORT SET UP FOR 10AM TOMORROW 05/03 Addendum entered by Koki Juarez RN 05/02/22 12:51: IMM DELIVERED TO BEDSIDE 05/02/22, PT AGREEABLE TO DISCHARGE PLAN. Original Note: PT MEDICALLY CLEARED FOR D/C TO [facility] FOR STR PENDING INSURANCE AUTH W/[facility] FOR BLS TRANSPORT
--- NOTE | 2022-05-02 16:09 | P.PNIM_ITS ---
Subjective Subjective Date of Service: 05/02/22 Interval History: seen and examined this morning Follow-up for COVID, AFib Feeling tired but overall well. No specific complaints planned for discharge, but SNF unable to take until tomorrow Review of Systems Review of Systems: Yes all other systems are reviewed and are negative Constitutional Constitutional: Denies chills and Denies fever(s) Cardiovascular Cardiovascular: Denies chest pain, Denies palpitations and Denies dyspnea Respiratory Respiratory: Denies cough and Denies dyspnea Gastrointestinal Gastrointestinal: Denies abdominal pain, Denies nausea and Denies vomiting Endocrine Endocrine: Denies palpitations Physical Exam Vital Signs: Vital Signs: Last Vital Signs Temp 97.4 F 05/02/22 12:00 Pulse 54 05/02/22 12:00 Resp 20 05/02/22 12:00 BP 101/55 L 05/02/22 12:00 Pulse Ox 100 05/02/22 12:00 O2 Del Method 05/02/22 12:00 O2 Flow Rate 2 05/02/22 12:00 Oxygen Flow Rate 2 04/18/22 04:27 BMI result Body Mass Index 26.2 Const: General: cooperative, comfortable, alert and awake Nutritional Appearance: average body habitus Orientation/consciousness: patient oriented x3 Resp: Effort & Inspection: normal respiratory effort and able to speak in complete sentences Cardio: Rate: regular rate Heart sounds: S1 normal heart sound present and S2 normal heart sound present GI: Inspection: No distended Palpation (GI): Soft to palpation and nontender Neuro: General: patient oriented x3 Extrem: Other: b/l leg edema, improved Objective Data Active Medications Acetaminophen (Acetaminophen 325 Mg Tablet) 650 mg PO Q6H PRN PRN Reason: Pain, Mild (Pain Scale 1-3) Last Admin: 05/02/22 07:59 Dose: 650 mg Documented By: SIERRA Apixaban (Apixaban 5 Mg Tablet) 5 mg PO BID [facility] Last Admin: 05/02/22 07:59 Dose: 5 mg Documented By: SIERRA Baricitinib (Baricitinib 2 Mg Tablet) 2 mg PO Q24H [facility] Stop: 05/08/22 10:01 Last Admin: 05/02/22 08:02 Dose: 2 mg Documented By: SIERRA Carvedilol (Carvedilol 3.125 Mg Tablet) 6.25 mg PO BID [facility]; Protocol Last Admin: 05/02/22 08:01 Dose: 6.25 mg Documented By: SIERRA Digoxin (Digoxin 0.125 Mg Tablet) 0.125 mg PO Q2D [facility] Last Admin: 05/02/22 08:02 Dose: 0.125 mg Documented By: SIERRA Furosemide (Furosemide 40 Mg Tablet) 40 mg PO DAILY [facility]; Protocol Last Admin: 05/02/22 07:59 Dose: 40 mg Documented By: SIERRA Guaifenesin (Guaifenesin 100 Mg/5 Ml Liquid) 5 ml PO Q6H PRN PRN Reason: Cough Last Admin: 04/24/22 21:56 Dose: 5 ml Documented By: WILLIS Ondansetron HCl (Ondansetron Hcl 4 Mg/2 Ml Vial) 4 mg IVPUSH Q8H PRN PRN Reason: Nausea and Vomiting Pharmacy Consult (Consult Rx Perform Med Rec) 1 each MISCELLANE ONCE PRN PRN Reason: Consult order Sacubitril/Valsartan (Sacubitril/Valsartan 49/51 1 Tab Tablet) 1 tab PO BID [facility]; Protocol Last Admin: 05/02/22 08:00 Dose: 1 tab Documented By: SIERRA Sodium Chloride (0.9 % Sodium Chloride Flush 3 Ml Syringe) 3 ml IVFLUSH QSHIFT [facility] Last Admin: 05/02/22 07:58 Dose: 3 ml Documented By: SIERRA Spironolactone (Spironolactone 25 Mg Tablet) 12.5 mg PO DAILY [facility]; Protocol Last Admin: 05/02/22 08:00 Dose: 12.5 mg Documented By: SIERRA Labs CBC & Chem 7: 05/01/22 06:30 05/01/22 06:30 Assessment and Plan (1) Acute respiratory failure with hypoxia: Status: Acute Plan This is an 81 year old female who has not seen a medical provider for >45 years who presented to [facility] [place] [place] after a mechanical fall. She is found to be in acute CHF with rapid a. fib rvr + COVID19 positive. She will be admitted for further work up. Acute respiratory failure with hypoxia Due to multiple issues as below weaned to 2L COVID-19 competed course of steroids and continue baricitinib per protocol - does not need on discharge continue O2, wean as tolerated ID input appreciated CRP down trending leukocytosis resolved Acute (new-onset) HFrEF (both RV and LV systolic function) > neg 15L fluid balance since admission on IV diuretics SCr slightly increased today and bicarb up as well - off diuretics for a couple of days - resumed Lasix 40 mg daily 05/01 A. Fib with RVR (new-onset) rates improved tele shows a few episodes of sinus pauses (less than 3 secs each time and typically during sleep) Elevated HS trop-I Flat and likely from demand ischemia (A. fib/CHF/COVID) Weakness Hospital Fall PT eval no physical evidence of injury from the fall, monitor closely (CT head/pelvis negative) DVT pptx -Hyun Endorses her daughter, Tammie, as health care proxy. attending-Dr. Quintanilla discharged to SNF, but at last minute SNF had staffing issue and unable to take patient until tomorrow. attempted to call daughter, no answer Patient requires continued hospitalization as her oxygen requirements continue to remain significantly elevated pending safe discharge plan Quality Stroke Does the patient have a stroke diagnosis?: No VTE Prior VTE?: No VTE Risk Level:: Medical - moderate - high VTE Device Contraindication: Treatment Not Indicated VTE Drug Contraindication: N/A - Med Ordered
[2022-05-03] VITALS: BP 94/53; PULSE 64; RESP 18; TEMP 36.8; O2SAT 96
[2022-05-03 04:00] VITALS: BP 108/61; PULSE 66; RESP 20; TEMP 37; O2SAT 96
[2022-05-03 07:54] VITALS: BP 107/59; PULSE 63; RESP 18; TEMP 37; O2SAT 98
--- NOTE | 2022-05-03 09:19 | MHC.CM.PN ---
Addendum entered by Carlie Mclean 05/03/22 11:13: CM RECEIVED CONFIRMATION FROM [facility], ANGELA RAMIRES, THEY HAVE MADE A BED FOR THIS PT AT THEIR [facility] LOCATION. AMBULANCE NOTIFIED OF DESTINATION CHANGE VIA [employer]. MED NEC UPDATED. PT AND DAUGHTER AWARE Addendum entered by Carlie Mclean 05/03/22 09:39: PTS DAUGHTER INFORMED CM THAT SHE HAD CALLED [facility] AND THEY TOLD HER THEY WERE UNAWARE OF THIS PLAN TO SEND PT TO [place] INSTEAD. SHE REPORTS SHE IS WAITING FOR THEM TO GET INTO CONTACT WITH THE LIAISON ANGELA TO CONFIRM THE PLAN. PT/DAUGHTER AGAIN STATE [facility] IS THE PREFERENCE. CM IS WAITING FOR [facility] TO CONFIRM DESTINATION Original Note: CM MET WITH PT AND DAUGHTER WHO WAS AT BEDSIDE CM INFORMED THEM [facility] HAS INDICATED THEY NO LONGER HAVE A BED AVAILABLE FOR THIS PT,. HOWEVER THEY ARE OFFERING A BED AT THEIR SISTER FACILITY, [place]. PT AND DAUGHTER REPORT BEING AGREEABLE ALTHOUGH IT IS LESS CONVENIENT THE DAUGHTER IS COMING FROM [place] FOR VISITS THEY ARE AWARE TRANSPORT HAS BEEN BOOKED FOR 1100 HOURS AND THAT [facility] HAS ALREADY REPORTED DELAYS PT WILL DC TO [facility] TODAY AT 1100 HOURS [facility]IA [facility]
[2022-05-03 10:02] VITALS: BP 110/64
[2022-05-03] MEDS: 0.9 % Sodium Chloride Flush 3 ML SYRINGE IVFLUSH (10:04)
[2022-05-03] MEDS: carvediloL 3.125 MG TABLET 6.25 MG PO (10:04)
[2022-05-03] MEDS: Sacubitril/Valsartan 49/51 1 TAB TABLET PO (10:04)
[2022-05-03] MEDS: Spironolactone 25 MG TABLET 12.5 MG PO (10:04)
[2022-05-03] MEDS: Apixaban 5 MG TABLET PO (10:04)
[2022-05-03] MEDS: Furosemide 40 MG TABLET PO (10:04)
== END 2022-05-03 11:30 | disposition skilled nursing facility (03) | DRG 291 ==
LOC: HO.ED 07:27 → HO.EDOVER 09:10 → HO.IMC 04-20 12:23
PROVIDERS: Internal Medicine; Physician Assistant Medical; Radiology Diagnostic Radiology; Student in an Organized Health Care Education/Training Program; Admitting Provider Family Medicine; Emergency Provider Student in an Organized Health Care Education/Training Program; PCP Internal Medicine; Visit Provider Nurse Practitioner Acute Care
DX: I50.21 Acute systolic (congestive) heart failure (principal); J96.01 Acute respiratory failure with hypoxia; U07.1 COVID-19; I24.8 Other forms of acute ischemic heart disease; I48.91 Unspecified atrial fibrillation
CPT/HCPCS: 36415; 70450; 71045; 71250; 71275; 72125; 72170; 80048; 80053; 81001; 82550; 82728; 83615; 83880; 84145; 84443; 84484; 85025; 85027; 85379; 85610; 86140; 87086; 87088; 87186; 87635; 93005; 93306; 96374; 96375; 96376; 97110; 97116; 97162; 99285; C1758; J1100; J1160; J1940; Q9967

== ENCOUNTER → 2022-05-19 08:59 | Outpatient (REF) | payer MEDICARE, SELFPAY ==
--- NOTE | ~2022-05-19 | NM_ITS ---
Lexiscan Myocardial perfusion study Indication: Atrial fibrillation, congestive heart failure, assess for coronary disease and ischemia Technique: The patient was brought in for a Lexiscan perfusion study on 05/20/2022 and was injected 0.4 mg of Lexiscan intravenously. Within a minute of this injection 25 mCi of sestamibi was given intravenously. Images were obtained using the SPECT gamma camera interlaced with the gating device. Images were obtained in supine position. Resting perfusion study was performed on 05/19/2022. Patient was administered 25 mCi of sestamibi intravenously at rest. Images were then obtained in supine position. Total DLP 84mGy-cm. Images were processed with the software and compared side to side in short axis, horizontal long axis and vertical long axis views. Findings: Raw acquisition reviewed. The stress perfusion study showed diminished tracer uptake along the basal part of inferior/inferolateral wall. There is subdiaphragmatic tracer uptake which interferes with image interpretation. No significant change with CT attenuation correction. The gated study shows mildly diminished LV systolic function with calculated LVEF of 40%. LV cavity is normal in size. The gated study shows globally reduced wall thickening and contraction of segments. Resting study shows diminished tracer uptake along the basal to mid part of inferior wall. There is adjacent subdiaphragmatic tracer uptake interfering with inferior wall assessment. Gating at rest reveals globally reduced wall thickening and ejection fraction at 32%. The findings are consistent with fixed defect in the basal inferior/inferolateral wall. No clear reversible defects. NM/CT cardiolite stress test Impression: 1. Myocardial perfusion imaging study shows no clear evidence of any ischemia. Fixed appearing defect in the basal part of inferior/inferolateral wall. Due to subdiaphragmatic tracer uptake, inferior wall assessment is suboptimal. Consider further workup as clinically indicated. 2. Gated LVEF is 40% during stress and 32% during rest. 3. Transient ischemic dilatation not present. EKG component of the test reported separately.
--- NOTE | 2022-05-19 09:04 | CA_ITS ---
Acquisition Time: 2022-05-20 08:58:52 Total Exercise Time: 00:02:00 Test Indications: AFIB, HEART FAILURE Medications: SEE H Protocol: LEXISCAN Max HR: 095 BPM 69% of Pred: 137 BPM Max BP: 106/066 mmHG Max Work Load: 1.0 METS Pharmacological stress test with Lexiscan injection while sitting and kicking her legs, with mild sob, no chest discomfort, with afib, RBBB throughtout without other arrythmia, with normotensive response to injection, with nondiagnostic EKG for ischemia. In recovery she continued to report miild sob that was treated with Aminophylline 75mg IVP to reverse Lexiscan with resolution of symptom. Nuclear images pending. Test reviewed with Dr Das. Referred By: Yoandy Valentin Overread By: JOSEE NUÑEZ
--- NOTE | 2022-05-19 09:04 | HM_ITS ---
* Total monitoring time 1 day 8 hours. * Underlying rhythm is atrial fibrillation. * Average rate 80/Min. Range 56 to 127/Min. Rate control seems adequate. * No significant pauses. * Rare ventricular ectopy with minimal burden. * No patient events. * There is significant downsloping ST depression with rapid rates. Baseline is isoelectric. Correlate clinically. MTDD
== END ==
LOC: HO.CARD 08:59
PROVIDERS: PCP Internal Medicine; Visit Provider Internal Medicine Cardiovascular Disease
DX: I48.20 Chronic atrial fibrillation, unspecified (principal); I50.9 Heart failure, unspecified; R09.02 Hypoxemia; Z79.01 Long term (current) use of anticoagulants
CPT/HCPCS: 78452; 93017; 93242; A9500; J0280; J2785

== ENCOUNTER → 2022-06-05 14:56 | Outpatient (BNVA) | payer MEDICARE, SELFPAY | PROVIDERS: PCP Internal Medicine; Referring Provider Internal Medicine; Visit Provider Nurse Practitioner Family | DX: I48.91 Unspecified atrial fibrillation (principal); I42.8 Other cardiomyopathies; I50.20 Unspecified systolic (congestive) heart failure; Z79.01 Long term (current) use of anticoagulants; Z79.899 Other long term (current) drug therapy | CPT/HCPCS: 99212 ==

== ENCOUNTER → 2022-08-28 12:59 | Outpatient (BNVA) | payer MEDICARE, SELFPAY | PROVIDERS: PCP Internal Medicine; Visit Provider Nurse Practitioner Family | DX: I48.91 Unspecified atrial fibrillation (principal); I50.20 Unspecified systolic (congestive) heart failure; I42.8 Other cardiomyopathies | CPT/HCPCS: 99212 ==

== ENCOUNTER → 2022-09-01 13:21 | Outpatient (REF) | payer MEDICARE, SELFPAY ==
--- NOTE | 2022-09-01 13:25 | CA_ITS ---
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 The calculated ejection fraction is 54% by biplane method. - The inferolateral wall and basal inferior segment are akinetic. Findings Left Ventricle Normal left ventricular cavity size. The left ventricular systolic function is low normal. The calculated ejection fraction is 54% by biplane method. LV peak GLS -12.6%. Wall Motion Rest Echo Findings The inferolateral wall and basal inferior segment are akinetic. Prior Study Comparison Changes noted compared to prior study dated: 04/18/2022. LVEF seems improved. Regional wall motion abnormality previously seen on images. Measurements 2D Linear Measurements IVSd: 1.01 0.6-0.9/0.6-1.0 cm LVIDd: 4.95 3.9-5.3/4.2-5.9 cm LVIDd Index: 2.80 2.4-3.2/2.2-3.1 cm/m2 LVIDs: 3.87 2.0-3.6 cm LVPWd: 1.19 0.7-1.1 cm LA Diam: 4.80 2.7-3.8/3.0-4.0 cm LAIDs Index: 2.71 1.5-2.3 cm/m2 LV Mass: 254.01 67-162/88-224 g LV Mass Index: 143.51 43-95/49-115 g/m2 LVOT Diam: 2.00 3.0+(-)1.3 cm 2D Systolic Function EF 4C: 54.50 >55% EF 2C: 53.60 >55% EF BiP: 53.80 >55% LVOT LVOT Pk Stepan: 0.87 LVOT Mn Stepan: 0.57 LVOT VTI: 0.16 LVOT Pk Grad: 3.00 LVOT Mn Grad: 2.00 LVOT Diam: 2.00 LVOT Area: 3.14 Updated in Other Vendor System with Status of Final Jordan Das MD electronically signed on 09/02/2022 4:22:21 PM with status of Final
== END ==
LOC: HO.CARD 13:21
PROVIDERS: Absent Provider Internal Medicine; PCP Internal Medicine; Visit Provider Nurse Practitioner Family
DX: I42.8 Other cardiomyopathies (principal); I50.20 Unspecified systolic (congestive) heart failure
CPT/HCPCS: 93308; 93356

== ENCOUNTER 2022-09-10 10:38 | Outpatient (REF) | payer MEDICARE, SELFPAY ==
[2022-09-10 11:04] LABS: MANUAL DIFF FLAG NO
[2022-09-10 11:15] LABS: Basophils Percent Auto 0.4 % (0-2); Eosinophils Absolute Auto 0.2 X10*3/uL (0.0-0.4); Eosinophils Percent Auto 3.3 % (0-4); Hematocrit 41.7 % (37.0-47.0); Hemoglobin 13.6 g/dl (12.0-16.0); Imm Gran Abs Auto 0.01 X10*3/uL (0.00-0.03); Imm Gran Pct Auto 0.1 % (0.0-0.4); Lymphocytes Absolute Auto 1.8 X10*3/uL (1.2-4.9); Lymphocytes Percent Auto 24.8 % (20-40); Mean Corpuscular HGB Conc 32.6 g/dl (31.0-35.0); Mean Corpuscular Hemoglobin 29.5 pg (27.0-33.0); Mean Corpuscular Volume 90.5 fL (80.0-98.0); Monocytes Absolute Auto 0.6 X10*3/uL (0.1-1.2); Monocytes Percent Auto 8.8 % (2-11); Neutrophils Absolute Auto 4.5 x10*3/uL (2.0-8.3); Neutrophils Percent Auto 62.6 % (45-73); Platelet Count 232 X10*3/uL (160-400); Red Blood Count 4.61 X10*6/uL (4.20-5.50); Red Cell Distribution Width 13.2 % (11.0-16.0); White Blood Count 7.2 X10*3/uL (4.8-10.8)
[2022-09-10 11:37] LABS: Digoxin 0.5 ng/mL (0.8-2.0)
[2022-09-10 12:04] LABS: Alanine Aminotransferase 10 U/L (0-31); Albumin Level 3.5 g/dL (3.5-5.0); Alkaline Phosphatase 64 U/L (39-117); Anion Gap 14 (12-20); Aspartate Amino Transferase 19 U/L (5-31); Bilirubin Total 0.8 mg/dL (0.0-1.0); Blood Urea Nitrogen 24 mg/dL (9-16); Carbon Dioxide 32 mmol/L (22-29); Chloride 99 mmol/L (96-108); Estimated Glomerular Filt Rate 32; Glucose Random 91 mg/dL (60-115); Potassium 3.8 mmol/L (3.3-5.1); Sodium 141 mmol/L (135-145); Total Protein 5.9 g/dL (6.5-8.0)
== END 2022-09-10 10:39 | disposition home or self-care (01) ==
LOC: HO.LAB 10:38
PROVIDERS: PCP Internal Medicine; Visit Provider Nurse Practitioner Family
DX: I48.91 Unspecified atrial fibrillation (principal); I42.8 Other cardiomyopathies; Z79.899 Other long term (current) drug therapy
CPT/HCPCS: 36415; 80053; 80162; 85025

== ENCOUNTER 2022-09-30 07:14 | Outpatient (REF) | payer MEDICARE, SELFPAY ==
[2022-09-30 08:52] LABS: B Type Natriuretic Peptide 508 pg/mL (<100)
[2022-09-30 13:20] LABS: Digoxin 0.3 ng/mL (0.8-2.0)
[2022-09-30 13:27] LABS: Anion Gap 10 (12-20); Blood Urea Nitrogen 22 mg/dL (9-16); Calcium 8.3 mg/dL (8.4-10.2); Carbon Dioxide 30 mmol/L (22-29); Chloride 102 mmol/L (96-108); Estimated Glomerular Filt Rate 37; Glucose Random 73 mg/dL (60-115); Potassium 3.9 mmol/L (3.3-5.1); Sodium 138 mmol/L (135-145)
== END 2022-09-30 07:15 | disposition home or self-care (01) ==
LOC: HO.HMGCLDS 07:14
PROVIDERS: PCP Internal Medicine; Visit Provider Nurse Practitioner Family
DX: I48.91 Unspecified atrial fibrillation (principal); I50.20 Unspecified systolic (congestive) heart failure
CPT/HCPCS: 36415; 80048; 80162; 83880

== ENCOUNTER → 2023-01-05 10:33 | Outpatient (BNVA) | payer MEDICARE, SELFPAY | PROVIDERS: PCP Internal Medicine; Visit Provider Internal Medicine Cardiovascular Disease | DX: I50.22 Chronic systolic (congestive) heart failure (principal) | CPT/HCPCS: 93005; 99212 ==

== ENCOUNTER 2023-02-26 12:16 | Outpatient (REF) | payer MEDICARE, SELFPAY ==
[2023-02-26 13:44] LABS: MANUAL DIFF FLAG NO
[2023-02-26 13:47] LABS: Basophils Percent Auto 0.6 % (0-2); Eosinophils Absolute Auto 0.2 X10*3/uL (0.0-0.4); Eosinophils Percent Auto 3.7 % (0-4); Imm Gran Abs Auto 0.01 X10*3/uL (0.00-0.03); Imm Gran Pct Auto 0.2 % (0.0-0.4); Lymphocytes Absolute Auto 1.9 X10*3/uL (1.2-4.9); Lymphocytes Percent Auto 29.4 % (20-40); Mean Corpuscular HGB Conc 32.6 g/dl (31.0-35.0); Mean Corpuscular Hemoglobin 29.3 pg (27.0-33.0); Mean Platelet Volume 10.9 fL (9.4-12.3); Monocytes Absolute Auto 0.6 X10*3/uL (0.1-1.2); Monocytes Percent Auto 9.2 % (2-11); Neutrophils Absolute Auto 3.7 x10*3/uL (2.0-8.3); Neutrophils Percent Auto 56.9 % (45-73); Platelet Count 224 X10*3/uL (160-400); Red Blood Count 4.78 X10*6/uL (4.20-5.50); Red Cell Distribution Width 13.4 % (11.0-16.0); White Blood Count 6.4 X10*3/uL (4.8-10.8)
[2023-02-26 14:00] LABS: Alanine Aminotransferase 11 U/L (0-31); Albumin Level 3.7 g/dL (3.5-5.0); Alkaline Phosphatase 79 U/L (39-117); Anion Gap 13 (12-20); Aspartate Amino Transferase 19 U/L (5-31); Bilirubin Total 0.8 mg/dL (0.0-1.0); Blood Urea Nitrogen 26 mg/dL (9-16); Calcium 9.1 mg/dL (8.4-10.2); Carbon Dioxide 28 mmol/L (22-29); Chloride 104 mmol/L (96-108); Estimated Glomerular Filt Rate 35; Glucose Random 86 mg/dL (60-115); Potassium 5.1 mmol/L (3.3-5.1); Sodium 140 mmol/L (135-145); Total Protein 6.3 g/dL (6.5-8.0)
[2023-02-26 14:28] LABS: Digoxin 0.5 ng/mL (0.8-2.0)
[2023-02-26 14:32] LABS: B Type Natriuretic Peptide 382 pg/mL (<100)
== END 2023-02-26 12:17 | disposition home or self-care (01) ==
LOC: HO.HMGCLDS 12:16
PROVIDERS: PCP Internal Medicine; Visit Provider Internal Medicine
DX: I50.22 Chronic systolic (congestive) heart failure (principal); N17.9 Acute kidney failure, unspecified; Z79.899 Other long term (current) drug therapy
CPT/HCPCS: 36415; 80053; 80162; 83880; 85025

== ENCOUNTER → 2023-04-13 12:02 | Outpatient (BNVA) | payer MEDICARE, SELFPAY | PROVIDERS: PCP Internal Medicine; Referring Provider Internal Medicine; Visit Provider Internal Medicine Cardiovascular Disease | DX: I50.9 Heart failure, unspecified (principal) | CPT/HCPCS: 93005; 99212 ==

== ENCOUNTER → 2023-07-10 09:44 | Outpatient (REF) | payer MEDICARE, SELFPAY ==
[2023-06-02 12:43] VITALS: BP 136/82; BP 148/92
[2023-06-30 14:14] VITALS: BP 108/76; BMI 24.1
== END ==
LOC: HO.CARD 09:44
PROVIDERS: PCP Internal Medicine; Visit Provider Nurse Practitioner
DX: I48.91 Unspecified atrial fibrillation (principal)
CPT/HCPCS: 93242

== ENCOUNTER → 2023-07-10 09:47 | Outpatient (BNV) | payer MEDICARE, SELFPAY ==
[2023-06-02 12:43] VITALS: BP 136/82; BP 148/92
[2023-06-30 14:14] VITALS: BP 108/76; BMI 24.1
== END ==
PROVIDERS: PCP Internal Medicine; Visit Provider Internal Medicine
DX: I48.91 Unspecified atrial fibrillation (principal)
CPT/HCPCS: 93244

== ENCOUNTER 2023-08-17 12:55 | Outpatient (AMB) | payer MEDICARE, SELFPAY ==
[2023-06-02 12:43] VITALS: BP 136/82; BP 148/92
[2023-07-27 10:33] VITALS: BP 108/76; BMI 24.1
--- NOTE | 2023-08-17 12:56 | A.OFFVIS_ITS ---
Intake Vital Signs 08/17/23 13:22 Height 5 ft 6 in Weight 151 lb 3.794 oz BMI 24.4 BP 128/78 Blood Pressure Location Lt brachial Position Sitting Respiration 14 Pulse 72 Pulse Source Palpation Intake Visit Reasons: 4 month f/u Intake Note: Shanti is a 82 year old female who presents today for a 4 months follow up. Patient reports she is doing good. No changes at the moment. Allergies No Known Allergies Allergy (Verified 08/17/23 12:57) Medication List - Last Reconciled 08/17/23 by Manny Mitchell MD apixaban (Eliquis) 5 mg PO BID 90 days carvedilol 6.25 mg PO BID 90 days furosemide (Lasix) 40 mg PO DAILY sacubitril-valsartan 49-51 mg (Entresto) 1 tab PO BID vitamin A-vitamin C-vit E-min 1 tab PO DAILY HPI HPI Comments History of Present Illness Details 82-year-old female who is here for [facility] w-up. [facility] presented with atrial fibrillation. She was diagnosed with new onset cardiomyopathy. This was treated with guideline directed medical therapy. In August 2022 she had repeat echocardiography which showed EF of 50-55%. Clinically she has been euvolemic and denying any significant symptoms. In particular no shortness of breath, orthopnea or PND. No peripheral edema. Taking medications regularly. No bleeding concerns with apixaban. Continues to be stable on follow-up. : She returns for follow-up. S he has been doing well. She is going to cardiac rehabilitation without any significant issues. She is saying she feels stronger as she is exercising. Blood pressure control is good. She is taking apixaban for anticoagulation. [facility] Surgical History No pertinent past surgical history Family History Father Substance use disorder Mother No problems noted. Social History Household Members: None Household Members Other:: lives alone, 1 brother, 1 daughter lives in [place], Housing: House Do you presently have visiting nurse or other home services: No Alcohol intake: never Patient Tobacco Use Status: Former Tobacco user e-Cigarette/Vaping Use: Never Used Second Hand Smoke Exposure: No service: No Current occupational status: retired Cognitive needs: No Hearing needs: No Vision needs: Yes Physical Exam Vital Signs: Last Vital Signs Pulse 72 08/17/23 13:22 Resp 14 08/17/23 13:22 BP 128/78 08/17/23 13:22 BMI result Body Mass Index 24.4 GENERAL APPEARANCE: in no acute distress, pleasant. NECK: no carotid bruit, no jugular venous distention. SKIN: no suspicious lesions, warm and dry. HEART: no murmurs, irregularly irregular rhythm LUNGS: clear to auscultation bilaterally. ABDOMEN: soft, nontender. EXTREMITIES: No significant edema. PERIPHERAL PULSES: equal. NEUROLOGIC: No gross deficits, AAO X 3 Assessment & Plan Assessment & Plan (1) Chronic heart failure: Code(s): I50.9 - Heart failure, unspecified (2) Atrial fibrillation: Code(s): I48.91 - Unspecified atrial fibrillation Plan 82 year female with background atrial fibrillation and cardiomyopathy. Heart rates are well controlled. EF is improved 55% from severe LV dysfunction. Clinically euvolemic and exercising at cardiac rehabilitation without any significant issues. Overall clinically stable. She will continue same medications currently. She is on Eliquis for anticoagulation for atrial fibrillation. Thank you for allowing me to participate in the care of your patient. Please feel free to contact me if you have any questions. Coding Level of Care Code Est Pt Level 3 (34070) Diagnoses Chronic heart failure I50.9 Atrial fibrillation I48.91
[2023-08-17 13:22] VITALS: BP 128/78; PULSE 72; RESP 14; BMI 24.4
== END 2023-08-17 13:38 | disposition home or self-care (01) ==
PROVIDERS: PCP Internal Medicine; Visit Provider Internal Medicine Cardiovascular Disease
DX: I50.9 Heart failure, unspecified (principal); I48.91 Unspecified atrial fibrillation
CPT/HCPCS: 99213

== ENCOUNTER → 2023-08-17 12:55 | Outpatient (BNVA) | payer MEDICARE, SELFPAY ==
[2023-06-02 12:43] VITALS: BP 136/82; BP 148/92
[2023-07-27 10:33] VITALS: BP 108/76; BMI 24.1
== END ==
PROVIDERS: PCP Internal Medicine; Visit Provider Internal Medicine Cardiovascular Disease
DX: I50.9 Heart failure, unspecified (principal); I48.91 Unspecified atrial fibrillation; Z79.01 Long term (current) use of anticoagulants
CPT/HCPCS: 99212

== ENCOUNTER 2023-10-01 11:43 | Outpatient (AMB) | payer MEDICARE, SELFPAY ==
[2023-06-02 12:43] VITALS: BP 136/82; BP 148/92
[2023-08-25 16:07] VITALS: BP 114/68; BMI 24.1
[2023-09-24 07:20] VITALS: BP 114/68; BMI 24.1
--- NOTE | 2023-10-01 11:54 | MHC.PC.OV ---
Vital Signs 10/01/23 11:57 Height 5 ft 6 in Weight 151 lb 2 oz BMI 24.4 BP 132/76 Blood Pressure Location Rt brachial Position Sitting Pulse 81 Pulse Source Pulse Oximeter Pulse Oximetry (%) 95 Oxygen Delivery Method Room Air Intake Visit Reasons: 6M follow up, rescheduled from 09/07 Allergies No Known Allergies Allergy (Verified 10/01/23 11:58) Medication List - Last Reconciled 10/01/23 by Carolyn Jurado MD apixaban (Eliquis) 5 mg PO BID 90 days carvedilol 6.25 mg PO BID 90 days furosemide (Lasix) 40 mg PO DAILY sacubitril-valsartan 49-51 mg (Entresto) 1 tab PO BID vitamin A-vitamin C-vit E-min 1 tab PO DAILY Tobacco use date assessed: 10/01/23 Fall risk assessment: No Falls in past year Last assessed Fall Risk: 10/01/23 Dental Screening Dental Screen Date: 10/01/23 Did you have a dental visit in the last 12 months?: No Did you have a dental problem in the last 6 months where you did not have access to dental care?: No Was dental information given to patient?: Patient declined HPI 6M follow up, rescheduled from 09/07 HPI Details Patient presents for the follow-up of CHF with improving ejection fraction to 55% (09/02), paroxysmal AFib stable on medications patient has been exercising 3 times a week and lives alone independently. [facility] Surgical History No pertinent past surgical history Family History Father Substance use disorder Mother No problems noted. Social History Household Members: None Household Members Other:: lives alone, 1 brother, 1 daughter lives in [place], Housing: House Do you presently have visiting nurse or other home services: No Alcohol intake: never Patient Tobacco Use Status: Former Tobacco user e-Cigarette/Vaping Use: Never Used Second Hand Smoke Exposure: No service: No Current occupational status: retired Cognitive needs: No Hearing needs: No Vision needs: Yes Questionnaire Thrive Questionnaire Date Thrive assessed: 02/26/23 AUDIT C Alcohol Use Questionnaire (AUDIT-C) 1. How often do you have a drink containing alcohol?: Never 3. How often do you have six or more drinks on one occasion?: Never Total Score: 0 Score Reviewed/Action Taken: Yes DEANDRA-7 AMB Questionnaire DEANDRA-7 Date DEANDRA - 7 assessed: 02/26/23 Source: Developed by Drs. Josh Lacey, Shanna Castro, Calixto Cleary and colleagues, with an educational vitaliy from [employer]. Review of Systems Const All systems reviewed & are unremarkable except as noted in HPI and below Reports no additional complaints Eyes Reports no additional complaints ENT Reports no additional complaints Card Reports no additional complaints Resp Reports no additional complaints GI Reports no additional complaints Reports no additional complaints Musc Reports no additional complaints Physical exam (Primary Care) Vital Signs: Last Vital Signs Pulse 81 10/01/23 11:57 BP 132/76 10/01/23 11:57 Pulse Ox 95 10/01/23 11:57 Oxygen Delivery Method Room Air 10/01/23 11:57 BMI result Body Mass Index 24.4 Tobacco/Smoking Status: Tobacco use Status Tobacco use date assessed 10/01/23 10/01/23 12:00 Patient Tobacco Use Status Former Tobacco user 10/01/23 11:54 e-Cigarette/Vaping Use Never Used 10/01/23 11:54 Thrive Assessment: Date of Thrive Assessment Date Thrive assessed 02/26/23 10/01/23 11:54 Const General: no acute distress HENMT Ears: hearing grossly normal bilaterally Throat: Yes posterior oropharynx normal Neck Neck: Yes no lymphadenopathy and Yes supple Resp Effort & Inspection: normal respiratory effort Auscultation: clear to auscultation bilaterally Cardio Rhythm: regular rhythm Heart sounds: S1 normal heart sound present and S2 normal heart sound present Skin Other: Nonhealing scaly ulcer on the tip of the nose Extrem General: Yes no clubbing, cyanosis or edema Assessment and Plan Assessment & Plan (1) Abnormal skin growth: Code(s): D49.2 - Neoplasm of unspecified behavior of bone, soft tissue, and skin Plan: refer to dermatology (2) Atrial fibrillation: Code(s): I48.91 - Unspecified atrial fibrillation Plan: Continue Eliquis and Coreg (3) Chronic heart failure: Comment: improved EF to 54% 09/02 Code(s): I50.9 - Heart failure, unspecified Plan: Continue Entresto, Coreg, furosemide check comprehensive panel and BNP today, follow-up with Cardiology in January. ? repeat Echo. f/u in 6 months Orders: Orders Complete Blood Count Auto Diff Today I48.91 - Unspecified atrial fibrillation, I50.9 - Heart failure, unspecified Comprehensive Met. Panel Today I48.91 - Unspecified atrial fibrillation, I50.9 - Heart failure, unspecified B Type Natriuretic Peptide Today I48.91 - Unspecified atrial fibrillation, I50.9 - Heart failure, unspecified Referrals Dermatology Referral D49.2 - Neoplasm of unspecified behavior of bone, soft tissue, and skin Coding Level of Care Code Est Pt Level 4 (63375) Diagnoses Abnormal skin growth D49.2 Atrial fibrillation I48.91 Chronic heart failure I50.9
[2023-10-01 11:57] VITALS: BP 132/76; PULSE 81; O2SAT 95; BMI 24.4
== END 2023-10-01 12:15 | disposition home or self-care (01) ==
PROVIDERS: PCP Internal Medicine; Visit Provider Internal Medicine
DX: D49.2 Neoplasm of unspecified behavior of bone, soft tissue, and skin (principal); I48.91 Unspecified atrial fibrillation; I50.9 Heart failure, unspecified
CPT/HCPCS: 99214

== ENCOUNTER 2023-10-01 12:19 | Outpatient (REF) | payer MEDICARE, SELFPAY ==
[2023-06-02 12:43] VITALS: BP 136/82; BP 148/92
[2023-09-24 07:20] VITALS: BP 114/68; BMI 24.1
[2023-10-01 13:22] LABS: MANUAL DIFF FLAG NO
[2023-10-01 13:35] LABS: Basophils Percent Auto 0.6 % (0-2); Eosinophils Absolute Auto 0.2 X10*3/uL (0.0-0.4); Eosinophils Percent Auto 2.6 % (0-4); Hematocrit 41.3 % (37.0-47.0); Hemoglobin 13.5 g/dl (12.0-16.0); Imm Gran Abs Auto 0.02 X10*3/uL (0.00-0.03); Imm Gran Pct Auto 0.3 % (0.0-0.4); Lymphocytes Absolute Auto 2.3 X10*3/uL (1.2-4.9); Lymphocytes Percent Auto 34.3 % (20-40); Mean Corpuscular HGB Conc 32.7 g/dl (31.0-35.0); Mean Corpuscular Hemoglobin 30.1 pg (27.0-33.0); Mean Corpuscular Volume 92.2 fL (80.0-98.0); Mean Platelet Volume 10.8 fL (9.4-12.3); Monocytes Absolute Auto 0.6 X10*3/uL (0.1-1.2); Monocytes Percent Auto 9.4 % (2-11); Neutrophils Absolute Auto 3.6 x10*3/uL (2.0-8.3); Neutrophils Percent Auto 52.8 % (45-73); Platelet Count 295 X10*3/uL (160-400); Red Blood Count 4.48 X10*6/uL (4.20-5.50); Red Cell Distribution Width 13.9 % (11.0-16.0); White Blood Count 6.8 X10*3/uL (4.8-10.8)
[2023-10-01 13:54] LABS: B Type Natriuretic Peptide 321 pg/mL (<100)
[2023-10-01 14:22] LABS: Alanine Aminotransferase 7 U/L (0-31); Albumin Level 3.6 g/dL (3.5-5.0); Alkaline Phosphatase 98 U/L (39-117); Anion Gap 11 (12-20); Aspartate Amino Transferase 16 U/L (5-31); Bilirubin Total 0.4 mg/dL (0.0-1.0); Blood Urea Nitrogen 25 mg/dL (9-16); Calcium 8.6 mg/dL (8.4-10.2); Carbon Dioxide 28 mmol/L (22-29); Chloride 105 mmol/L (96-108); Estimated Glomerular Filt Rate 38; Glucose Random 80 mg/dL (60-115); Potassium 3.8 mmol/L (3.3-5.1); Sodium 140 mmol/L (135-145); Total Protein 6.6 g/dL (6.5-8.0)
== END 2023-10-01 12:20 | disposition home or self-care (01) ==
LOC: HO.HMGCLDS 12:19
PROVIDERS: PCP Internal Medicine; Visit Provider Internal Medicine
DX: I48.91 Unspecified atrial fibrillation (principal); I50.9 Heart failure, unspecified
CPT/HCPCS: 36415; 80053; 83880; 85025

== ENCOUNTER 2024-02-24 09:45 | Outpatient (AMB) | payer BC, SELFPAY ==
[2023-11-13 11:32] VITALS: BP 114/68; BP 136/82; BP 148/92; BMI 24.1
[2024-02-24 09:55] VITALS: BP 130/70; PULSE 82; BMI 25.5
--- NOTE | 2024-02-24 09:55 | A.OFFVIS_ITS ---
Vital Signs 02/24/24 09:55 Height 5 ft 6 in Weight 158 lb 4.67 oz BMI 25.5 BP 130/70 Blood Pressure Location Lt brachial Position Sitting Pulse 82 Pulse Source Pulse Oximeter Intake Visit Reasons: r/s 12/28/23 4 mos followup Assisted Living Home Director Required: No Accompanied by: Self / Same As Patient Allergies No Known Allergies Allergy (Verified 10/01/23 11:58) Medication List - Last Reconciled 02/24/24 by Manny Mitchell MD apixaban (Eliquis) 5 mg PO BID 90 days carvedilol 6.25 mg PO BID 90 days furosemide (Lasix) 40 mg PO DAILY sacubitril-valsartan 49-51 mg (Entresto) 1 tab PO BID 90 days vitamin A-vitamin C-vit E-min 1 tab PO DAILY HPI Comments Details: 83-year-old female who is here for follow-up. She was seen in the hospital when she presented with atrial fibrillation. She was diagnosed with new onset cardiomyopathy. This was treated with guideline directed medical therapy. In August 2022 she had repeat echocardiography which showed EF of 50-55%. Clinically she has been euvolemic and denying any significant symptoms. In particular no shortness of breath, orthopnea or PND. No peripheral edema. Taking medications regularly. No bleeding concerns with apixaban. Continues to be stable on follow-up. : She returns for follow-up. She has been doing well. She is going to cardiac rehabilitation without any significant issues. She is saying she feels stronger as she is exercising. Blood pressure control is good. She is taking apixaban for anticoagulation. 02/24/24: She returns for follow-up. She has been doing well. Tolerating medications. No heart failure symptoms. No palpitations. [facility] Surgical History No pertinent past surgical history Family History Father Substance use disorder Mother No problems noted. Social History Household Members: None Household Members Other:: lives alone, 1 brother, 1 daughter lives in [place], Housing: House Do you presently have visiting nurse or other home services: No Alcohol intake: never Patient Tobacco Use Status: Former Tobacco user e-Cigarette/Vaping Use: Never Used Second Hand Smoke Exposure: No service: No Current occupational status: retired Cognitive needs: No Hearing needs: No Vision needs: Yes Review of Systems Const Denies chills, Denies fatigue, Denies fever(s), Denies frequent falls, Denies weakness, Denies weight gain and Denies weight loss ENT Denies dizziness Card Denies chest pain, Denies leg edema, Denies lightheadedness, Denies palpitations, Denies dyspnea and Denies dyspnea on exertion Resp Denies cough, Denies dyspnea and Denies dyspnea on exertion GI Denies hematochezia Musc Denies abnormal gait, Denies muscle weakness, Denies numbness, Denies radiating pain into limb and Denies tingling Neuro Denies abnormal gait, Denies dizziness, Denies frequent falls, Denies numbness, Denies tingling and Denies weakness Endo Denies fatigue and Denies palpitations Physical Exam Vital Signs: Last Vital Signs Pulse 82 02/24/24 09:55 BP 130/70 02/24/24 09:55 BMI result Body Mass Index 25.5 GENERAL APPEARANCE: in no acute distress, pleasant. NECK: no carotid bruit, no jugular venous distention. SKIN: no suspicious lesions, warm and dry. HEART: no murmurs, regular rate and rhythm. LUNGS: clear to auscultation bilaterally. ABDOMEN: soft, nontender. EXTREMITIES: No significant edema. PERIPHERAL PULSES: equal. NEUROLOGIC: No gross deficits, AAO X 3 Assessment & Plan Assessment & Plan (1) Chronic heart failure: Comment: improved EF to 54% 09/02 Code(s): I50.9 - Heart failure, unspecified Category: Medical (2) Atrial fibrillation: Code(s): I48.91 - Unspecified atrial fibrillation Category: Medical Plan 82 year female with background atrial fibrillation and cardiomyopathy. Heart rates are well controlled. EF is improved 55% from severe LV dysfunction. Clinically euvolemic and and has no symptoms. Doing well with medications and tolerating them well. No bleeding concerns with Eliquis. Follow-up in 6 months. Thank you for allowing me to participate in the care of your patient. Please feel free to contact me if you have any questions. Coding Level of Care Code Est Pt Level 4 (76938) Diagnoses Chronic heart failure I50.9 Atrial fibrillation I48.91
== END 2024-02-24 10:11 | disposition home or self-care (01) ==
PROVIDERS: PCP Internal Medicine; Visit Provider Internal Medicine Cardiovascular Disease
DX: I50.9 Heart failure, unspecified (principal); I48.91 Unspecified atrial fibrillation
CPT/HCPCS: 99214

== ENCOUNTER → 2024-02-24 09:45 | Outpatient (BNVA) | payer MEDICARE, SELFPAY ==
[2023-11-13 11:32] VITALS: BP 114/68; BP 136/82; BP 148/92; BMI 24.1
== END ==
PROVIDERS: PCP Internal Medicine; Visit Provider Internal Medicine Cardiovascular Disease

== ENCOUNTER 2024-03-16 10:04 | Outpatient (AMB) | payer MEDICARE, SELFPAY ==
[2023-06-02 12:43] VITALS: BP 136/82; BP 148/92
[2023-09-24 07:20] VITALS: BP 114/68; BMI 24.1
[2023-11-13 11:32] VITALS: BP 114/68; BP 136/82; BP 148/92; BMI 24.1
[2024-03-16 10:28] VITALS: BP 136/80; PULSE 77; O2SAT 94; BMI 25.8
--- NOTE | 2024-03-16 10:28 | MHC.PC.OV ---
Vital Signs 03/16/24 10:28 Height 5 ft 6 in Weight 160 lb BMI 25.8 BP 136/80 Blood Pressure Location Lt brachial Position Sitting Pulse 77 Pulse Source Pulse Oximeter Pulse Oximetry (%) 94 Oxygen Delivery Method Room Air Intake Visit Reasons: 6M follow up Intake Note: Pt is here today for 6 months follow up visit. Allergies No Known Allergies Allergy (Verified 03/16/24 10:42) Medication List - Last Reconciled 03/16/24 by Carolyn Jurado MD apixaban (Eliquis) 5 mg PO BID 90 days carvedilol 6.25 mg PO BID 90 days furosemide (Lasix) 40 mg PO DAILY sacubitril-valsartan 49-51 mg (Entresto) 1 tab PO BID 90 days vitamin A-vitamin C-vit E-min 1 tab PO DAILY Tobacco use date assessed: 03/16/24 Fall risk assessment: No Falls in past year Last assessed Fall Risk: 03/16/24 Dental Screening Dental Screen Date: 03/16/24 Did you have a dental visit in the last 12 months?: No Did you have a dental problem in the last 6 months where you did not have access to dental care?: No Was dental information given to patient?: Patient declined HPI 6M follow up HPI Details Patient presents for the follow-up of chronic AFib and heart failure with reduced ejection fraction. Patient has been physically active but limited with her chronic lower back pain. She denies PND orthopnea chest pain palpitations. [facility] Medical History (Updated 03/16/24 @ 15:15 by Carolyn Jurado MD) CHF exacerbation Surgical History No pertinent past surgical history Family History Father Substance use disorder Mother No problems noted. Social History Household Members: None Household Members Other:: lives alone, 1 brother, 1 daughter lives in [place], Housing: House Do you presently have visiting nurse or other home services: No Alcohol intake: never Patient Tobacco Use Status: Former Tobacco user e-Cigarette/Vaping Use: Never Used Second Hand Smoke Exposure: No service: No Current occupational status: retired Cognitive needs: No Hearing needs: No Vision needs: Yes Questionnaire PHQ-9 Over the last 2 weeks, how often have you been bothered by any of the following problems? 1. Little interest or pleasure in doing things: not at all 2. Feeling down, depressed, or hopeless: not at all 3. Trouble falling or staying asleep, or sleeping too much: not at all 4. Feeling tired or having little energy: not at all 5. Poor appetite or overeating: not at all 6. Feeling bad about yourself - or that you are a failure or have let yourself or your family down: not at all 7. Trouble concentrating on things, such as reading the newspaper or watching television: not at all 8. Moving or speaking so slowly that other people could have noticed. Or the opposite - being so fidgety or restless that you have been moving around a lot more than usual: not at all 9. Thoughts that you would be better off or of hurting yourself in some way: not at all Total score: 0 Depression Screening Interpretation: Negative Depression Screening Done: Yes Source: Developed by Drs. Josh Lacey, Shanna Castro, Calixto Cleary and colleagues, with an educational vitaliy from [employer]. Thrive Questionnaire Date Thrive assessed: 03/16/24 I am a: Patient What is your living situation today?: I have a steady place to live Within the past 12 months, did the food you bought not last and you didn't have the money to get more?: Never true Within the past 12 months, did you worry whether your food would run out before you got money to buy more?: Never true Do you have trouble paying for medicines?: No Do you have trouble getting transportation to medical appointments?: No Do you have trouble paying your heating and electricity bill?: No Do you have trouble taking care of your child, family member or friend?: No Do you have trouble with day-to-day activities such as bathing, preparing meals, shopping, managing finances, etc.?: No Are you currently unemployed and looking for a job?: No Are you interested in more education?: No Please select the resources that you would like help with: None THRIVE Score: 0 AUDIT C Alcohol Use Questionnaire (AUDIT-C) 1. How often do you have a drink containing alcohol?: Never 3. How often do you have six or more drinks on one occasion?: Never Total Score: 0 DEANDRA-7 AMB Questionnaire DEANDRA-7 Date DEANDRA - 7 assessed: 03/16/24 Feeling nervous, anxious, or on edge: 0 = Not at all Not being able to stop or control worryin = Not at all Worrying too much about different things: 0 = Not at all Trouble relaxin = Not at all Being so restless that it is hard to sit still: 0 = Not at all Becoming easily annoyed or irritable: 0 = Not at all Feeling afraid as if something awful might happen: 0 = Not at all Total DEANDRA-7 score (0-4 normal; 5-9 mild; 10-14 moderate; 15-21 severe): 0 Source: Developed by Drs. Josh Lacey, Shanna Castro, Calixto Cleary and colleagues, with an educational vitaliy from [employer]. Review of Systems Const All systems reviewed & are unremarkable except as noted in HPI and below ENT Reports no additional complaints Card Reports no additional complaints Resp Reports no additional complaints GI Reports no additional complaints Reports no additional complaints Physical exam (Primary Care) Vital Signs: Last Vital Signs Pulse 77 03/16/24 10:28 BP 136/80 03/16/24 10:28 Pulse Ox 94 03/16/24 10:28 Oxygen Delivery Method Room Air 03/16/24 10:28 BMI result Body Mass Index 25.8 Tobacco/Smoking Status: Tobacco use Status Tobacco use date assessed 03/16/24 03/16/24 10:48 Patient Tobacco Use Status Former Tobacco user 03/16/24 10:30 e-Cigarette/Vaping Use Never Used 03/16/24 10:30 PHQ-9: PHQ-9 Score PHQ-9: Total score 0 03/16/24 10:48 Depression Screening Interpretation: Negative Thrive Assessment: Date of Thrive Assessment Date Thrive assessed 03/16/24 03/16/24 10:48 Const General: no acute distress HENMT Head: Yes normal to inspection Eyes General: appearance normal, both eyes and all related structures Neck Neck: Yes supple Resp Effort & Inspection: normal respiratory effort Auscultation: clear to auscultation bilaterally Cardio Rhythm: abnormal rhythm irregularly irregular Heart sounds: S1 normal heart sound present and S2 normal heart sound present GI Inspection: Yes normal to inspection Palpation (GI): Soft to palpation Extrem General: Yes no clubbing, cyanosis or edema Assessment and Plan Assessment & Plan (1) Nonischemic cardiomyopathy: Comment: EF 20% in 2021, improved to 56% with inferior lateral wall and basal inferior wall akinesis 09/02, and negative stress test May 2022 Code(s): I42.8 - Other cardiomyopathies Plan: Continue current medications, check echocardiogram for EF. Follow-up with cardiology (2) Atrial fibrillation: Comment: Holter 06/2023, average rate of 66, persistent AFib, no significant pauses Code(s): I48.91 - Unspecified atrial fibrillation Plan: Rhythm controlled on carvedilol and anticoagulated on Eliquis (3) Atrial fibrillation with RVR: Comment: 05/02, rate controlled Code(s): I48.91 - Unspecified atrial fibrillation (4) Chronic kidney disease, stage 3: Code(s): N18.30 - Chronic kidney disease, stage 3 unspecified Plan: Monitor renal function avoid nephrotoxins and dehydration Orders: Orders CA echo limited Today I42.8 - Other cardiomyopathies, I50.9 - Heart failure, unspecified Comprehensive [place]. Panel Fast 6 Months I48.91 - Unspecified atrial fibrillation, I50.22 - Chronic systolic (congestive) heart failure Complete Blood Count Auto Diff 6 Months I48.91 - Unspecified atrial fibrillation, I50.22 - Chronic systolic (congestive) heart failure Complete Blood Count Auto Diff Today I42.8 - Other cardiomyopathies, I50.9 - Heart failure, unspecified Comprehensive Met. Panel Today I42.8 - Other cardiomyopathies, I50.9 - Heart failure, unspecified TSH reflex Free T4 6 Months I48.91 - Unspecified atrial fibrillation, I50.22 - Chronic systolic (congestive) heart failure Coding Level of Care Code Est Pt Level 4 (69579) Diagnoses Nonischemic cardiomyopathy I42.8 Atrial fibrillation I48.91 Atrial fibrillation with RVR I48.91 Chronic kidney disease, stage 3 N18.30
== END 2024-03-16 15:15 | disposition home or self-care (01) ==
PROVIDERS: PCP Internal Medicine; Visit Provider Internal Medicine
DX: I42.8 Other cardiomyopathies (principal); I48.91 Unspecified atrial fibrillation; N18.30 Chronic kidney disease, stage 3 unspecified
CPT/HCPCS: 99214

== ENCOUNTER 2024-03-16 11:25 | Outpatient (REF) | payer BC, SELFPAY ==
[2023-11-13 11:32] VITALS: BP 114/68; BP 136/82; BP 148/92; BMI 24.1
[2024-03-16 14:06] LABS: MANUAL DIFF FLAG NO
[2024-03-16 14:11] LABS: Basophils Percent Auto 0.5 % (0-2); Eosinophils Absolute Auto 0.2 X10*3/uL (0.0-0.4); Hematocrit 45.3 % (37.0-47.0); Hemoglobin 14.7 g/dl (12.0-16.0); Imm Gran Abs Auto 0.03 X10*3/uL (0.00-0.03); Imm Gran Pct Auto 0.4 % (0.0-0.4); Lymphocytes Percent Auto 26.8 % (20-40); Mean Corpuscular HGB Conc 32.5 g/dl (31.0-35.0); Mean Corpuscular Hemoglobin 29.1 pg (27.0-33.0); Mean Corpuscular Volume 89.7 fL (80.0-98.0); Mean Platelet Volume 11.1 fL (9.4-12.3); Monocytes Absolute Auto 0.6 X10*3/uL (0.1-1.2); Monocytes Percent Auto 7.3 % (2-11); Neutrophils Absolute Auto 4.7 x10*3/uL (2.0-8.3); Platelet Count 234 X10*3/uL (160-400); Red Blood Count 5.05 X10*6/uL (4.20-5.50); Red Cell Distribution Width 14.3 % (11.0-16.0); White Blood Count 7.6 X10*3/uL (4.8-10.8)
[2024-03-16 14:37] LABS: Alanine Aminotransferase 7 U/L (0-31); Albumin Level 3.7 g/dL (3.5-5.0); Alkaline Phosphatase 81 U/L (39-117); Anion Gap 11 (12-20); Aspartate Amino Transferase 17 U/L (5-31); Bilirubin Total 0.7 mg/dL (0.0-1.0); Blood Urea Nitrogen 26 mg/dL (9-16); Calcium 8.8 mg/dL (8.4-10.2); Carbon Dioxide 28 mmol/L (22-29); Chloride 103 mmol/L (96-108); Estimated Glomerular Filt Rate 38; Glucose Random 87 mg/dL (60-115); Sodium 138 mmol/L (135-145); Total Protein 6.7 g/dL (6.5-8.0)
== END 2024-03-16 11:26 | disposition home or self-care (01) ==
LOC: HO.HMGCLDS 11:25
PROVIDERS: PCP Internal Medicine; Visit Provider Internal Medicine
DX: I42.8 Other cardiomyopathies (principal); I50.9 Heart failure, unspecified
CPT/HCPCS: 36415; 80053; 85025

== ENCOUNTER → 2024-04-11 10:15 | Outpatient (REF) | payer MEDICARE, SELFPAY ==
[2023-11-13 11:32] VITALS: BP 114/68; BP 136/82; BP 148/92; BMI 24.1
--- NOTE | 2024-04-11 10:17 | CA_ITS ---
Transthoracic Echocardiogram Patient (Last, First, Middle): Shanti Shipley, Gender: Female Date of : 1940 Age: 83 Procedure Date: 04/11/2024 Procedure Type: Transthoracic Echocardiogram Location: OP Height: 167.64 cm Weight: 72.58 kg BSA: 1.82 m2 Heart Rate: bpm BP: 148 / 82 mmHg Professor Of Nursing: SB Referring MD: Carolyn Jurado MD Symptoms: I50.9 - Heart failure, unspecified Study Quality: Adequate ECG Rhythm: Atrial Fibrillation Conclusions: - The left ventricular systolic function is mildly decreased. The visually estimated ejection fraction is between 45-50%. - The basal inferior, basal anterolateral, and basal inferolateral segments are akinetic. - There is mild calcification of the aortic valve. - There is moderate mitral annular calcification. Findings Left Ventricle Normal left ventricular cavity size. The left ventricular systolic function is mildly decreased. The visually estimated ejection fraction is between 45 50%. There is evidence of regional wall motion abnormalities. Diastolic function is indeterminate on the basis of available data. There is moderate septal and moderate basal asymmetric hypertrophy. Wall Motion Rest Echo Findings The basal inferior, basal anterolateral, and basal inferolateral segments are akinetic. Right Ventricle Normal right ventricular cavity size. There is mildly decreased right ventricular systolic function. Aortic Valve There is mild calcification of the aortic valve. There is no aortic valve stenosis. There is trace (trivial) aortic valve regurgitation. Mitral Valve There is moderate mitral annular calcification. There is no mitral valve regurgitation. There is no mitral valve stenosis. Pulmonic Valve There is mild pulmonic valve regurgitation. Tricuspid Valve There is trace tricuspid valve regurgitation. There is no evidence of pulmonary hypertension. Great Vessels The asc aorta is normal in size. Venous The inferior vena cava is normal in size and collapses greater than 50% with inspiration. Pericardium/Pleural There is no evidence of pericardial effusion. Prior Study Comparison No significant change compared to prior study dated: 09/01/2022. Measurements 2D Linear Measurements IVSd: 1.51 0.6-0.9/0.6-1.0 cm LVIDd: 4.98 3.9-5.3/4.2-5.9 cm LVIDd Index: 2.74 2.4-3.2/2.2-3.1 cm/m2 LVIDs: 3.96 2.0-3.6 cm LVPWd: 0.62 0.7-1.1 cm Ao Root: 3.10 2.1-3.5 cm LV Mass: 244.73 67-162/88-224 g LV Mass Index: 134.46 43-95/49-115 g/m2 LVOT Diam: 2.00 3.0+(-)1.3 cm 2D Systolic Function EF 4C: 37.50 >55% EF 2C: 43.80 >55% EF BiP: 39.60 >55% Mitral Valve MV Pk E: 0.75 Aortic Valve AoV Pk Stepan: 0.98 AoV Pk Grad: 4.00 MARLENE: 2.06 AI Pk Stepan: 3.41 AI [place]: 1.47 LVOT LVOT Pk Stepan: 0.64 LVOT Mn Stepan: 0.45 LVOT VTI: 0.10 LVOT Pk Grad: 2.00 LVOT Mn Grad: 1.00 LVOT Diam: 2.00 LVOT Area: 3.14 Diastolic Function MV Pk E: 0.75 Right Ventricle TAPSE (mm): 13.50 TVS' Stepan: 9.73 Tricuspid Valve TR Pk Stepan: 2.33 TR Pk Grad: 22.00 RA Press: 3.00 RVSP: 25.00 Great Vessels Aorta Ao Root-2D: 3.10 2.0-3.7 cm Ao Asc: 3.70 2.1-3.4 cm Pulmonary Valve PV Pk Stepan: 0.65 Peak PV Grad: 2.00 GA Pk Stepan: 2.10 Updated in Other Vendor System with Status of Final Jordan Das MD electronically signed on 04/11/2024 11:59:59 AM with status of Final
== END ==
LOC: HO.CARD 10:15
PROVIDERS: PCP Internal Medicine; Visit Provider Internal Medicine
DX: I50.9 Heart failure, unspecified (principal); I42.8 Other cardiomyopathies
CPT/HCPCS: 93306

== ENCOUNTER → 2024-04-11 10:17 | Outpatient (BNV) | payer MEDICARE, SELFPAY ==
[2023-11-13 11:32] VITALS: BP 114/68; BP 136/82; BP 148/92; BMI 24.1
== END ==
PROVIDERS: PCP Internal Medicine; Visit Provider Internal Medicine
DX: I35.8 Other nonrheumatic aortic valve disorders (principal); I34.81 Nonrheumatic mitral (valve) annulus calcification; I42.2 Other hypertrophic cardiomyopathy
CPT/HCPCS: 93306

== ENCOUNTER 2024-07-11 08:51 | Inpatient (IN) | payer MEDICARE, SELFPAY ==
[2023-11-13 11:32] VITALS: BP 114/68; BP 136/82; BP 148/92; BMI 24.1
[2024-07-11] VITALS (7 sets, daily range): BP systolic 100–124; BP diastolic 53–79; PULSE 85–120; RESP 16–27; TEMP 36.5–37.2; O2SAT 2–95; BMI 25.4; BMI 27.8
--- NOTE | ~2024-07-11 | XR_ITS ---
EXAMINATION: XR CHEST CLINICAL INFORMATION: Cough. Shortness of breath. Fever. COMPARISON: April 25, 2022. TECHNIQUE: 2 views of the chest were obtained. FINDINGS: Examination demonstrates a patchy left middle lobe interstitial and alveolar densities suggesting focal infiltrate, atelectasis, and/or fibrotic changes. Pneumonia cannot be excluded. The right lung appears grossly clear. No significant effusion or pneumothorax is identified. The cardiac silhouette is suboptimally evaluated. Aorta is atherosclerotic and uncoiled, suggesting hypertension. Mild degenerative changes of the shoulders and spine. XR/XR chest 2V IMPRESSION: Findings as above. Electronically signed by: César Block MD 07/11/2024 10:00 AM EDT RP
--- NOTE | 2024-07-11 08:53 | ECG_ITS ---
Test Reason : chest pain Blood Pressure : / mmHG Vent. Rate : 112 BPM Atrial Rate : 000 BPM P-R Int : 000 ms QRS Dur : 136 ms QT Int : 368 ms P-R-T Axes : 000 021 -35 degrees QTc Int : 502 ms Atrial fibrillation with rapid ventricular response Right bundle branch block T wave abnormality, consider inferior ischemia Abnormal ECG When compared with ECG of 18-APR-2022 04:29, No significant change was found Referred By: Generic ED Physician Electronically Signed By:GAVINO MCCARTHY
[2024-07-11 09:56] LABS: Basophils Percent Auto 0.3 % (0-2); Eosinophils Absolute Auto 0.1 X10*3/uL (0.0-0.4); Eosinophils Percent Auto 0.7 % (0-4); Hematocrit 45.3 % (37.0-47.0); Hemoglobin 15.5 g/dl (12.0-16.0); Imm Gran Abs Auto 0.07 X10*3/uL (0.00-0.03); Imm Gran Pct Auto 0.6 % (0.0-0.4); Lymphocytes Percent Auto 8.3 % (20-40); MANUAL DIFF FLAG SCAN; Mean Corpuscular HGB Conc 34.2 g/dl (31.0-35.0); Mean Corpuscular Hemoglobin 29.5 pg (27.0-33.0); Mean Corpuscular Volume 86.3 fL (80.0-98.0); Mean Platelet Volume 10.1 fL (9.4-12.3); Monocytes Absolute Auto 1.7 X10*3/uL (0.1-1.2); Monocytes Percent Auto 14.4 % (2-11); Neutrophils Absolute Auto 8.8 x10*3/uL (2.0-8.3); Neutrophils Percent Auto 75.7 % (45-73); Platelet Count 329 X10*3/uL (160-400); Red Blood Count 5.25 X10*6/uL (4.20-5.50); Red Cell Distribution Width 13.3 % (11.0-16.0); SCAN SMEAR FLAG 1; White Blood Count 11.6 X10*3/uL (4.8-10.8)
--- NOTE | 2024-07-11 09:57 | ED.SOB ---
HPI - SOB/Dyspnea General Chief Complaint: Dyspnea Stated Complaint: Chest heaviness/DIff pneumonia Time Seen by Provider: 07/11/24 09:46 Source: patient and family ( daughter) Mode of arrival: ambulatory Limitations: no limitations History of Present Illness ED Provider: DR. Bello HPI Narrative: 83-year-old female came in for evaluation feeling sick for 1 week with generalized body ache, coughing, sneezing, feeling tightness in the chest with difficulty breathing, and subjective fever for the last 2 days. No recent travel, no sick contacts. patient normally active and live independently still drives, no supplemental oxygen home no known history of lung disease. Related Data Home Medications ?Medication ?Instructions ?Recorded ?Confirmed vitamin A-vitamin C-vit E-min 1 tab PO DAILY 04/18/22 03/16/24 tablet Previous Rx's ?Medication ?Instructions ?Recorded apixaban 5 mg tablet (Eliquis) 5 mg PO BID 90 days #180 tabs 10/13/23 carvedilol 6.25 mg tablet 6.25 mg PO BID 90 days #180 tabs 10/13/23 furosemide 40 mg tablet (Lasix) 40 mg PO DAILY #90 tabs 03/08/24 sacubitril 49 mg-valsartan 51 mg 1 tab PO BID 90 days #180 tabs 05/12/24 tablet (Entresto) Allergies Allergy/AdvReac Type Severity Reaction Status Date / Time No Known Allergies Allergy Verified 07/11/24 09:08 Review of Systems Review of Systems: All other systems are reviewed and are negative Constitutional: Reports as per HPI and Reports no additional constitutional complaints Eyes: Reports as per HPI and Reports no additional eye complaints Reports system reviewed and no additional complaints, except as documented Cardiovascular: Reports as per HPI and Reports no additional cardiovascular complaints Respiratory: Reports as per HPI and Reports no additional respiratory complaints Gastrointestinal: Reports as per HPI and Reports no additional gastrointestinal complaints Genitourinary: Reports no additional female genitourinary complaints Musculoskeletal: Reports no additional musculoskeletal complaints Skin/Breast: Reports system reviewed and no additional complaints, except as docu Psychiatric: Reports no additional psychiatric complaints Endocrine: Reports no additional endocrine complaints Hematologic/Lymphatic: Reports no additional hematologic/lymphatic complaints Allergic/Immunologic: Reports no additional allergic/immunologic complaints Reports system reviewed and no additional complaints, except as documented and Reports Abnormal speech present [facility] Past Medical History Medical History CHF exacerbation Surgical History No pertinent past surgical history Family History Family History Father Substance use disorder Mother No problems noted. Social History Social History Household Members: None Household Members Other:: lives alone, 1 brother, 1 daughter lives in [place], Housing: House Do you presently have visiting nurse or other home services: No Alcohol intake: never Patient Tobacco Use Status: Former Tobacco user Smoked in Last 30 Days: No e-Cigarette/Vaping Use: Never Used Second Hand Smoke Exposure: No Use of substances other than those prescribed or required for medical reasons: No Advance Directives: No Advance Directives Information Provided: No service: No Current occupational status: retired Cognitive needs: No Hearing needs: No Vision needs: Yes Physical Exam Vital Signs: Vital Signs: Last Vital Signs Temp 98.0 F 07/11/24 10:13 Pulse 95 07/11/24 10:53 Resp 20 07/11/24 10:53 BP 100/53 L 07/11/24 10:13 Pulse Ox 94 07/11/24 10:13 O2 Del Method Nasal Cannula 07/11/24 10:13 BMI result Body Mass Index 25.4 Vital signs have been reviewed and appear to be correct. Blood pressure elevated. Heart rate Elevated. Respiratory rate normal. Temperature normal. Oxygen saturation normal. Appearance: Alert. Oriented X3. No acute distress. Head: Normal external exam. Normocephalic. Atraumatic. No Razo signs noted. No raccoon eyes noted Eyes: PERRLA. EOMI. Conjunctiva and sclera normal. Eyelids normal. ENT: TM's Normal. Pharynx normal. Uvula midline. Moist mucous membranes. No trismus noted. No drooling noted. No muffled voice noted. Neck: Normal inspection. Neck supple. FROM. No adenopathy. Thyroid Normal. No meningeal signs. No neck mass noted. CVS: Rapid AFib, Heart sound normal. No murmurs noted. Pulses normal throughout. Respiratory: No respiratory distress. Painless inspiration. Breath sounds normal. diffuse expiratory wheezing with prolonged expiration, bilateral lower lung field crackles Chest nontender. No accessory muscle usage noted or decreased air movement noted. Abdomen: Soft and nontender. Bowel sounds normal in all 4 quadrants. No distention noted. No organomegaly noted. No visible injury noted. Back: No CVA tenderness. Full range of motion noted. Skin: Skin warm and dry. Normal skin color. Normal skin turgor. No rashes/lesions/lacerations noted. Extremities: No lower extremity edema. Extremities exhibit normal range of motion. Extremities nontender. Neuro: Oriented X 3. Cranial nerve exam: II-XII are grossly intact No motor deficit. No sensory deficit. Reflexes normal. Course Reevaluation(s) Reevaluation #1: left lower lobe pneumonia with SIRS no severe sepsis or septic shock, 88% on room air improved with 2 L of supplemental oxygen via nasal cannula, patient received ceftriaxone and doxycycline with cautious hydration Because of age and history of CHF. Time: 11:07 Medications Administered Generic Name Dose Route Start Last Admin Trade Name Freq PRN Reason Stop Dose Admin Sodium Chloride 1,000 mls @ 500 mls/hr 07/11/24 09:55 07/11/24 10:33 Ns IV 07/11/24 11:54 500 mls/hr .Q2H ONE Administration Discontinued Medications Generic Name Dose Route Start Last Admin Trade Name Freq PRN Reason Stop Dose Admin Albuterol/Ipratropium 3 ml 07/11/24 10:53 07/11/24 10:59 Albuterol/Iprat 2.5/0.5mg 3 Ml Ampul.Neb INHALE 07/11/24 10:54 3 ml ONCE ONE Administration Ceftriaxone Sodium 1 gm/ 50 mls @ 100 mls/hr 07/11/24 09:55 07/11/24 10:33 Sodium Chloride IV 07/11/24 10:24 100 mls/hr ONCE ONE Administration Methylprednisolone Sodium Succinate 125 mg 07/11/24 10:01 07/11/24 10:29 Methylprednisolone Sod Succ 125 Mg/2 Ml Vial IVPUSH 07/11/24 10:02 125 mg ONCE ONE Administration Medical Decision Making Differential Diagnosis Differential Diagnoses: The differential diagnosis associated with the presentation includes ( pneumonia, pneumothorax, sepsis, congestive heart failure, ACS, viral pneumonia, COPD new diagnosis, severe anemia, electrolyte derangement.) Admission/Observation Consideration of admission/observation: Escalation of care including admission/observation considered Consult Healthcare Provider Management of the patient was discussed with: Hospitalist ( Dr. Bernal) Lab Data MDM Lab Attestation statement: I reviewed the patient's lab results. 07/11/24 09:41 07/11/24 09:41 Labs: Lab Results 07/11/24 07/11/24 Range/Units 09:41 10:12 WBC 11.6 H (4.8-10.8) X10*3/uL RBC 5.25 (4.20-5.50) X10*6/uL Hgb 15.5 (12.0-16.0) g/dl Hct 45.3 (37.0-47.0) % MCV 86.3 (80.0-98.0) fL MCH 29.5 (27.0-33.0) pg MCHC 34.2 (31.0-35.0) g/dl RDW 13.3 (11.0-16.0) % Plt Count 329 D (160-400) X10*3/uL MPV 10.1 (9.4-12.3) fL Immature Gran % (Auto) 0.6 H (0.0-0.4) % Neut % (Auto) 75.7 H (45-73) % Lymph % (Auto) 8.3 L (20-40) % [place] % (Auto) 14.4 H (2-11) % Eos % (Auto) 0.7 (0-4) % Baso % (Auto) 0.3 (0-2) % Lymph # (Auto) 1.0 L (1.2-4.9) X10*3/uL [place] # (Auto) 1.7 H (0.1-1.2) X10*3/uL Eos # (Auto) 0.1 (0.0-0.4) X10*3/uL Baso # (Auto) 0.0 (0.0-0.2) X10*3/uL Abs Immat Gran (auto) 0.07 H (0.00-0.03) X10*3/uL Absolute Neuts (auto) 8.8 H (2.0-8.3) x10*3/uL Absolute Nucleated RBC 0.000 (0.0-0.012) X10*3/uL Nucleated RBC % (auto) 0.0 (0.0-0.2) /100WBC Smear Tech's Comments VERIFIED Sodium 136 (135-145) mmol/L Potassium 3.9 (3.3-5.1) mmol/L Chloride 102 (96-108) mmol/L Carbon Dioxide 26 (22-29) mmol/L Anion Gap 12 (12-20) BUN 20 H (9-16) mg/dL Creatinine 1.39 (0.5-1.4) mg/dL Estim Creat Clear Calc 29.9 Estimated GFR 36 Random Glucose 131 H (60-115) mg/dL Lactic Acid 1.1 (0.5-2.0) mmol/L Calcium 9.0 (8.4-10.2) mg/dL Troponin I High Sens 13.7 (<3.5-17.0) ng/L B-Natriuretic Peptide 306 H (<100) pg/mL Influenza Type A (PCR) NEGATIVE (Negative) Influenza Type B (PCR) NEGATIVE (Negative) RSV RNA Qual (PCR) NEGATIVE (Negative) SARS-CoV-2 RNA (RT-PCR) NEGATIVE (Negative) Independent Interpretation I performed an independent interpretation of an: EKG ( atrial fibrillation with RVR at 112 beats per minute, RBBB, no change from previous EKG.) and Plain X-Ray ( Chest:Examination demonstrates a patchy left middle lobe interstitial and alveolar densities suggesting focal infiltrate, atelectasis, and/or fibrotic changes. Pneumonia cannot be excluded. The right lung appears grossly clear. No significant effusion or pneumothorax is identified. The cardia) Radiology Impression Discussion of test interpretation with radiology: I have reviewed the radiologist's reading. Discharge Plan Discharge Clinical Impression: Atrial fibrillation with RVR, Pneumonia, Hypoxia Patient Disposition: Admitted As Inpatient Print Language: Slovenian
[2024-07-11 10:06] LABS: Anion Gap 12 (12-20); Blood Urea Nitrogen 20 mg/dL (9-16); Carbon Dioxide 26 mmol/L (22-29); Chloride 102 mmol/L (96-108); Creatinine Clr Calc Pharmacy 29.9; Estimated Glomerular Filt Rate 36; Glucose Random 131 mg/dL (60-115); Potassium 3.9 mmol/L (3.3-5.1); Sodium 136 mmol/L (135-145)
[2024-07-11 10:14] LABS: B Type Natriuretic Peptide 306 pg/mL (<100); Troponin-I High Sensitivity 13.7 ng/L (<3.5-17.0)
[2024-07-11 10:24] LABS: SLIDE REVIEW VERIFIED
--- NOTE | 2024-07-11 10:25 | MHC.EDTECH ---
Patient changed over. blood work was done and send to the lab, vitals taken and patient on oxygen 2L and rest comfortably in her bed and call goyal within Patient reach.
[2024-07-11] MEDS: methylPREDNISolone Sod Succ 125 MG/2 ML VIAL IVPUSH (10:29)
[2024-07-11 10:31] LABS: Influenza A PCR NEGATIVE (Negative); Influenza B PCR NEGATIVE (Negative); Resp Syncy Virus RNA Qual PCR NEGATIVE (Negative); SARS COV2 PCR INHOUSE NEGATIVE (Negative)
[2024-07-11] MEDS: cefTRIAXone sodium 1 GM in 0.9 % Sodium Chloride 50 ML IV (10:33)
[2024-07-11] MEDS: 0.9 % Sodium Chloride 1,000 ML 500 ML IV (10:33)
[2024-07-11 10:38] LABS: Lactic Acid 1.1 mmol/L (0.5-2.0)
[2024-07-11] MEDS: Albuterol/Iprat 2.5/0.5MG 3 ML AMPUL.NEB INHALE (10:59)
[2024-07-11] MEDS: Doxycycline Hyclate 100 MG in 0.9 % Sodium Chloride 250 ML 166.67 MG IV ×2 (11:23→23:05)
--- NOTE | 2024-07-11 11:58 | PHA.MEDREC ---
Pharmacy Consult ? Medication Reconciliation Pharmacy has completed the medication reconciliation. Spoke with patient to confirm meds. She stated she has not been adherent with her vitamins tablet. She last took her Eliquis this morning with all other medications.
--- NOTE | 2024-07-11 12:32 | P.HPHOSP_ITS ---
History of Present Illness Date of Service: 07/11/24 Attending physician on admission: Winston Bernal Chief Complaint: cough, fevers, sob 83-year-old female with history of persistent atrial fibrillation anticoagulated with Eliquis, heart failure reduced ejection fraction, nonischemic cardiomyopathy, CKD stage 3 presented to ED earlier today for evaluation of respiratory symptoms ongoing for 1 week. She reports subjective fevers, productive cough, throat irritation, chest congestion as well as shortness of breath which started this morning. Has not actually taken her temperature. No sore throat, abdominal pain, nausea, vomiting, persistent diarrhea, urinary symptoms, palpitations, lightheadedness, chest pains. She is not oxygen dependent at home. She does live alone and denies any known sick contacts. She is a former smoker who quit about 40 years ago. No other substances. Since arrival, has been tachycardic to 120, tachypneic and was hypoxic to 88% placed on 2 L supplemental O2 now maintaining oximetry 90-94%. There is a mild leukocytosis of 11.6. Renal function consistent with baseline, electrolyte levels normal. Lactic acid 1.1. Troponin 13.7. BNP 306. Negative for COVID, flu, RSV. Chest x-ray shows patchy left middle lobe interstitial and alveolar densities suggestive of focal infiltrate. In the ED, has received 1 L IVF, 1 g Rocephin, 100 mg doxycycline, 125 mg methylprednisolone and DuoNeb. Review of Systems 2 Review of Systems: Yes all other systems are reviewed and are negative [facility] Medical History Nonischemic cardiomyopathy Chronic kidney disease, stage 3 Atrial fibrillation CHF exacerbation Family History Father Substance use disorder Mother No problems noted. Surgical History No pertinent past surgical history Social History Household Members: None Household Members Other:: lives alone, 1 brother, 1 daughter lives in [place], Housing: House Do you presently have visiting nurse or other home services: No Alcohol intake: never Patient Tobacco Use Status: Former Tobacco user Smoked in Last 30 Days: No e-Cigarette/Vaping Use: Never Used Second Hand Smoke Exposure: No Use of substances other than those prescribed or required for medical reasons: No Advance Directives: No Advance Directives Information Provided: No service: No Current occupational status: retired Cognitive needs: No Hearing needs: No Vision needs: Yes Meds Allergies Allergy/AdvReac Type Severity Reaction Status Date / Time No Known Allergies Allergy Verified 07/11/24 09:08 Active Medications: Current Medications Acetaminophen (Acetaminophen 325 Mg Tablet) 650 mg PO Q6H PRN PRN Reason: Pain, Mild (Pain Scale 1-3), fever or headache Calcium Carbonate (Calcium Carbonate 750 Mg Tab.Chew) 750 mg PO Q4H PRN PRN Reason: Heartburn Guaifenesin (Guaifenesin 200 Mg/10 Ml 10 Ml Liquid) 10 ml PO Q6H CORIN Doxycycline Hyclate 100 mg/ (Sodium Chloride) 250 mls @ 166.67 mls/hr IV Q12H CORIN Ceftriaxone Sodium 1 gm/ (Sodium Chloride) 50 mls @ 100 mls/hr IV Q24H CORIN Magnesium Hydroxide (Milk Of Magnesia 30 Ml Oral.Susp) 30 ml PO DAILY PRN PRN Reason: Constipation Melatonin (Melatonin 3 Mg Tablet) 6 mg PO BEDTIME PRN PRN Reason: Insomnia Sodium Chloride (0.9 % Sodium Chloride Flush 3 Ml Syringe) 3 ml IVFLUSH QSHIFT [facility] Home Medications ?Medication ?Instructions ?Recorded ?Confirmed ?Last Taken ?Type vitamin A-vitamin C-vit E-min 1 tab PO DAILY 04/18/22 07/11/24 07/11/24 History tablet acetaminophen 325 mg tablet 650 mg PO Q4H PRN Pain (Scale 07/11/24 07/11/24 07/10/24 History Score 1-3) Physical Exam 2 Vital Signs and Narrative: Vital Signs: Last Vital Signs Temp 98.0 F 07/11/24 10:13 Pulse 95 07/11/24 10:53 Resp 20 07/11/24 10:53 BP 100/53 L 07/11/24 10:13 Pulse Ox 94 07/11/24 10:13 O2 Del Method Nasal Cannula 07/11/24 10:13 BMI result Body Mass Index 25.4 Constitutional - Awake and Alert, No apparent distress Eyes - PERRLA, EOMI Cardiovascular - S1S2, RRR, No edema Respiratory - Normal lung expansion, Normal respiratory effort, No respiratory distress on 2L. Diminished bilaterally but otherwise CTA Gastrointestinal - NT / ND; +BS; No rebound or guarding Extremities - no calf tenderness bilaterally, no swelling Skin - Warm/Dry Neurological - Alert & oriented x3 Psychological - Appropriate affect Results Labs 07/11/24 09:41 07/11/24 09:41 Labs: Laboratory Results - last 24 hr 07/11/24 07/11/24 09:41 10:12 MCV 86.3 MCH 29.5 MCHC 34.2 RDW 13.3 Plt Count 329 D MPV 10.1 Immature Gran % (Auto) 0.6 H Neut % (Auto) 75.7 H Lymph % (Auto) 8.3 L [place] % (Auto) 14.4 H Eos % (Auto) 0.7 Baso % (Auto) 0.3 Lymph # (Auto) 1.0 L [place] # (Auto) 1.7 H Eos # (Auto) 0.1 Baso # (Auto) 0.0 Abs Immat Gran (auto) 0.07 H Absolute Neuts (auto) 8.8 H Absolute Nucleated RBC 0.000 Nucleated RBC % (auto) 0.0 Smear Tech's Comments VERIFIED Anion Gap 12 Estim Creat Clear Calc 29.9 Estimated GFR 36 Random Glucose 131 H Lactic Acid 1.1 Calcium 9.0 Troponin I High Sens 13.7 B-Natriuretic Peptide 306 H Influenza Type A (PCR) NEGATIVE Influenza Type B (PCR) NEGATIVE RSV RNA Qual (PCR) NEGATIVE SARS-CoV-2 RNA (RT-PCR) NEGATIVE Imaging Radiologist's Impressions: Impressions Chest X-Ray 07/11/24 09:16 IMPRESSION: Findings as above. Electronically signed by: César Block MD 07/11/2024 10:00 AM EDT RP Assessment and Plan (1) Hypoxia: Status: Acute (2) Pneumonia: Status: Acute (3) Sepsis: Status: Acute Plan 83-year-old female with history of persistent atrial fibrillation anticoagulated with Eliquis, heart failure reduced ejection fraction, nonischemic cardiomyopathy, CKD stage 3 admitted for further management of pneumonia with sepsis and acute hypoxemic respiratory failure. #Acute left sided pneumonia with sepsis and acute hypoxemic respiratory failure -leukocytosis 11.6, tachycardic, tachypneic. No lactic acidosis or end-organ damage. No severe sepsis/shock on admission -CXR shows probable pneumonia in the left middle lobe -IV ceftriaxone and doxycycline (initiated 07/11) -sputum culture, strep pneumo antigen, Legionella antigen pending -guaifenesin q.6h -continue supplemental O2, wean as tolerated -follow cbc, cultures #Persistent atrial fibrillation- rate controlled -continue eliquis for AC, coreg for rate control #HFrEF/NICM -clinically euvolemic -continue po lasix, entresto, coreg #CKD stage 3 -renal function baseline DVT prophylaxis- eliquis full code pt requires inpt stay at least 2 midnights for management of pneumonia with hypoxia and sepsis requiring iv abx, supplemental 02, and close monitoring of hemodynamics Quality Stroke Does the patient have a stroke diagnosis?: No VTE Prior VTE?: No VTE Risk Level:: Medical - moderate - high VTE Device Contraindication: Treatment Not Indicated VTE Drug Contraindication: N/A - Med Ordered
[2024-07-11] MEDS: guaiFENesin 200 MG/10 ML 10 ML LIQUID PO ×3 (13:37→23:05)
[2024-07-11 13:47] LABS: VBG Base Excess 1.2 mmol/L; VBG HCO3 25 mmol/L (22-26); VBG pCO2 38 mmHg; VBG pH 7.42 (7.32-7.43); VBG pO2 36 mmHg
[2024-07-11 13:47] LABS: Venous Blood Gas Refer to POC result
[2024-07-11] MEDS: Apixaban 5 MG TABLET PO (20:07)
[2024-07-11] MEDS: carvediloL 6.25 MG TABLET PO (20:07)
[2024-07-11] MEDS: Sacubitril/Valsartan 49/51 1 TAB TABLET PO (21:29)
[2024-07-11] MEDS: 0.9 % Sodium Chloride Flush 3 ML SYRINGE IVFLUSH (21:29)
[2024-07-12] VITALS: BP 107/71; PULSE 85; RESP 18; TEMP 36; O2SAT 92
[2024-07-12 04:00] VITALS: BP 124/70; PULSE 78; RESP 18; TEMP 36; O2SAT 95
[2024-07-12] MEDS: guaiFENesin 200 MG/10 ML 10 ML LIQUID PO ×4 (05:27→23:45)
[2024-07-12 05:31] LABS: MANUAL DIFF FLAG NO
[2024-07-12 05:32] LABS: Basophils Percent Auto 0.2 % (0-2); Hematocrit 41.5 % (37.0-47.0); Hemoglobin 13.8 g/dl (12.0-16.0); Imm Gran Abs Auto 0.06 X10*3/uL (0.00-0.03); Imm Gran Pct Auto 0.6 % (0.0-0.4); Lymphocytes Absolute Auto 1.1 X10*3/uL (1.2-4.9); Lymphocytes Percent Auto 11.2 % (20-40); Mean Corpuscular HGB Conc 33.3 g/dl (31.0-35.0); Mean Corpuscular Hemoglobin 28.9 pg (27.0-33.0); Mean Platelet Volume 10.1 fL (9.4-12.3); Monocytes Absolute Auto 0.3 X10*3/uL (0.1-1.2); Monocytes Percent Auto 3.6 % (2-11); Neutrophils Percent Auto 84.4 % (45-73); Platelet Count 292 X10*3/uL (160-400); Red Blood Count 4.77 X10*6/uL (4.20-5.50); Red Cell Distribution Width 13.2 % (11.0-16.0); White Blood Count 9.5 X10*3/uL (4.8-10.8)
[2024-07-12 05:57] LABS: Anion Gap 12 (12-20); Blood Urea Nitrogen 26 mg/dL (9-16); Calcium 8.5 mg/dL (8.4-10.2); Carbon Dioxide 22 mmol/L (22-29); Chloride 104 mmol/L (96-108); Creatinine Clr Calc Pharmacy 33.1; Estimated Glomerular Filt Rate 39; Glucose Random 131 mg/dL (60-115); Sodium 134 mmol/L (135-145)
[2024-07-12 07:31] VITALS: BP 121/78; PULSE 84; RESP 16; TEMP 36.3; O2SAT 93
[2024-07-12] MEDS: Sacubitril/Valsartan 49/51 1 TAB TABLET PO ×2 (08:26→20:25)
[2024-07-12] MEDS: carvediloL 6.25 MG TABLET PO ×2 (08:26→20:25)
[2024-07-12] MEDS: Furosemide 40 MG TABLET PO (08:26)
[2024-07-12] MEDS: Apixaban 5 MG TABLET PO ×2 (08:26→20:25)
[2024-07-12] MEDS: 0.9 % Sodium Chloride Flush 3 ML SYRINGE IVFLUSH ×3 (08:27→20:26)
[2024-07-12] MEDS: cefTRIAXone sodium 1 GM in 0.9 % Sodium Chloride 50 ML IV (11:03)
[2024-07-12] MEDS: Doxycycline Hyclate 100 MG in 0.9 % Sodium Chloride 250 ML 166.67 MG IV ×2 (11:33→23:44)
--- NOTE | 2024-07-12 13:04 | MHC.CM.PN ---
IMM DELIVERED PT LIVES ALONE. USES [facility] FOR MOBILITY BUT DOES OWN A ROLLATOR. HAS PRIVATE HOMEMAKING SERVICES. + HCP ON FILE PER DAUGHTER. PCP DR. WHITE DP: HOME , NO SERVICES IS THE GOAL. IF SERVICES ARE RECOMMENDED, PT IS AGREEABLE AND WOULD LIKE [facility] FIRST CHOICE. DAUGHTER WILL TRANSPORT. CM WILL CONTINUE TO FOLLOW FOR ANY CHANGES TO DC PLAN/NEEDS.
--- NOTE | 2024-07-12 13:17 | HO.PM.IMPN ---
Subjective Subjective Date of Service: 07/12/24 Interval History: pneumonia Review of Systems sob with minimum excersion has cough Physical Exam Vital Signs: Vital Signs: Last Vital Signs Temp 97.3 F 07/12/24 07:31 Pulse 84 07/12/24 07:31 Resp 16 07/12/24 07:31 BP 121/78 07/12/24 07:31 Pulse Ox 93 07/12/24 07:31 O2 Del Method Nasal Cannula 07/12/24 07:31 O2 Flow Rate 2 07/12/24 07:31 BMI result Body Mass Index 27.8 Appearance: Alert.? Oriented X3. cvs: rrr, [id number]. res:air entry fair except-diminshed somewhat left sided . abd: no rebound or guarding ,nt, bs present. ext pulses present , no cyanosis. neuro: axo3 , nonfocal. Objective Data Active Medications Acetaminophen (Acetaminophen 325 Mg Tablet) 650 mg PO Q6H PRN PRN Reason: Pain, Mild (Pain Scale 1-3), fever or headache Apixaban (Apixaban 5 Mg Tablet) 5 mg PO BID [facility] Last Admin: 07/12/24 08:26 Dose: 5 mg Documented By: COTEMA Calcium Carbonate (Calcium Carbonate 750 Mg Tab.Chew) 750 mg PO Q4H PRN PRN Reason: Heartburn Carvedilol (Carvedilol 6.25 Mg Tablet) 6.25 mg PO BID [facility]; Protocol Last Admin: 07/12/24 08:26 Dose: 6.25 mg Documented By: COTFERNANDO Furosemide (Furosemide 40 Mg Tablet) 40 mg PO DAILY [facility]; Protocol Last Admin: 07/12/24 08:26 Dose: 40 mg Documented By: COTEMA Guaifenesin (Guaifenesin 200 Mg/10 Ml 10 Ml Liquid) 10 ml PO Q6H [facility] Last Admin: 07/12/24 11:33 Dose: 10 ml Documented By: COTEMA Doxycycline Hyclate 100 mg/ (Sodium Chloride) 250 mls @ 166.67 mls/hr IV Q12H [facility] Last Admin: 07/12/24 11:33 Dose: 166.67 mls/hr Documented By: COTEMA Ceftriaxone Sodium 1 gm/ (Sodium Chloride) 50 mls @ 100 mls/hr IV Q24H [facility] Last Infusion: 07/12/24 11:36 Dose: Infused Documented By: MARTY Magnesium Hydroxide (Milk Of Magnesia 30 Ml Oral.Susp) 30 ml PO DAILY PRN PRN Reason: Constipation Melatonin (Melatonin 3 Mg Tablet) 6 mg PO BEDTIME PRN PRN Reason: Insomnia Sacubitril/Valsartan (Sacubitril/Valsartan 49/51 1 Tab Tablet) 1 tab PO BID [facility]; Protocol Last Admin: 07/12/24 08:26 Dose: 1 tab Documented By: MARTY Sodium Chloride (0.9 % Sodium Chloride Flush 3 Ml Syringe) 3 ml IVFLUSH QSHIFT [facility] Last Admin: 07/12/24 08:27 Dose: 3 ml Documented By: MARTY Labs 07/12/24 05:22 07/12/24 05:22 Labs: Laboratory Results - last 24 hr 07/11/24 07/12/24 13:43 05:22 MCV 87.0 MCH 28.9 MCHC 33.3 RDW 13.2 Plt Count 292 MPV 10.1 Immature Gran % (Auto) 0.6 H Neut % (Auto) 84.4 H Lymph % (Auto) 11.2 L Stephens % (Auto) 3.6 Eos % (Auto) 0.0 Baso % (Auto) 0.2 Lymph # (Auto) 1.1 L Stephens # (Auto) 0.3 Eos # (Auto) 0.0 Baso # (Auto) 0.0 Abs Immat Gran (auto) 0.06 H Absolute Neuts (auto) 8.0 Absolute Nucleated RBC 0.000 Nucleated RBC % (auto) 0.0 VBG pH 7.42 VBG pCO2 38 VBG pO2 36 VBG HCO3 25 VBG O2 Saturation 56.0 VBG Base Excess 1.2 Anion Gap 12 Estim Creat Clear Calc 33.1 Estimated GFR 39 Random Glucose 131 H Calcium 8.5 Microbiology Microbiology Results: Microbiology 07/11/24 10:16 Blood Culture - Preliminary Blood - Venous No growth after 24 hours. 07/11/24 10:12 Blood Culture - Preliminary Blood - Venous No growth after 24 hours. Assessment and Plan (1) Pneumonia: Status: Acute Plan 83-year-old female with history of persistent atrial fibrillation anticoagulated with Eliquis, heart failure reduced ejection fraction, nonischemic cardiomyopathy, CKD stage 3 admitted for further management of pneumonia with sepsis and acute hypoxemic respiratory failure. Acute left sided pneumonia with sepsis and acute hypoxemic respiratory failure CXR shows probable pneumonia in the left middle lobe, leukocytosis improved, no fever sepsis resolved plan: continue IV ceftriaxone and doxycycline (initiated 07/11) sputum culture, strep pneumo antigen, Legionella antigen pending guaifenesin q.6h continue supplemental O2, wean as tolerated follow cbc, cultures Persistent atrial fibrillation- rate controlled -continue eliquis for AC, coreg for rate control HFrEF/NICM -clinically euvolemic -continue po lasix, entresto, coreg CKD stage 3-renal function baseline. DVT prophylaxis- eliquis ongoing hospitlisation of pneumonia with hypoxia and sepsis requiring iv abx, supplemental 02, and close monitoring of hemodynamics Quality Stroke Does the patient have a stroke diagnosis?: No VTE Prior VTE?: No VTE Risk Level:: Medical - moderate - high VTE Device Contraindication: Treatment Not Indicated VTE Drug Contraindication: N/A - Med Ordered
[2024-07-12 15:13] VITALS: O2SAT 94
[2024-07-12 15:44] VITALS: BP 118/72; PULSE 82; RESP 18; TEMP 36.2; O2SAT 96
[2024-07-12 20:00] VITALS: BP 112/65; PULSE 81; RESP 16; TEMP 36.2; O2SAT 93
[2024-07-13 03:48] VITALS: BP 120/77; PULSE 82; RESP 18; TEMP 36.3; O2SAT 92
[2024-07-13] MEDS: guaiFENesin 200 MG/10 ML 10 ML LIQUID PO ×3 (05:37→17:29)
[2024-07-13 07:32] VITALS: BP 127/72; PULSE 88; RESP 18; TEMP 37; O2SAT 92
[2024-07-13] MEDS: Furosemide 40 MG TABLET PO (08:26)
[2024-07-13] MEDS: Apixaban 5 MG TABLET PO ×2 (08:26→21:12)
[2024-07-13] MEDS: carvediloL 6.25 MG TABLET PO ×2 (08:26→21:12)
[2024-07-13] MEDS: Sacubitril/Valsartan 49/51 1 TAB TABLET PO ×2 (08:26→21:12)
[2024-07-13] MEDS: 0.9 % Sodium Chloride Flush 3 ML SYRINGE IVFLUSH ×3 (08:27→21:14)
[2024-07-13] MEDS: cefTRIAXone sodium 1 GM in 0.9 % Sodium Chloride 50 ML IV (11:31)
[2024-07-13] MEDS: Doxycycline Hyclate 100 MG in 0.9 % Sodium Chloride 250 ML 166.67 MG IV (11:33)
[2024-07-13 11:51] VITALS: BP 116/62; PULSE 83; RESP 16; TEMP 36.6; O2SAT 92
--- NOTE | 2024-07-13 13:32 | HO.PM.IMPN ---
Subjective Subjective Date of Service: 07/13/24 Interval History: pneumonia Review of Systems sob with minimum excersion has cough Physical Exam Vital Signs: Vital Signs: Last Vital Signs Temp 97.8 F 07/13/24 11:51 Pulse 83 07/13/24 11:51 Resp 16 07/13/24 11:51 BP 116/62 07/13/24 11:51 Pulse Ox 92 07/13/24 11:51 O2 Del Method Nasal Cannula 07/13/24 11:51 O2 Flow Rate 1.0 07/13/24 11:51 BMI result Body Mass Index 27.8 Appearance: Alert.? Oriented X3. cvs: rrr, [id number]. res:air entry fair except-diminshed somewhat left sided . abd: no rebound or guarding ,nt, bs present. ext pulses present , no cyanosis. neuro: axo3 , nonfocal. Objective Data Active Medications Acetaminophen (Acetaminophen 325 Mg Tablet) 650 mg PO Q6H PRN PRN Reason: Pain, Mild (Pain Scale 1-3), fever or headache Apixaban (Apixaban 5 Mg Tablet) 5 mg PO BID [facility] Last Admin: 07/13/24 08:26 Dose: 5 mg Documented By: CORY Calcium Carbonate (Calcium Carbonate 750 Mg Tab.Chew) 750 mg PO Q4H PRN PRN Reason: Heartburn Carvedilol (Carvedilol 6.25 Mg Tablet) 6.25 mg PO BID [facility]; Protocol Last Admin: 07/13/24 08:26 Dose: 6.25 mg Documented By: CORY Furosemide (Furosemide 40 Mg Tablet) 40 mg PO DAILY [facility]; Protocol Last Admin: 07/13/24 08:26 Dose: 40 mg Documented By: CORY Guaifenesin (Guaifenesin 200 Mg/10 Ml 10 Ml Liquid) 10 ml PO Q6H [facility] Last Admin: 07/13/24 11:32 Dose: 10 ml Documented By: CORY Doxycycline Hyclate 100 mg/ (Sodium Chloride) 250 mls @ 166.67 mls/hr IV Q12H [facility] Last Infusion: 07/13/24 13:22 Dose: Infused Documented By: CORY Ceftriaxone Sodium 1 gm/ (Sodium Chloride) 50 mls @ 100 mls/hr IV Q24H [facility] Last Infusion: 07/13/24 12:04 Dose: Infused Documented By: CORY Magnesium Hydroxide (Milk Of Magnesia 30 Ml Oral.Susp) 30 ml PO DAILY PRN PRN Reason: Constipation Melatonin (Melatonin 3 Mg Tablet) 6 mg PO BEDTIME PRN PRN Reason: Insomnia Sacubitril/Valsartan (Sacubitril/Valsartan 49/51 1 Tab Tablet) 1 tab PO BID [facility]; Protocol Last Admin: 07/13/24 08:26 Dose: 1 tab Documented By: CORY Sodium Chloride (0.9 % Sodium Chloride Flush 3 Ml Syringe) 3 ml IVFLUSH QSHIFT [facility] Last Admin: 07/13/24 08:27 Dose: 3 ml Documented By: CORY Labs 07/12/24 05:22 07/12/24 05:22 Microbiology Microbiology Results: Microbiology 07/11/24 10:16 Blood Culture - Preliminary Blood - Venous No growth after 48 hours. 07/11/24 10:12 Blood Culture - Preliminary Blood - Venous No growth after 48 hours. Assessment and Plan (1) Pneumonia: Status: Acute Plan 83-year-old female with history of persistent atrial fibrillation anticoagulated with Eliquis, heart failure reduced ejection fraction, nonischemic cardiomyopathy, CKD stage 3 admitted for further management of pneumonia with sepsis and acute hypoxemic respiratory failure. Acute left sided pneumonia with sepsis and acute hypoxemic respiratory failure CXR shows probable pneumonia in the left middle lobe, leukocytosis improved, no fever sepsis resolved plan: continue IV ceftriaxone and doxycycline (initiated 07/11) sputum culture, strep pneumo antigen, Legionella antigen pending guaifenesin q.6h continue supplemental O2, wean as tolerated follow cbc, cultures Persistent atrial fibrillation- rate controlled -continue eliquis for AC, coreg for rate control HFrEF/NICM -clinically euvolemic -continue po lasix, entresto, coreg CKD stage 3-renal function baseline. DVT prophylaxis- eliquis ongoing hospitlisation of pneumonia with hypoxia and sepsis requiring iv abx, supplemental 02, and close monitoring of hemodynamics Quality Stroke Does the patient have a stroke diagnosis?: No VTE Prior VTE?: No VTE Risk Level:: Medical - moderate - high VTE Device Contraindication: Treatment Not Indicated VTE Drug Contraindication: N/A - Med Ordered
--- NOTE | 2024-07-13 14:05 | MHC.CM.PN ---
EMR REVIEWED AND PER MD ROUNDS, PT IS NOT MEDICALLY CLEARED FOR DC ( HYPOXIA, BEING WEANED FROM 02) [facility] IS FOLLOWING FOR DC NEEDS. CM WILL CONTINUE TO FOLLOW FOR ANY CHANGE TO DC PLAN/NEEDS.
[2024-07-13 15:29] VITALS: BP 137/63; PULSE 82; RESP 16; TEMP 36.9; O2SAT 94
[2024-07-13 19:18] VITALS: BP 135/67; PULSE 94; RESP 18; TEMP 37.1; O2SAT 93
[2024-07-14] MEDS: Doxycycline Hyclate 100 MG in 0.9 % Sodium Chloride 250 ML 166.67 MG IV (00:30)
[2024-07-14] MEDS: guaiFENesin 200 MG/10 ML 10 ML LIQUID PO ×3 (00:46→11:25)
[2024-07-14 03:42] VITALS: BP 141/84; PULSE 98; RESP 18; TEMP 37.2; O2SAT 92
[2024-07-14 07:42] VITALS: BP 133/63; PULSE 95; RESP 16; TEMP 36.9; O2SAT 94
[2024-07-14] MEDS: Sacubitril/Valsartan 49/51 1 TAB TABLET PO (08:40)
[2024-07-14] MEDS: Furosemide 40 MG TABLET PO (08:41)
[2024-07-14] MEDS: 0.9 % Sodium Chloride Flush 3 ML SYRINGE IVFLUSH (08:41)
[2024-07-14] MEDS: Apixaban 5 MG TABLET PO (08:41)
[2024-07-14] MEDS: carvediloL 6.25 MG TABLET PO (08:41)
[2024-07-14 10:10] VITALS: O2SAT 90
[2024-07-14] MEDS: cefTRIAXone sodium 1 GM in 0.9 % Sodium Chloride 50 ML IV (10:21)
[2024-07-14] MEDS: Doxycycline Monohydrate 100 MG CAPSULE PO (11:01)
[2024-07-14 11:08] VITALS: PULSE 110; O2SAT 91; O2SAT 92
[2024-07-14] MEDS: cefuroxime axetiL 500 MG TABLET PO (11:25)
--- NOTE | 2024-07-14 11:25 | PM.DS ---
DS: Providers Provider Date of Service: 07/14/24 Date of admission: 07/11/24 12:27 Date of discharge: 07/14/24 Primary care physician: Carolyn Jurado MD Attending physician on discharge: Lexx Flanagan Discharging clinician: Lexx Flanagan DS: Diagnosis Discharge Diagnosis (1) Pneumonia: Status: Acute DS: Summary Hospital Course Hospital Course: 83-year-old female with history of persistent atrial fibrillation anticoagulated with Eliquis, heart failure reduced ejection fraction, nonischemic cardiomyopathy, CKD stage 3 presented to ED earlier today for evaluation of respiratory symptoms ongoing for 1 week. She reports subjective fevers, productive cough, throat irritation, chest congestion as well as shortness of breath which started this morning. Has not actually taken her temperature. No sore throat, abdominal pain, nausea, vomiting, persistent diarrhea, urinary symptoms, palpitations, lightheadedness, chest pains. She is not oxygen dependent at home. She does live alone and denies any known sick contacts. She is a former smoker who quit about 40 years ago. No other substances. Since arrival, has been tachycardic to 120, tachypneic and was hypoxic to 88% placed on 2 L supplemental O2 now maintaining oximetry 90-94%. There is a mild leukocytosis of 11.6. Renal function consistent with baseline, electrolyte levels normal. Lactic acid 1.1. Troponin 13.7. BNP 306. Negative for COVID, flu, RSV. Chest x-ray shows patchy left middle lobe interstitial and alveolar densities suggestive of focal infiltrate. In the ED, has received 1 L IVF, 1 g Rocephin, 100 mg doxycycline, 125 mg methylprednisolone and DuoNeb. Hospital course: 83-year-old female with history of persistent atrial fibrillation anticoagulated with Eliquis, heart failure reduced ejection fraction, nonischemic cardiomyopathy, CKD stage 3 admitted for further management of pneumonia with sepsis and acute hypoxemic respiratory failure-patient had mild leukocytosis 11.6, chest x-ray shows left middle lobe pneumonia, strep and Legionella in a antigen sent, blood cultures sent, sputum cultures sent-patient was started on IV antibiotics: With above management patient hypoxia and leukocytosis resolved, patient seems asymptomatic currently, off oxygen. Blood culture negative at 48 hours, sputum culture pending as well as strep and Legionella antigen but since the patient is improved significantly,Patient will be going home with Ceftin 500 mg p.o. b.i.d., doxycycline 100 mg p.o. b.i.d. for 6 days.Consider outpatient chest imaging in 3-4 weeks to see resolution pneumonia. Follow-up sputum culture pending as well as strep and Legionella antigen outpatient. Has mild hyponatremia possibly related to low p.o. intake, encouraged for p.o. intake and monitor BMP out patiently in 1 week. plan: Complete Ceftin 500 mg p.o. b.i.d., doxycycline 100 mg p.o. b.i.d. for 6 days.Consider outpatient chest imaging in 3-4 weeks to see resolution pneumonia. Follow-up sputum culture pending as well as strep and Legionella antigen outpatient. hyponatremia- monitor BMP out patiently in 1 week. Above management discussed with the patient detail length, she understand and in agreement with the plan, time spent 40 minute. Time Attestation Total time managing care of this patient today: 40 mintues. Discharge Coordination Time (in mins): 40 min Quality: Safe Use of Opioids Does Pt have an Active Cancer Diagnosis on the Problem List?: No Quality: Stroke Does the patient have a stroke diagnosis?: No Physical Exam Vital Signs: Vital Signs: Last Vital Signs Temp 98.4 F 07/14/24 07:42 Pulse 110 H 07/14/24 11:08 Resp 16 07/14/24 07:42 BP 133/63 07/14/24 07:42 Pulse Ox 92 07/14/24 11:08 O2 Del Method Room Air 07/14/24 11:08 O2 Flow Rate 1.0 07/14/24 07:42 BMI result Body Mass Index 27.8 Appearance: Alert.? Oriented X3. cvs: rrr, [id number]. res:air entry fair , no rales or wheezing. abd: no rebound or guarding ,nt, bs present. ext pulses present , no cyanosis. neuro: axo3 , nonfocal. DS: Data Data Completed and Pending Completed studies during hospitalization [Text1]: Procedures Introduction of Baricitinib into Mouth and Pharynx, External Approach, [employer] 6 (04/18/22) Labs on day of discharge: Preliminary micro results at discharge 07/11/24 10:16 Blood Culture - Preliminary Blood - Venous No growth after 48 hours. 07/11/24 10:12 Blood Culture - Preliminary Blood - Venous No growth after 48 hours. Imaging Chest x-ray: Radiologist's impression: ITS Impressions Chest X-Ray 07/11/24 09:16 IMPRESSION: Findings as above. Electronically signed by: César Block MD 07/11/2024 10:00 AM EDT RP Discharge Plan Discharge Anticipated Discharge Date/Time: 07/14/24 11:14 Patient Disposition: Home, Self-Care Discharge Diagnosis: Acute hypoxemic respiratory failure secondary to Sepsis with pneumonia, AFib with RVR Referrals: Carolyn Jurado MD [Primary Care Provider] - 1 Week Discharge Medications: New doxycycline monohydrate 100 mg Capsule 100 mg PO Q12H Qty: 12 0RF cefuroxime axetil 500 mg Tablet 500 mg PO Q12H Qty: 12 0RF Continued Eliquis 5 mg tablet 5 mg PO BID 90 Days Qty: 180 3RF carvedilol 6.25 mg tablet 6.25 mg PO BID 90 Days Qty: 180 3RF Rx Instructions: must administer with a meal/food furosemide [Lasix] 40 mg tablet 40 mg PO DAILY Qty: 90 3RF Entresto 49-51 mg tablet 1 tab PO BID 90 Days Qty: 180 3RF vitamin A-vitamin C-vit E-min Tablet 1 tab PO DAILY acetaminophen 325 mg Tablet 650 mg PO Q4H PRN (Reason: Pain (Scale Score 1-3)) Discharge Orders: Discharge Order (Routine); Ordered 07/14/24 Ordered By: Lexx Flanagan Diet: Advance to usual diet Activity on Discharge: As tolerated Stand Alone Forms: Patient Portal Discharge page Print Language: Azeri Other Ambulatory Orders: Basic Metabolic Panel (Routine) Timeframe: 1 Week Facility: [facility] - Location: Laboratory Ordered By: Lexx Flanagan Care Plan Goals: 83-year-old female with history of persistent atrial fibrillation anticoagulated with Eliquis, heart failure reduced ejection fraction, nonischemic cardiomyopathy, CKD stage 3 admitted for further management of pneumonia with sepsis and acute hypoxemic respiratory failure-patient had mild leukocytosis 11.6, chest x-ray shows left middle lobe pneumonia, strep and Legionella in a antigen sent, blood cultures sent, sputum cultures sent-patient was started on IV antibiotics: With above management patient hypoxia and leukocytosis resolved, patient seems asymptomatic currently, off oxygen. Blood culture negative at 48 hours, sputum culture pending as well as strep and Legionella antigen but since the patient is improved significantly,Patient will be going home with Ceftin 500 mg p.o. b.i.d., doxycycline 100 mg p.o. b.i.d. for 6 days.Consider outpatient chest imaging in 3-4 weeks to see resolution pneumonia. Follow-up sputum culture pending as well as strep and Legionella antigen outpatient. Has mild hyponatremia possibly related to low p.o. intake, encouraged for p.o. intake and monitor BMP out patiently in 1 week. Health Concerns: As above. Plan of Treatment: Complete Ceftin 500 mg p.o. b.i.d., doxycycline 100 mg p.o. b.i.d. for 6 days.Consider outpatient chest imaging in 3-4 weeks to see resolution pneumonia. Follow-up sputum culture pending as well as strep and Legionella antigen outpatient. hyponatremia- monitor BMP out patiently in 1 week. Assessment: As above. Patient Instructions: Pneumonia (DC)
--- NOTE | 2024-07-14 11:47 | MHC.CM.PN ---
PT CLEARED TO DC TODAY CM MET WITH PT AND DAUGHTER AT BEDSIDE PT WILL BE DISCHARGING TO DAUGHTERS HOME IN [place] SHE SAYS SHE WOULD BE INTERESTED IN [facility] WHEN SHE RETURNS HOME SHE IS NOW AWARE SHE CAN CONTACT HER PCP FOR [facility] ONCE SHE IS HOME DAUGHTER WILL TRANSPORT
--- NOTE | 2024-07-14 12:14 | PC.NURSE ---
Discharge summary reviewed with pt and daughter. Verbalized understanding of all instructions. Pt requested cough medication to be called into pharmacy. Dr. Flanagan notified and verbalized will call medication in. Pt updated and agreeable with plan.
[2024-07-15 05:47] LABS: Strep Pneumo Ag urine Detected (Not Detected)
[2024-07-20 04:13] LABS: Legionella Ag Urine Not Detected (Not Detected)
--- NOTE | 2024-07-26 17:18 | P.CDIM_ITS ---
PROVIDER RESPONSE TEXT: To clarify, the appropriate diagnosis supported by the clinical indicators: Other (explain): yogesh -possible contaminant QUERY TEXT: PHYSICIAN'S DOCUMENTATION REQUEST Date of Query: 07/22/2024 11:12 AM EDT Patient Name: Shanti Shipley Admit Date: 07/11/2024 Dear Lexx Flanagan MD, RETROSPECTIVE QUERY A review of the medical record indicates additional documentation may be needed. Please review below and update the documentation accordingly. Clinical Indicators: microbiology 07/14 - Yogesh albicans 2+ Discharge summary - She reports subjective fevers, productive cough, throat irritation, chest congest ion and shortness of breath. Chest x-ray shows patchy left middle lobe interstitial and alveolar densities suggestive of focal inf iltrate. Ed received 1 L IVF, Rocephin, doxycycline, methylpednisolone, DuoNebs. Pneumonia, strep and Legionella in a antigen sent, sputum cultures pending, but since patient is impr oving she will go home on Ceftin, doxycycline. Based on the above, could you clarify in the Progress Notes further specificity regarding the most li angelina type of pneumonia you suspect you are treating (even if specific organism may not be known)? Yogesh pneumonia Possible, probable, suspected etc. Other organism associated with Pneumonia Please specify known or suspected organism Other (explain) Clinically unable to determine (explain) Thank you, Ximena Palma, CCS, CDIS Use of terms such as suspected, likely, concern for, or probable (associated with a specific diagnosi s that is being evaluated, monitored, or treated as if it exists) are acceptable and can be coded in the inpatient se tting, when documented at the time of discharge. Please use your independent medical judgment in providing your response. THIS QUERY IS PART OF THE PERMANENT MEDICAL RECORD
== END 2024-07-14 12:22 | disposition home or self-care (01) | DRG 871 ==
LOC: HO.ED 10:09 → HO.EDOVER 12:33 → HO.S3 19:18
PROVIDERS: Admitting Provider Physician Assistant; Emergency Provider Emergency Medicine; PCP Internal Medicine; Visit Provider Internal Medicine
DX: A41.9 Sepsis, unspecified organism (principal); J18.9 Pneumonia, unspecified organism; J96.01 Acute respiratory failure with hypoxia; I48.19 Other persistent atrial fibrillation; I50.22 Chronic systolic (congestive) heart failure; E87.1 Hypo-osmolality and hyponatremia; N18.30 Chronic kidney disease, stage 3 unspecified; Z87.891 Personal history of nicotine dependence; Z79.01 Long term (current) use of anticoagulants; Z79.899 Other long term (current) drug therapy
CPT/HCPCS: 0241U; 36415; 71046; 80048; 82803; 83605; 83880; 84484; 85025; 87040; 87070; 87077; 87205; 87449; 87899; 93005; 94640; 99285; J0696; J2919

== ENCOUNTER → 2024-07-11 12:27 | Outpatient (BNV) | payer MEDICARE, SELFPAY ==
[2023-11-13 11:32] VITALS: BP 114/68; BP 136/82; BP 148/92; BMI 24.1
== END ==
PROVIDERS: Admitting Provider Physician Assistant; Emergency Provider Emergency Medicine; PCP Internal Medicine; Visit Provider Physician Assistant
DX: A41.9 Sepsis, unspecified organism (principal); J96.01 Acute respiratory failure with hypoxia; J18.9 Pneumonia, unspecified organism
CPT/HCPCS: 99223; 99231; 99232; 99239

== ENCOUNTER 2024-07-29 13:59 | Outpatient (AMB) | payer MEDICARE, SELFPAY ==
[2023-11-13 11:32] VITALS: BP 114/68; BP 136/82; BP 148/92; BMI 24.1
[2024-07-29 14:13] VITALS: BP 122/62; PULSE 90; O2SAT 96; BMI 26.3
--- NOTE | 2024-07-29 14:13 | A.OFFPC_ITS ---
Vital Signs 07/29/24 14:13 Height 5 ft 6 in Weight 163 lb BMI 26.3 BP 122/62 Blood Pressure Location Rt brachial Position Sitting Pulse 90 Pulse Source Pulse Oximeter Pulse Oximetry (%) 96 Oxygen Delivery Method Room Air Intake Visit Reasons: [facility] [place] [facility] pneumonia Intake Note: pt is here for f/up pe: pneumonia Keyboarding Clerk Required: No Accompanied by: Self / Same As Patient Allergies No Known Allergies Allergy (Verified 07/29/24 14:14) Medication List - Last Reconciled 07/29/24 by Carolyn Jurado MD acetaminophen 650 mg PO Q4H PRN apixaban (Eliquis) 5 mg PO BID 90 days carvedilol 1 1/2 orally 2 times a day; must administer with a meal/food 90 days furosemide (Lasix) 40 mg PO DAILY sacubitril-valsartan 49-51 mg (Entresto) 1 tab PO BID 90 days vitamin A-vitamin C-vit E-min 1 tab PO DAILY Tobacco use date assessed: 03/16/24 Fall risk assessment: No Falls in past year Last assessed Fall Risk: 07/29/24 Dental Screening Dental Screen Date: 03/16/24 HPI [facility] [place] pneumonia HPI Details Patient presents for the follow-up of hospitalization for community- acquired pneumonia and hypoxia. She completed course of antibiotics and is feeling better, denies cough chest pain shortness of breath PND orthopnea pleurisy fever or chills. [facility] Medical History (Updated 07/29/24 @ 15:14 by Carolyn Jurado MD) Nonischemic cardiomyopathy Chronic kidney disease, stage 3 Atrial fibrillation CHF exacerbation Surgical History No pertinent past surgical history Family History Father Substance use disorder Mother No problems noted. Social History Household Members: None Household Members Other:: lives alone, 1 brother, 1 daughter lives in [place], Housing: House Do you presently have visiting nurse or other home services: No (Planning on hiring a assistant executive housekeeper) Alcohol intake: never Patient Tobacco Use Status: Former Tobacco user e-Cigarette/Vaping Use: Never Used Second Hand Smoke Exposure: No service: No Current occupational status: retired Cognitive needs: No Hearing needs: No Vision needs: Yes Questionnaire Thrive Questionnaire Date Thrive assessed: 07/12/24 DEANDRA-7 AMB Questionnaire DEANDRA-7 Date DEANDRA - 7 assessed: 03/16/24 Source: Developed by Drs. Josh Lacey, Shanna Castro, Calixto Cleary and colleagues, with an educational vitaliy from [employer]. Review of Systems Const All systems reviewed & are unremarkable except as noted in HPI and below ENT Reports no additional complaints Card Reports no additional complaints Resp Reports no additional complaints GI Reports no additional complaints Reports no additional complaints Physical exam (Primary Care) Vital Signs: Last Vital Signs Pulse 90 07/29/24 14:13 BP 122/62 07/29/24 14:13 Pulse Ox 96 07/29/24 14:13 Oxygen Delivery Method Room Air 07/29/24 14:13 BMI result Body Mass Index 26.3 Tobacco/Smoking Status: Tobacco use Status Tobacco use date assessed 03/16/24 07/29/24 14:14 Patient Tobacco Use Status Former Tobacco user 07/29/24 14:14 e-Cigarette/Vaping Use Never Used 07/29/24 14:14 Thrive Assessment: Date of Thrive Assessment Date Thrive assessed 07/12/24 07/29/24 14:14 Const General: no acute distress HENMT Head: Yes normal to inspection Neck Neck: Yes supple Resp Effort & Inspection: normal respiratory effort Auscultation: crackles and diminished lung sounds Cardio Rate: tachycardic Rhythm: abnormal rhythm irregularly irregular Heart sounds: S1 normal heart sound present and S2 normal heart sound present Extrem General: Yes no clubbing, cyanosis or edema Coding Level of Care Code Est Pt Level 4 (64958) Diagnoses Atrial fibrillation with RVR I48.91 Nonischemic cardiomyopathy I42.8 Hospital discharge follow-up Z09 Chronic kidney disease, stage 3 N18.30 Assessment & Plan Assessment & Plan (1) Atrial fibrillation with RVR: Comment: 05/02, rate controlled Code(s): I48.91 - Unspecified atrial fibrillation Category: Medical Plan: Increase carvedilol to 1-1/2 tablet twice a day continue Eliquis for anticoagulation, follow-up in 1 month (2) Nonischemic cardiomyopathy: Comment: EF 20% in 2021, improved to 56% with inferior lateral wall and basal inferior wall akinesis 09/02, and negative stress test May 2022, Echo 04/2024 EF 45- 50%, Code(s): I42.8 - Other cardiomyopathies Category: Medical Plan: Improving ejection fraction continue Entresto and increase carvedilol (3) Hospital discharge follow-up: Code(s): Z09 - Encounter for follow-up examination after completed treatment for conditions other than malignant neoplasm Category: Medical Plan: Patient completed course of antibiotics, recheck chest x-ray in 2 weeks (4) Chronic kidney disease, stage 3: Code(s): N18.30 - Chronic kidney disease, stage 3 unspecified Category: Medical Plan: Avoid nephrotoxins, monitor renal function, repeat basic metabolic panel in 2 weeks Orders: Orders XR chest 1V 2 Weeks J18.9 - Pneumonia, unspecified organism Basic Metabolic Panel 2 Weeks E87.1 - Hypo-osmolality and hyponatremia, J18.9 - Pneumonia, unspecified organism, Z09 - Encounter for follow-up examination after completed treatment for conditions other than malignant neoplasm Medications: Changed From carvedilol must administer with a meal/food 6.25 mg PO BID 90 days 180 tabs 3RF To carvedilol 1 1/2 orally 2 times a day; must administer with a meal/food 90 days 270 tabs 3RF
== END 2024-07-29 15:12 | disposition home or self-care (01) ==
PROVIDERS: PCP Internal Medicine; Visit Provider Internal Medicine
DX: I48.91 Unspecified atrial fibrillation (principal); I42.8 Other cardiomyopathies; Z09 Encounter for follow-up examination after completed treatment for conditions other than malignant neoplasm; N18.30 Chronic kidney disease, stage 3 unspecified

== ENCOUNTER → 2024-07-29 13:59 | Outpatient (BNVA) | payer MEDICARE, SELFPAY ==
[2023-11-13 11:32] VITALS: BP 114/68; BP 136/82; BP 148/92; BMI 24.1
== END ==
PROVIDERS: PCP Internal Medicine; Visit Provider Internal Medicine
DX: J18.9 Pneumonia, unspecified organism (principal); I48.91 Unspecified atrial fibrillation; I42.8 Other cardiomyopathies; N18.30 Chronic kidney disease, stage 3 unspecified; Z79.899 Other long term (current) drug therapy
CPT/HCPCS: 99212

== ENCOUNTER 2024-08-12 13:04 | Outpatient (REF) | payer MEDICARE, SELFPAY ==
[2023-11-13 11:32] VITALS: BP 114/68; BP 136/82; BP 148/92; BMI 24.1
[2024-08-12 17:02] LABS: Anion Gap 13 (12-20); Blood Urea Nitrogen 19 mg/dL (9-16); Calcium 8.7 mg/dL (8.4-10.2); Carbon Dioxide 26 mmol/L (22-29); Chloride 103 mmol/L (96-108); Estimated Glomerular Filt Rate 43; Glucose Random 87 mg/dL (60-115); Potassium 3.9 mmol/L (3.3-5.1); Sodium 138 mmol/L (135-145)
== END 2024-08-12 13:05 | disposition home or self-care (01) ==
LOC: HO.HMGCX 13:04
PROVIDERS: PCP Internal Medicine; Visit Provider Internal Medicine
DX: E87.1 Hypo-osmolality and hyponatremia (principal); J18.9 Pneumonia, unspecified organism; Z09 Encounter for follow-up examination after completed treatment for conditions other than malignant neoplasm
CPT/HCPCS: 36415; 71045; 80048

== ENCOUNTER 2024-08-29 10:14 | Outpatient (AMB) | payer BC, SELFPAY ==
[2023-11-13 11:32] VITALS: BP 114/68; BP 136/82; BP 148/92; BMI 24.1
[2024-08-29 10:22] VITALS: BP 120/80; PULSE 75; BMI 26.8
--- NOTE | 2024-08-29 10:22 | MHC.OFFVIS ---
Vital Signs 08/29/24 10:22 Height 5 ft 6 in Weight 166 lb 3.657 oz BMI 26.8 BP 120/80 Blood Pressure Location Lt brachial Position Sitting Pulse 75 Pulse Source Monitor Intake Visit Reasons: 6m followup Intake Note: 6 mth f/up Fiberglass Product Tester Required: No Accompanied by: Self / Same As Patient Allergies No Known Allergies Allergy (Verified 07/29/24 14:14) Medication List - Last Reconciled 08/29/24 by Manny Mitchell MD acetaminophen 650 mg PO Q4H PRN apixaban (Eliquis) 5 mg PO BID 90 days carvedilol 1 1/2 orally 2 times a day; must administer with a meal/food 90 days furosemide (Lasix) 40 mg PO DAILY sacubitril-valsartan 49-51 mg (Entresto) 1 tab PO BID 90 days vitamin A-vitamin C-vit E-min 1 tab PO DAILY HPI Comments Details: 83-year-old female who is here for follow-up. She was seen in the hospital when she presented with atrial fibrillation. She was diagnosed with new onset cardiomyopathy. This was treated with guideline directed medical therapy. In August 2022 she had repeat echocardiography which showed EF of 50-55%. Clinically she has been euvolemic and denying any significant symptoms. In particular no shortness of breath, orthopnea or PND. No peripheral edema. Taking medications regularly. No bleeding concerns with apixaban. Continues to be stable on follow-up. : She returns for follow-up. She has been doing well. She is going to cardiac rehabilitation without any significant issues. She is saying she feels stronger as she is exercising. Blood pressure control is good. She is taking apixaban for anticoagulation. 02/24/24: She returns for follow-up. She has been doing well. Tolerating medications. No heart failure symptoms. No palpitations. 08/29/2024: She is here for follow-up. She has been doing well. Denying any palpitations. No chest pain or shortness of breath. No orthopnea PND or any congestive heart failure symptoms. Blood pressure well controlled. [facility] Medical History (Updated 08/29/24 @ 10:53 by Manny Mitchell MD) Nonischemic cardiomyopathy Chronic kidney disease, stage 3 Atrial fibrillation CHF exacerbation Surgical History No pertinent past surgical history Family History Father Substance use disorder Mother No problems noted. Social History Household Members: None Household Members Other:: lives alone, 1 brother, 1 daughter lives in [place], Housing: House Do you presently have visiting nurse or other home services: No (Planning on hiring a powerhouse electrician) Alcohol intake: never Patient Tobacco Use Status: Former Tobacco user e-Cigarette/Vaping Use: Never Used Second Hand Smoke Exposure: No service: No Current occupational status: retired Cognitive needs: No Hearing needs: No Vision needs: Yes Review of Systems Const Denies chills, Denies fatigue, Denies fever(s), Denies frequent falls, Denies weakness, Denies weight gain and Denies weight loss ENT Denies dizziness Card Denies chest pain, Denies leg edema, Denies lightheadedness, Denies palpitations, Denies dyspnea and Denies dyspnea on exertion Resp Denies cough, Denies dyspnea and Denies dyspnea on exertion GI Denies hematochezia Musc Denies abnormal gait, Denies muscle weakness, Denies numbness, Denies radiating pain into limb and Denies tingling Neuro Denies abnormal gait, Denies dizziness, Denies frequent falls, Denies numbness, Denies tingling and Denies weakness Endo Denies fatigue and Denies palpitations Physical Exam Vital Signs: Last Vital Signs Pulse 75 08/29/24 10:22 BP 120/80 08/29/24 10:22 BMI result Body Mass Index 26.8 GENERAL APPEARANCE: in no acute distress, pleasant. NECK: no carotid bruit, no jugular venous distention. SKIN: no suspicious lesions, warm and dry. HEART: no murmurs, regular rate and rhythm. LUNGS: clear to auscultation bilaterally. ABDOMEN: soft, nontender. EXTREMITIES: No significant edema. PERIPHERAL PULSES: equal. NEUROLOGIC: No gross deficits, AAO X 3 Office Procedures EKG Details: Atrial fibrillation 75 beats per minute, right bundle-branch block, inferior infarct, QTC 480 milliseconds. [id number], Complete Assessment & Plan Assessment & Plan (1) Atrial fibrillation: Comment: Holter 06/2023, average rate of 66, persistent AFib, no significant pauses Code(s): I48.91 - Unspecified atrial fibrillation Category: Medical (2) Cardiomyopathy: Code(s): I42.9 - Cardiomyopathy, unspecified Category: Medical Plan [age] year female with persistent atrial fibrillation currently being managed with rate control strategy and Bartholin LV dysfunction with EF 45 50% and basal inferior anterolateral and inferolateral akinesis on the echocardiography. No anginal symptoms. Clinically not in heart failure and is euvolemic. Blood pressure is well controlled. Heart rate is well controlled. On Eliquis for anticoagulation and no bleeding concerns. She will see us back in 6 months. We will repeat echocardiography in October to reassess ejection fraction. Thank you for allowing me to participate in the care of your patient. Please feel free to contact me if you have any questions. Orders: Orders CA Echo Limited 2 Months I42.9 - Cardiomyopathy, unspecified Coding Level of Care Code Est Pt Level 4 (19683) Diagnoses Atrial fibrillation I48.91 Cardiomyopathy I42.9 CPT Codes EKG - CPT: 74137-[id number], Complete ([id number])
== END 2024-08-29 10:46 | disposition home or self-care (01) ==
PROVIDERS: PCP Internal Medicine; Visit Provider Internal Medicine Cardiovascular Disease
DX: I48.91 Unspecified atrial fibrillation (principal); I42.9 Cardiomyopathy, unspecified
CPT/HCPCS: 93010; 99214

== ENCOUNTER → 2024-08-29 10:14 | Outpatient (BNVA) | payer BC, SELFPAY ==
[2023-11-13 11:32] VITALS: BP 114/68; BP 136/82; BP 148/92; BMI 24.1
== END ==
PROVIDERS: PCP Internal Medicine; Visit Provider Internal Medicine Cardiovascular Disease
DX: I48.91 Unspecified atrial fibrillation (principal); I42.9 Cardiomyopathy, unspecified; Z79.01 Long term (current) use of anticoagulants
CPT/HCPCS: 93005

== ENCOUNTER 2024-09-23 13:31 | Outpatient (AMB) | payer BC, SELFPAY ==
[2023-11-13 11:32] VITALS: BP 114/68; BP 136/82; BP 148/92; BMI 24.1
[2024-09-23 13:33] VITALS: BP 120/82; PULSE 85; O2SAT 94; BMI 27.3
--- NOTE | 2024-09-23 13:33 | MHC.PC.OV ---
Vital Signs 09/23/24 13:33 Height 5 ft 6 in Weight 169 lb BMI 27.3 BP 120/82 Blood Pressure Location Lt brachial Position Sitting Pulse 85 Pulse Source Pulse Oximeter Pulse Oximetry (%) 94 Oxygen Delivery Method Room Air Intake Visit Reasons: Rsched from 09/02 - Follow Up Intake Note: Pt is here today for a follow up visit. Allergies No Known Allergies Allergy (Verified 09/23/24 13:33) Medication List - Last Reconciled 09/23/24 by Carolyn Jurado MD acetaminophen 650 mg PO Q4H PRN apixaban (Eliquis) 5 mg PO BID 90 days carvedilol 12.5 mg PO BID furosemide (Lasix) 40 mg PO DAILY sacubitril-valsartan 49-51 mg (Entresto) 1 tab PO BID 90 days vitamin A-vitamin C-vit E-min 1 tab PO DAILY Tobacco use date assessed: 09/23/24 Dental Screening Dental Screen Date: 03/16/24 HPI Rsched from 09/02 - Follow Up HPI Details Patient presents for the follow-up on hypertension chronic AFib heart failure with reduced ejection fraction. Patient denies chest pain shortness of breath cough has been walking in the store [facility] Medical History Nonischemic cardiomyopathy Chronic kidney disease, stage 3 Atrial fibrillation CHF exacerbation Surgical History No pertinent past surgical history Family History Father Substance use disorder Mother No problems noted. Social History Household Members: None Household Members Other:: lives alone, 1 brother, 1 daughter lives in [place], Housing: House Do you presently have visiting nurse or other home services: No (Planning on hiring a medical housekeeper) Alcohol intake: never Patient Tobacco Use Status: Former Tobacco user e-Cigarette/Vaping Use: Never Used Second Hand Smoke Exposure: No service: No Current occupational status: retired Cognitive needs: No Hearing needs: No Vision needs: Yes Questionnaire Thrive Questionnaire Date Thrive assessed: 07/12/24 DEANDRA-7 AMB Questionnaire DEANDRA-7 Date DEANDRA - 7 assessed: 03/16/24 Source: Developed by Drs. Josh Lacey, Shanna Castro, Calixto Cleary and colleagues, with an educational vitaliy from [employer]. Review of Systems Const All systems reviewed & are unremarkable except as noted in HPI and below Eyes Reports no additional complaints ENT Reports no additional complaints Card Reports no additional complaints Resp Reports no additional complaints GI Reports no additional complaints Reports no additional complaints Physical exam (Primary Care) Vital Signs: Last Vital Signs Pulse 85 09/23/24 13:33 BP 120/82 09/23/24 13:33 Pulse Ox 94 09/23/24 13:33 Oxygen Delivery Method Room Air 09/23/24 13:33 BMI result Body Mass Index 27.3 Tobacco/Smoking Status: Tobacco use Status Tobacco use date assessed 09/23/24 09/23/24 13:33 Patient Tobacco Use Status Former Tobacco user 09/23/24 13:33 e-Cigarette/Vaping Use Never Used 09/23/24 13:33 Thrive Assessment: Date of Thrive Assessment Date Thrive assessed 07/12/24 09/23/24 13:33 Const General: no acute distress HENMT Head: Yes normal to inspection Neck Neck: Yes supple Resp Effort & Inspection: normal respiratory effort Auscultation: rhonchi and diminished lung sounds Cardio Rhythm: abnormal rhythm irregularly irregular Heart sounds: S1 normal heart sound present and S2 normal heart sound present GI Inspection: Yes normal to inspection Palpation (GI): Soft to palpation Percussion: Yes normal to percussion Auscultation: normal bowel sounds Coding Level of Care Code Est Pt Level 4 (70583) Diagnoses Atrial fibrillation with RVR I48.91 Nonischemic cardiomyopathy I42.8 Heart failure with reduced ejection fraction I50.20 Chronic kidney disease, stage 3 N18.30 Assessment & Plan Assessment & Plan (1) Atrial fibrillation with RVR: Comment: 05/02, rate controlled Code(s): I48.91 - Unspecified atrial fibrillation Category: Medical Plan: Heart rate is still in upper 80s , carvedilol will be increased to 12.5 mg twice a day, (2) Nonischemic cardiomyopathy: Comment: EF 20% in 2021, improved to 56% with inferior lateral wall and basal inferior wall akinesis 09/02, and negative stress test May 2022, Echo 04/2024 EF 45-50%, Code(s): I42.8 - Other cardiomyopathies Category: Medical Plan: Continue current medications, follow-up with the Cardiology. Patient will have echocardiogram in October (3) Heart failure with reduced ejection fraction: Code(s): I50.20 - Unspecified systolic (congestive) heart failure Category: Medical Plan: See above (4) Chronic kidney disease, stage 3: Code(s): N18.30 - Chronic kidney disease, stage 3 unspecified Category: Medical Plan: Monitor renal function avoid nephrotoxins Orders: Orders Complete Blood Count Auto Diff 3 Weeks I42.8 - Other cardiomyopathies, I48.91 - Unspecified atrial fibrillation, I50.20 - Unspecified systolic (congestive) heart failure, N18.30 - Chronic kidney disease, stage 3 unspecified TSH reflex Free T4 3 Weeks I42.8 - Other cardiomyopathies, I48.91 - Unspecified atrial fibrillation, I50.20 - Unspecified systolic (congestive) heart failure, N18.30 - Chronic kidney disease, stage 3 unspecified Comprehensive Gibson. Panel Fast 3 Weeks I42.8 - Other cardiomyopathies, I48.91 - Unspecified atrial fibrillation, I50.20 - Unspecified systolic (congestive) heart failure, N18.30 - Chronic kidney disease, stage 3 unspecified B Type Natriuretic Peptide 3 Weeks I42.8 - Other cardiomyopathies, I48.91 - Unspecified atrial fibrillation, I50.20 - Unspecified systolic (congestive) heart failure, N18.30 - Chronic kidney disease, stage 3 unspecified Medications: New carvedilol must administer with a meal/food 12.5 mg PO BID 180 tabs 1RF Discontinued carvedilol Discontinued Reason: Doctor's Order 1 1/2 orally 2 times a day; must administer with a meal/food 90 days 270 tabs 3RF
== END 2024-09-23 14:35 | disposition home or self-care (01) ==
PROVIDERS: PCP Internal Medicine; Visit Provider Internal Medicine
DX: I48.91 Unspecified atrial fibrillation (principal); I42.8 Other cardiomyopathies; I50.20 Unspecified systolic (congestive) heart failure; N18.30 Chronic kidney disease, stage 3 unspecified

== ENCOUNTER → 2024-09-23 13:31 | Outpatient (BNVA) | payer BC, SELFPAY ==
[2023-11-13 11:32] VITALS: BP 114/68; BP 136/82; BP 148/92; BMI 24.1
== END ==
PROVIDERS: PCP Internal Medicine; Visit Provider Internal Medicine

== ENCOUNTER → 2024-10-31 12:24 | Outpatient (REF) | payer MEDICARE, SELFPAY ==
[2023-11-13 11:32] VITALS: BP 114/68; BP 136/82; BP 148/92; BMI 24.1
--- NOTE | 2024-10-31 12:27 | CA_ITS ---
Transthoracic Echocardiogram Patient (Last, First, Middle): Shanti Shipley, Gender: Female Date of : 1940 Age: 83 Procedure Date: 10/31/2024 Procedure Type: Transthoracic Echocardiogram Location: OP Height: 167. cm Weight: 74.84 kg BSA: 1.84 m2 Heart Rate: 81 bpm BP: 155 / 90 mmHg Cuff Knitter: FREDIS Gunter MD: Manny Mitchell MD Betting Clerks: Yoandy Valentin MD Symptoms: I42.9 - Cardiomyopathy, unspecified Study Quality: Adequate. Limited by the order ECG Rhythm: Atrial Fibrillation Conclusions: - Normal LV ejection fraction of 55-60% Findings Left Ventricle Normal left ventricular size and systolic function. There is mildly increased left ventricular wall thickness. The visually estimated ejection fraction is between 55-60%. Diastolic function is indeterminate on the basis of available data. Wall Motion Rest Echo Findings The mid inferior, basal inferoseptal, and mid inferolateral segments are hypokinetic. The basal inferior, basal anterolateral, and basal inferolateral segments are akinetic. All other scored wall segments showed normal motion. Prior Study Comparison Changes noted compared to prior study dated: 04/11/2024. LV ejection fraction has improved Measurements 2D Linear Measurements IVSd: 1.35 0.6-0.9/0.6-1.0 cm LVIDd: 4.27 3.9-5.3/4.2-5.9 cm LVIDd Index: 2.32 2.4-3.2/2.2-3.1 cm/m2 LVIDs: 2.79 2.0-3.6 cm LVPWd: 1.07 0.7-1.1 cm LA Diam: 5.10 2.7-3.8/3.0-4.0 cm LAIDs Index: 2.77 1.5-2.3 cm/m2 LV Mass: 230.43 67-162/88-224 g LV Mass Index: 125.23 43-95/49-115 g/m2 LVOT Diam: 2.00 3.0+(-)1.3 cm 2D Systolic Function EF 4C: 57.50 >55% EF 2C: 56.60 >55% EF BiP: 57.40 >55% Mitral Valve MV Pk E: 0.81 MV Decel Time: 147.00 E'Lateral: 9.10 E'Medial: 6.20 E/E' Med: 13.10 E/E' Lat: 8.90 PHT: 43.00 MVA PHT: 5.12 Decel Moody: 5.53 LVOT LVOT Pk Stepan: 0.65 LVOT Mn Stepan: 0.47 LVOT VTI: 0.12 LVOT Pk Grad: 2.00 LVOT Mn Grad: 1.00 LVOT Diam: 2.00 LVOT Area: 3.14 Diastolic Function MV Pk E: 0.81 E'Medial: 6.20 E/E' Med: 13.10 E' Laterial: 9.10 E/E' Lat: 8.90 Great Vessels Aorta Sinus of Valsalva: 3.50 2.0-3.5 cm Ao Asc: 3.50 2.1-3.4 cm Updated in Other Vendor System with Status of Final Yoandy Valentin MD electronically signed on 11/01/2024 4:38:55 PM with status of Final
== END ==
LOC: HO.CARD 12:24
PROVIDERS: PCP Internal Medicine; Visit Provider Internal Medicine Cardiovascular Disease
DX: I42.9 Cardiomyopathy, unspecified (principal)
CPT/HCPCS: 93308

== ENCOUNTER → 2024-10-31 12:27 | Outpatient (BNV) | payer MEDICARE, SELFPAY ==
[2023-11-13 11:32] VITALS: BP 114/68; BP 136/82; BP 148/92; BMI 24.1
== END ==
PROVIDERS: PCP Internal Medicine; Visit Provider Internal Medicine Cardiovascular Disease
DX: I42.8 Other cardiomyopathies (principal)
CPT/HCPCS: 93308

== ENCOUNTER 2025-03-08 12:51 | Outpatient (AMB) | payer BC, SELFPAY ==
[2023-11-13 11:32] VITALS: BP 114/68; BP 136/82; BP 148/92; BMI 24.1
[2025-03-08 13:29] VITALS: BP 134/62; PULSE 92; BMI 29.4
--- NOTE | 2025-03-08 13:29 | A.OFFVIS_ITS ---
Vital Signs 03/08/25 13:29 Height 5 ft 6 in Weight 182 lb 1.629 oz BMI 29.4 BP 134/62 Blood Pressure Location Lt brachial Position Sitting Pulse 92 Pulse Source Monitor Intake Visit Reasons: 6m follow up Intake Note: 6 mth f/up Rubber Curer Required: No Accompanied by: Self / Same As Patient Allergies No Known Allergies Allergy (Verified 09/23/24 13:33) Medication List - Last Reconciled 03/08/25 by Manny Mitchell MD acetaminophen 650 mg PO Q4H PRN apixaban (Eliquis) 5 mg PO BID 90 days carvedilol 12.5 mg PO BID furosemide 40 mg PO DAILY sacubitril-valsartan 49-51 mg (Entresto) 1 tab PO BID 90 days vitamin A-vitamin C-vit E-min 1 tab PO DAILY HPI Comments Details: 83-year-old female who is here for follow-up. She was seen in the hospital when she presented with atrial fibrillation. She was diagnosed with new onset cardiomyopathy. This was treated with guideline directed medical therapy. In August 2022 she had repeat echocardiography which showed EF of 50-55%. Clinically she has been euvolemic and denying any significant symptoms. In particular no shortness of breath, orthopnea or PND. No peripheral edema. Taking medications regularly. No bleeding concerns with apixaban. Continues to be stable on follow-up. : She returns for follow-up. She has been doing well. She is going to cardiac rehabilitation without any significant issues. She is saying she feels stronger as she is exercising. Blood pressure control is good. She is taking apixaban for anticoagulation. 02/24/24: She returns for follow-up. She has been doing well. Tolerating medications. No heart failure symptoms. No palpitations. 08/29/2024: She is here for follow-up. She has been doing well. Denying any palpitations. No chest pain or shortness of breath. No orthopnea PND or any congestive heart failure symptoms. Blood pressure well controlled. 03/08/2025: She is here for follow-up. Denying any chest pain or shortness of breath. She is complaining of lower extremity edema which has developed over the last few weeks. She has not been watching salt in her diet as she should. October 2024 she had echocardiography which has shown EF 55-60% with regional wall motion abnormalities. [facility] Medical History Nonischemic cardiomyopathy Chronic kidney disease, stage 3 Atrial fibrillation CHF exacerbation Surgical History No pertinent past surgical history Family History Father Substance use disorder Mother No problems noted. Social History Household Members: None Household Members Other:: lives alone, 1 brother, 1 daughter lives in [place], Housing: House Do you presently have visiting nurse or other home services: No (Planning on hi ring a household appliance assembler) Alcohol intake: never Patient Tobacco Use Status: Former Tobacco user e-Cigarette/Vaping Use: Never Used Second Hand Smoke Exposure: No service: No Current occupational status: retired Cognitive needs: No Hearing needs: No Vision needs: Yes Review of Systems Const Denies chills, Denies fatigue, Denies fever(s), Denies frequent falls, Denies weakness, Denies weight gain and Denies weight loss ENT Denies dizziness Card Denies chest pain, Denies leg edema, Denies lightheadedness, Denies palpitations, Denies dyspnea and Denies dyspnea on exertion Resp Denies cough, Denies dyspnea and Denies dyspnea on exertion GI Denies hematochezia Musc Denies abnormal gait, Denies muscle weakness, Denies numbness, Denies radiating pain into limb and Denies tingling Neuro Denies abnormal gait, Denies dizziness, Denies frequent falls, Denies numbness, Denies tingling and Denies weakness Endo Denies fatigue and Denies palpitations Physical Exam Vital Signs: Last Vital Signs Pulse 92 03/08/25 13:29 BP 134/62 03/08/25 13:29 BMI result Body Mass Index 29.4 GENERAL APPEARANCE: in no acute distress, pleasant. NECK: no carotid bruit, no jugular venous distention. SKIN: no suspicious lesions, warm and dry. HEART: no murmurs, regular rate and rhythm. LUNGS: clear to auscultation bilaterally. ABDOMEN: soft, nontender. EXTREMITIES: 2+ edema bilaterally. PERIPHERAL PULSES: equal. NEUROLOGIC: No gross deficits, AAO X 3 Office Procedures EKG Details: Atrial fibrillation 92 beats per minute, leftward axis, right bundle-branch block, premature ventricular complexes, anterior infarct, inferior infarct, QTC 511 milliseconds. [id number], Complete Assessment & Plan Assessment & Plan (1) Atrial fibrillation: Comment: Holter 06/2023, average rate of 66, persistent AFib, no significant pauses Code(s): I48.91 - Unspecified atrial fibrillation Category: Medical (2) Chronic diastolic heart failure: Code(s): I50.32 - Chronic diastolic (congestive) heart failure Category: Medical Plan Pleasant 84 year female who is here for follow-up. She has background of cardiomyopathy and heart failure and has persistent atrial fibrillation. Her ejection fraction has improved despite being in atrial fibrillation and AFib is not the cause for cardiomyopathy. She does have regional wall motion abnormalities on the echocardiogram and it is likely that she has underlying coronary artery disease. She has no significant symptoms and currently we are not pursuing any further testing for that. She has bilateral lower extremity edema which is due to dietary indiscretion. I have advised her to stop eating any salt. Increasing the Lasix to 40 mg twice a day. She will follow up with us in couple of months. Thank you for allowing me to participate in the care of your patient. Please feel free to contact me if you have any questions. Medications: Changed From furosemide 40 mg PO DAILY 90 tabs 3RF To furosemide 40 mg PO BID 120 tabs 3RF Coding Level of Care Code Est Pt Level 4 (58345) Diagnoses Atrial fibrillation I48.91 Chronic diastolic heart failure I50.32 CPT Codes EKG - CPT: 56942-[id number], Complete ([id number])
--- OUTSIDE RECORDS SUMMARY | 2025-03-08 13:31 | XMS_ITS ---
Author Organization [facility] on Care Team Providers Care Concrete Stone Fabricator Name Role Phone Taina Michele Unavailable Unavailable Madeleine Richardson Unavailable Unavailable Nuria Houser Unavailable Unavailable Bayrno, Judi Unavailable Unavailable Elizabeth Bazzi Unavailable Unavailable Angeline Alcantar Unavailable Unavailable Josh Early Unavailable Unavailable Allergies and adverse reactions No Known Allergies Care Team Name Role Address Phone Organization Dates Nuria Houser PCP [address] [place] [address], [id number], [place] (Office): : [facility] 05/03/2022 - 05/15/2022 Taina Michele [address] [place], [place], [facility], [place] (Office): [phone] [facility] [place] 05/03/2022 - 05/15/2022 Madeleine Richardson [address] [place], [address], [place] (Office): [facility] [place] 05/03/2022 - 05/15/2022 Judi Verma [address] [place] [address], [id number], [place] (Office): [facility] [place] 05/03/2022 - 05/15/2022 Elizabeth Bazzi [address] [place], [address], [place] (Office): [facility] [place] 05/03/2022 - 05/15/2022 Angeline Katharine [address] [place] [address], [place], [address], [place] (Office): : [facility] [place] 05/03/2022 - 05/15/2022 Josh Early [address] [place] [address], [facility], [place] (Office): : [facility] [place] 05/03/2022 - 05/15/2022 Immunizations Immunization Status Vaccine Details Vaccine Code CodeSystem Devan e Notes SARS-COV-2 (COVID-19) completed SARS-COV-2 (COVID-19) vaccine, mRNA, spike protein, LNP, preservative free, 30 mcg/0.3mL dose Mfg: [employer] Step 2 of Multi-step with next step required 208 CVX created date: 05/03/2022 administered date: 12/06/2020 SARS-COV-2 (COVID-19) completed SARS-COV-2 (COVID-19) vaccine, mRNA, spike protein, LNP, preservative free, 30 mcg/0.3mL dose Mfg: [employer] Step 1 of Multi-step with next step required 208 CVX created date: 05/03/2022 administered date: 11/15/2020 Mental Status Section Date Assessment Total Score Description 05/15/2022 BIMS 12 moderate cognit joselito impairment CAM 0 No delirium ind icated PHQ-9 05 mild depression 05/09/2022 BIMS 12 moderate cognit joselito impairment CAM 0 No delirium ind icated PHQ-9 05 mild depression Problems Problem # Description Date of onset Resolved Date Code CodeSystem Concern Status 1 ACUTE RESPIRATORY FAILURE, UNSPECIFIED WHETHER WITH HYPOXIA OR HYPERCAPNIA [address] active 2 CARDIOMYOPATHY, UNSPECIFIED [address] active 3 CHRONIC COMBINED SYSTOLIC (CONGESTIVE) AND DIASTOLIC (CONGESTIVE) HEART FAILURE [address] active 4 LOCALIZED EDEMA [address] active 5 PAROXYSMAL ATRIAL FIBRILLATION [address] active 6 PERSONAL HISTORY OF COVID-[address] active 7 PLEURAL EFFUSION, NOT ELSEWHERE CLASSIFIED [address] active Reason for Referral No Reasons for Referral Entered Social History Social History Observation Description Start Date End Date Code Code System Current Smoking Status Tobacco smoking consumption unknown 099070700 SNOMED CT Sex Assigned At Female 1940 [address]85-1 [facility] Gender Identity Vital Signs Code Code System Vitals Name Values and Units Timing Information 9279-1 [facility] Respiratory Rate Value=18.0 Units=/m in 05/15/2022 8462-4 [facility] Blood Pressure-Diastolic Value=70 Un its=mmHg 05/15/2022 8480-6 [facility] Blood Pressure-Systolic Vmxgi=725 Un its=mmHg 05/15/2022 8310-5 [facility] Body Temperature Value=97.7 Units=?? F 05/15/2022 8867-4 [facility] Heart rate Value=78.0 Units=/min 01/2022 81318-9 [facility] O2 % BldC Oximetry Value=98.0 Units= % 05/15/2022 58463-7 [facility] Pain Level Value=0.0 05/15/2022 62702-3 [facility] Weight Betiv=540.0 Units=Lbs 10/2021 8302-2 [facility] Height Value=66.0 Units=Inches 05/08/2022
== END 2025-03-08 13:56 | disposition home or self-care (01) ==
LOC: HO.HCS 12:51
PROVIDERS: PCP Internal Medicine; Visit Provider Internal Medicine Cardiovascular Disease
DX: I48.91 Unspecified atrial fibrillation (principal); I50.32 Chronic diastolic (congestive) heart failure
CPT/HCPCS: 93010; 99214

== ENCOUNTER → 2025-03-08 12:51 | Outpatient (BNVA) | payer BC, SELFPAY ==
[2023-11-13 11:32] VITALS: BP 114/68; BP 136/82; BP 148/92; BMI 24.1
== END ==
PROVIDERS: PCP Internal Medicine; Visit Provider Internal Medicine Cardiovascular Disease
DX: I48.91 Unspecified atrial fibrillation (principal); I49.3 Ventricular premature depolarization; I49.1 Atrial premature depolarization; I45.10 Unspecified right bundle-branch block; N18.30 Chronic kidney disease, stage 3 unspecified; I11.0 Hypertensive heart disease with heart failure; I50.32 Chronic diastolic (congestive) heart failure
CPT/HCPCS: 93005

== ENCOUNTER 2025-04-18 13:04 | Outpatient (REF) | payer MEDICARE, SELFPAY ==
[2023-11-13 11:32] VITALS: BP 114/68; BP 136/82; BP 148/92; BMI 24.1
[2025-04-18 17:26] LABS: MANUAL DIFF FLAG NO
[2025-04-18 17:35] LABS: Hematocrit 45.4 % (37.0-47.0); Hemoglobin 15.0 g/dl (12.0-16.0); Imm Gran Abs Auto 0.02 X10*3/uL (0.00-0.03); Imm Gran Pct Auto 0.2 % (0.0-0.4); Lymphocytes Absolute Auto 2.5 X10*3/uL (1.2-4.9); Mean Corpuscular HGB Conc 33.0 g/dl (31.0-35.0); Mean Corpuscular Hemoglobin 29.1 pg (27.0-33.0); Mean Corpuscular Volume 88.2 fL (80.0-98.0); NRBC Abs Auto 0.000 X10*3/uL (0.0-0.012); NRBC Pct Auto 0.0 /100WBC (0.0-0.2); Platelet Count 230 X10*3/uL (160-400); Red Blood Count 5.15 X10*6/uL (4.20-5.50); White Blood Count 8.2 X10*3/uL (4.8-10.8)
[2025-04-18 18:06] LABS: Alanine Aminotransferase 9 U/L (0-31); Albumin Level 3.7 g/dL (3.5-5.0); Alkaline Phosphatase 76 U/L (39-117); Anion Gap 11 (12-20); Aspartate Amino Transferase 23 U/L (5-31); Blood Urea Nitrogen 23 mg/dL (9-16); Calcium 8.2 mg/dL (8.4-10.2); Carbon Dioxide 30 mmol/L (22-29); Chloride 100 mmol/L (96-108); Estimated Glomerular Filt Rate 31; Potassium 4.1 mmol/L (3.3-5.1); Sodium 137 mmol/L (135-145); Total Protein 6.1 g/dL (6.5-8.0)
== END 2025-04-18 13:05 | disposition home or self-care (01) ==
LOC: HO.HMGCLDS 13:04
PROVIDERS: PCP Internal Medicine; Visit Provider Internal Medicine
DX: Z00.00 Encounter for general adult medical examination without abnormal findings (principal); I48.91 Unspecified atrial fibrillation; D49.2 Neoplasm of unspecified behavior of bone, soft tissue, and skin; N18.30 Chronic kidney disease, stage 3 unspecified; I50.20 Unspecified systolic (congestive) heart failure; Z79.01 Long term (current) use of anticoagulants; I42.9 Cardiomyopathy, unspecified; Z13.31 Encounter for screening for depression; Z13.39 Encounter for screening examination for other mental health and behavioral disorders
CPT/HCPCS: 36415; 80053; 82306; 84443; 85025; 96127; 99397

== ENCOUNTER 2025-04-18 13:04 | Outpatient (AMB) | payer BC, SELFPAY ==
[2023-11-13 11:32] VITALS: BP 114/68; BP 136/82; BP 148/92; BMI 24.1
[2025-04-18 14:12] VITALS: BP 130/62; PULSE 76; O2SAT 93; BMI 30.5
--- NOTE | 2025-04-18 14:12 | MHC.PC.OV ---
Vital Signs 04/18/25 14:12 Height 5 ft 6 in Weight 189 lb BMI 30.5 BP 130/62 Blood Pressure Location Lt brachial Position Sitting Pulse 76 Pulse Source Pulse Oximeter Pulse Oximetry (%) 93 Oxygen Delivery Method Room Air Intake Visit Reasons: PE Intake Note: pt is here for PE Manager Photo Required: No Accompanied by: Self / Same As Patient Allergies No Known Allergies Allergy (Verified 04/18/25 14:16) Medication List - Last Reconciled 04/18/25 by Carolyn Jurado MD acetaminophen 650 mg PO Q4H PRN apixaban (Eliquis) 5 mg PO BID 90 days carvedilol 12.5 mg PO BID furosemide 40 mg PO BID sacubitril-valsartan 49-51 mg (Entresto) 1 tab PO BID 90 days vitamin A-vitamin C-vit E-min 1 tab PO DAILY Tobacco use date assessed: 04/18/25 Fall risk assessment: No Falls in past year Last assessed Fall Risk: 04/18/25 Dental Screening Dental Screen Date: 04/18/25 Did you have a dental visit in the last 12 months?: No Did you have a dental problem in the last 6 months where you did not have access to dental care?: No Was dental information given to patient?: Patient declined HPI PE HPI Details Patient presents for a physical. Heart failure with reduced ejection fraction chronic AFib chronic lower extremity edema stable on medications. Patient denies dyspnea on exertion chest pain palpitations. Patient has not been physically active. She lives alone and watches TV most of the day sitting in the chair but still able to cook for herself. Her daughter visits her once a week. [facility] Medical History (Updated 04/18/25 @ 15:02 by Carolyn Jurado MD) Heart failure with reduced ejection fraction Chronic kidney disease, stage 3 Atrial fibrillation CHF exacerbation Surgical History No pertinent past surgical history Family History Father Substance use disorder Mother No problems noted. Social History Household Members: None Household Members Other:: lives alone, 1 brother, 1 daughter lives in [place], Housing: House Do you presently have visiting nurse or other home services: No (Planning on hiring a feed house supervisor) Alcohol intake: never Patient Tobacco Use Status: Former Tobacco user e-Cigarette/Vaping Use: Never Used Second Hand Smoke Exposure: No service: No Current occupational status: retired Cognitive needs: No Hearing needs: No Vision needs: Yes Questionnaire PHQ-9 Over the last 2 weeks, how often have you been bothered by any of the following problems? 1. Little interest or pleasure in doing things: not at all 2. Feeling down, depressed, or hopeless: not at all 3. Trouble falling or staying asleep, or sleeping too much: not at all 4. Feeling tired or having little energy: not at all 5. Poor appetite or overeating: not at all 6. Feeling bad about yourself - or that you are a failure or have let yourself or your family down: not at all 7. Trouble concentrating on things, such as reading the newspaper or watching television: not at all 8. Moving or speaking so slowly that other people could have noticed. Or the opposite - being so fidgety or restless that you have been moving around a lot more than usual: not at all 9. Thoughts that you would be better off or of hurting yourself in some way: not at all Total score: 0 Depression Screening Interpretation: Negative Depression Screening Done: Yes 15016 - PHQ-9 Billing: Yes Source: Developed by Drs. Josh Lacey, Shanna Castro, Calixto Cleary and colleagues, with an educational vitaliy from [employer]. Thrive Questionnaire Date Thrive assessed: 04/18/25 I am a: Patient What is your living situation today?: I have a steady place to live Within the past 12 months, did the food you bought not last and you didn't have the money to get more?: Never true Within the past 12 months, did you worry whether your food would run out before you got money to buy more?: Never true Do you have trouble paying for medicines?: No Do you have trouble getting transportation to medical appointments?: No Do you have trouble paying your heating and electricity bill?: No Do you have trouble taking care of your child, family member or friend?: No Do you have trouble with day-to-day activities such as bathing, preparing meals, shopping, managing finances, etc.?: No Are you currently unemployed and looking for a job?: No Are you interested in more education?: No Please select the resources that you would like help with: None THRIVE Score: 0 AUDIT C Alcohol Use Questionnaire (AUDIT-C) 1. How often do you have a drink containing alcohol?: Never 3. How often do you have six or more drinks on one occasion?: Never Total Score: 0 Score Reviewed/Action Taken: Yes DEANDRA-7 AMB Questionnaire DEANDRA-7 Date DEANDRA - 7 assessed: 04/18/25 Feeling nervous, anxious, or on edge: 0 = Not at all Not being able to stop or control worryin = Not at all Worrying too much about different things: 0 = Not at all Trouble relaxin = Not at all Being so restless that it is hard to sit still: 0 = Not at all Becoming easily annoyed or irritable: 0 = Not at all Feeling afraid as if something awful might happen: 0 = Not at all Total DEANDRA-7 score (0-4 normal; 5-9 mild; 10-14 moderate; 15-21 severe): 0 Source: Developed by Drs. Josh Lacey, Shanna Castro, Calixto Cleary and colleagues, with an educational vitaliy from [employer]. DEANDRA-7 Assessment Billing DEANDRA-7 Assessment Tool: DEANDRA-7 Assessment 85228 Review of Systems Const All systems reviewed & are unremarkable except as noted in HPI and below Eyes Reports no additional complaints ENT Reports no additional complaints Card Reports no additional complaints Resp Reports no additional complaints GI Reports no additional complaints Reports no additional complaints Physical exam (Primary Care) Vital Signs: Last Vital Signs Pulse 76 04/18/25 14:12 BP 130/62 04/18/25 14:12 Pulse Ox 93 04/18/25 14:12 Oxygen Delivery Method Room Air 04/18/25 14:12 BMI result Body Mass Index 30.5 Tobacco/Smoking Status: Tobacco use Status Tobacco use date assessed 04/18/25 04/18/25 14:19 Patient Tobacco Use Status Former Tobacco user 04/18/25 14:12 e-Cigarette/Vaping Use Never Used 04/18/25 14:12 PHQ-9: PHQ-9 Score PHQ-9: Total score 0 04/18/25 14:19 Depression Screening Interpretation: Negative Thrive Assessment: Date of Thrive Assessment Date Thrive assessed 04/18/25 04/18/25 14:19 Const General: no acute distress HENMT Other: Scaly lesion on the tip of the nose with slight erythema no bleeding or ulcer Head: Yes normal to inspection Mouth: Normal oral and palatal mucosa present Neck Neck: Yes no lymphadenopathy and Yes supple Resp Effort & Inspection: normal respiratory effort Auscultation: clear to auscultation bilaterally Cardio Rhythm: abnormal rhythm irregularly irregular Heart sounds: S1 normal heart sound present and S2 normal heart sound present GI Inspection: Yes normal to inspection Palpation (GI): Soft to palpation Percussion: Yes normal to percussion Auscultation: normal bowel sounds Extrem Other: 3+ pitting edema bilaterally Coding Level of Care Code Est Pt Prev Care >65y(14936) Diagnoses Atrial fibrillation with RVR I48.91 Chronic kidney disease, stage 3 N18.30 Abnormal skin growth D49.2 Heart failure with reduced ejection fraction I50.20 Additional Codes DEANDRA-7 Assessment Billing - DEANDRA-7 Assessment Tool: DEANDRA-7 Assessment 73617 ([id number]) PHQ-9 - 92179 - PHQ-9 Billing: Yes ([id number]) Assessment & Plan Assessment & Plan (1) Atrial fibrillation with RVR: Comment: 05/02, rate controlled anticoagulated on Eliquis Code(s): I48.91 - Unspecified atrial fibrillation Category: Medical Plan: Continue beta graciela and Eliquis (2) Chronic kidney disease, stage 3: Code(s): N18.30 - Chronic kidney disease, stage 3 unspecified Category: Medical Plan: Monitor renal function avoid nephrotoxins (3) Abnormal skin growth: Comment: on nose, ? Squamous cell CA Code(s): D49.2 - Neoplasm of unspecified behavior of bone, soft tissue, and skin Category: Medical Plan: Referred to dermatology (4) Heart failure with reduced ejection fraction: Comment: EF 45 -50%. 04/2024 , Echo 10/2024 ejection fraction 55-60%, regional wall motion abnormalities, F/U [facility] [place] Code(s): I50.20 - Unspecified systolic (congestive) heart failure Category: Medical Plan: Continue current medications follow-up with Cardiology Orders: Orders Complete Blood Count Auto Diff Today I42.9 - Cardiomyopathy, unspecified, I48.91 - Unspecified atrial fibrillation, N18.30 - Chronic kidney disease, stage 3 unspecified Vitamin D 25-OH Total Today I42.9 - Cardiomyopathy, unspecified, I48.91 - Unspecified atrial fibrillation, N18.30 - Chronic kidney disease, stage 3 unspecified Comprehensive Met. Panel Today I42.9 - Cardiomyopathy, unspecified, I48.91 - Unspecified atrial fibrillation, N18.30 - Chronic kidney disease, stage 3 unspecified TSH reflex Free T4 Today I42.9 - Cardiomyopathy, unspecified, I48.91 - Unspecified atrial fibrillation, N18.30 - Chronic kidney disease, stage 3 unspecified Referrals Dermatology Referral D49.2 - Neoplasm of unspecified behavior of bone, soft tissue, and skin Medications: Refilled carvedilol must administer with a meal/food 12.5 mg PO BID 180 tabs 3RF apixaban (Eliquis) 5 mg PO BID 180 tabs 3RF 90 days sacubitril-valsartan 49-51 mg (Entresto) 1 tab PO BID 180 tabs 3RF 90 days
== END 2025-04-18 14:49 | disposition home or self-care (01) ==
LOC: HO.HMCC 13:06
PROVIDERS: PCP Internal Medicine; Visit Provider Internal Medicine
DX: Z00.00 Encounter for general adult medical examination without abnormal findings (principal); I48.91 Unspecified atrial fibrillation; N18.30 Chronic kidney disease, stage 3 unspecified; I50.20 Unspecified systolic (congestive) heart failure; D49.2 Neoplasm of unspecified behavior of bone, soft tissue, and skin

== ENCOUNTER 2025-05-23 08:19 | Outpatient (AMB) | payer BC, SELFPAY ==
[2023-11-13 11:32] VITALS: BP 114/68; BP 136/82; BP 148/92; BMI 24.1
[2025-05-23 08:24] VITALS: BP 130/72; PULSE 90; BMI 29.0
--- NOTE | 2025-05-23 08:24 | A.OFFVIS_ITS ---
Vital Signs 05/23/25 08:24 Height 5 ft 6 in Weight 179 lb 7.3 oz BMI 29.0 BP 130/72 Blood Pressure Location Rt brachial Position Sitting Pulse 90 Pulse Source Monitor Intake Visit Reasons: 3mth f/up Air Conditioning Technician Required: No Allergies No Known Allergies Allergy (Verified 05/23/25 08:26) Medication List - Last Reconciled 05/23/25 by Soledad Chow NP-C acetaminophen 650 mg PO Q4H PRN apixaban (Eliquis) 5 mg PO BID 90 days carvedilol 12.5 mg PO BID furosemide 40 mg PO BID sacubitril-valsartan 49-51 mg (Entresto) 1 tab PO BID 90 days vitamin A-vitamin C-vit E-min 1 tab PO DAILY HPI HPI 3mth f/up: Details: Shanti is an 84 yo female with PMH of CKD, RBBB, CMP, chronic atrial fibrillation, CHF who presents for follow up. On last visit she had leg edema and her Lasix dose was increased. Today she reports she has been doing well overall. She has noticed less leg edema on the increased dose of Lasix. She does get a dry throat at time and has to drink extra water. No concerning shortness of breath, PND, orthopnea. She is not having chest discomfort at rest or during activity. She will feel occasional palpitations. No lightheadedness, presyncope, syncope. Compliant with medications. No bleeding issues reported. [facility] Medical History Heart failure with reduced ejection fraction Chronic kidney disease, stage 3 Atrial fibrillation CHF exacerbation Surgical History No pertinent past surgical history Family History Father Substance use disorder Mother No problems noted. Social History Household Members: None Household Members Other:: lives alone, 1 brother, 1 daughter lives in [place], Housing: House Do you presently have visiting nurse or other home services: No (Planning on hiring a warehouse pricing and inventory clerk) Alcohol intake: never Patient Tobacco Use Status: Former Tobacco user e-Cigarette/Vaping Use: Never Used Second Hand Smoke Exposure: No service: No Current occupational status: retired Cognitive needs: No Hearing needs: No Vision needs: Yes Review of Systems Const All systems reviewed & are unremarkable except as noted in HPI and below ENT Denies dizziness Card Denies chest pain, Denies chest pain at rest, Denies chest pain with activity, Denies rapid heart rate, Denies pedal edema, Denies edema, Denies leg edema, Denies lightheadedness, Denies palpitations, Denies dyspnea, Denies dyspnea on exertion and Denies orthopnea Resp Denies cough, Denies dyspnea and Denies dyspnea on exertion GI Denies hematochezia and Denies change in stool character Musc Denies abnormal gait, Denies limited range of motion, Denies muscle cramps, Denies muscle weakness, Denies numbness, Denies radiating pain into limb, Denies stiffness and Denies tingling Neuro Denies abnormal gait, Denies dizziness, Denies numbness and Denies tingling Endo Denies palpitations Physical Exam Vital Signs: Last Vital Signs Pulse 90 05/23/25 08:24 BP 130/72 05/23/25 08:24 BMI result Body Mass Index 29.0 Const General: cooperative, healthy appearing, comfortable and no acute distress Orientation/consciousness: patient oriented x3 Neck Neck: Yes normal visual inspection Resp Effort & Inspection: normal respiratory effort Auscultation: clear to auscultation bilaterally, no crackles, no rales, no rhonchi and no wheezes Cardio Rate: regular rate Rhythm: regular rhythm Heart sounds: S1 normal heart sound present, S2 normal heart sound present, no gallops, no murmurs and no rubs Neuro General: patient oriented x3 Extrem Other: mild leg sweling - R>L - overall improved per her General: No calf tenderness Psych Appearance: grossly normal Mental Status: mental status grossly normal Speech and movement: Normal speech and movement present Office Procedures EKG Details: Today, read by me, atrial fibrillation, RBBB, one PVC, T abn inferiorly - same as prior EKG, rate 90, JT index 88 [id number], Complete Assessment & Plan Assessment & Plan (1) Atrial fibrillation: Comment: Holter 06/2023, average rate of 66, persistent AFib, no significant pauses Code(s): I48.91 - Unspecified atrial fibrillation Category: Medical Plan: Known persistent atrial fibrillation treated with heart rate control using carvedilol. EKG done today showing AFib with PVC, rate 90. She may have some mild dehydration adding to her slightly elevated heart rate. Will be reducing her Lasix. Last echocardiogram 10/31/2024 showed EF 55-60%, mild LVH, inferior wall motion abnormality. Labs 04/18/2025 showed hemoglobin 15, BUN 23, creatinine 1.57. Continue current carvedilol dose. Continue Eliquis for anticoagulation. We will be rechecking her creatinine and if it remains elevated will need to reduce her Eliquis dose down to 2.5 mg b.i.d.. (2) Cardiomyopathy: Code(s): I42.9 - Cardiomyopathy, unspecified Category: Medical Plan: Known history of mild cardiomyopathy with normalization of EF as seen on last echocardiogram. A nuclear stress test from 05/20/2022 did show no clear ischemia, fixed defect in the basal inferior and inferior lateral wall. She does not appear fluid overloaded on exam. Continue carvedilol and Entresto for neurohormonal modulation. Leg edema has improved, creatinine is elevated. Will reduce her Lasix down to 40 mg in the a.m. and 20 mg in the p.m.. Recheck BMP. Signs and symptoms of heart failure reviewed with her. (3) Heart failure with reduced ejection fraction: Comment: EF 45 -50%. 04/2024 , Echo 10/2024 ejection fraction 55-60%, regional wall motion abnormalities, F/[place] [facility] [place] Code(s): I50.20 - Unspecified systolic (congestive) heart failure Category: Medical Plan: Stable as above (4) Chronic kidney disease, stage 3: Code(s): N18.30 - Chronic kidney disease, stage 3 unspecified Category: Medical Plan: Rechecking kidney function on upcoming labs.. Plan I discussed with the patient the importance of reducing her diuretic dosage to protect her kidneys and the need for a follow-up blood test to monitor kidney function. We talked about maintaining a low-salt diet to help manage her symptoms and the importance of reporting any new or worsening symptoms, such as increased leg swelling or shortness of breath. Orders: Orders Basic Metabolic Panel Today I50.20 - Unspecified systolic (congestive) heart failure Medications: Changed From furosemide 40 mg PO BID 120 tabs 3RF To furosemide 40 mg orally 1 tab in the am and 1/2 tab in pm; 135 tabs 3RF 90 days Patient Instructions: - Reduce diuretic dosage as instructed. - Follow a low-salt diet. - Report any new or worsening symptoms, such as increased leg swelling or shortness of breath. - Attend follow-up blood test in two weeks. Patient was informed and verbally consented to the use of an ambient scribe for clinic note documentation during this visit. Visit time spent on chart review, interview, assessment, orders, documentation. Coding Level of Care Code Est Pt Level 4 (60301) Complex EM visit Add On G2211 Diagnoses Atrial fibrillation I48.91 Cardiomyopathy I42.9 Heart failure with reduced ejection fraction I50.20 Chronic kidney disease, stage 3 N18.30 CPT Codes EKG - CPT: 78604-[id number], Complete ([id number]) Time Spent (min) 28
== END 2025-05-23 08:45 | disposition home or self-care (01) ==
LOC: HO.HCS 08:20
PROVIDERS: PCP Internal Medicine; Visit Provider Nurse Practitioner Family
DX: I48.91 Unspecified atrial fibrillation (principal); I42.9 Cardiomyopathy, unspecified; I50.20 Unspecified systolic (congestive) heart failure; N18.30 Chronic kidney disease, stage 3 unspecified
CPT/HCPCS: 93010; 99214

== ENCOUNTER → 2025-05-23 08:19 | Outpatient (BNVA) | payer BC, SELFPAY ==
[2023-11-13 11:32] VITALS: BP 114/68; BP 136/82; BP 148/92; BMI 24.1
== END ==
PROVIDERS: PCP Internal Medicine; Visit Provider Nurse Practitioner Family
DX: I48.91 Unspecified atrial fibrillation (principal); I49.3 Ventricular premature depolarization; I45.10 Unspecified right bundle-branch block; I42.9 Cardiomyopathy, unspecified; I13.0 Hypertensive heart and chronic kidney disease with heart failure and stage 1 through stage 4 chronic kidney disease, or unspecified chronic kidney disease; N18.30 Chronic kidney disease, stage 3 unspecified; I50.20 Unspecified systolic (congestive) heart failure; Z87.891 Personal history of nicotine dependence
CPT/HCPCS: 93005